=== PATIENT | female | born 1950 | race Caucasian/White ===

== ENCOUNTER → 2017-11-09 08:42 | Outpatient (CLI) | payer MEDICARE, SELFPAY ==
--- NOTE | 2017-11-09 08:49 | CI_ITS ---
Cerebrovascular Exam Indications: 780.4 Dizziness and giddiness. 433.10 Occlusion/stenosis of carotid artery without cerebral infarction. IMPRESSIONS 1. The bilateral vertebral arteries are patent with normal antegrade flow. 2. Study suggests 20-49%(upper end of scale)stenosis involving the right internal carotid artery. 3. Study suggests less than 20% stenosis involving the left internal carotid artery. No change from the study of 13-Jan-2014. History: Risk factors: Hypertension. Carotid duplex study. Complete study and Doppler flow study including spectral analysis, color and seo scale imaging. Height: Height: 165.1cm. Height: 65in. Weight: Weight: 75.3kg. Weight: 165.7lb. Body mass index: BMI: 27.6kg/m^2. Body surface area: BSA: 1.88m^2. Location: Vascular laboratory. Patient status: Outpatient. Tables: Arterial flow: + +--------+---------+ Location V sys V ed + +--------+---------+ Right CCA - proximal 51.9cm/s 13.4cm/s + +--------+---------+ Right CCA - distal 73.9cm/s 19.6cm/s + +--------+---------+ Right ECA 130cm/s --------- + +--------+---------+ Right ICA - proximal 93.5cm/s 19.6cm/s + +--------+---------+ Right ICA - mid 80.9cm/s 18.9cm/s + +--------+---------+ Right ICA - distal 95.9cm/s 29.1cm/s + +--------+---------+ Right vertebral 60.5cm/s --------- + +--------+---------+ Left CCA - proximal 63.6cm/s 12.6cm/s + +--------+---------+ Left CCA - distal 80.9cm/s 17.3cm/s + +--------+---------+ Left ECA 93.5cm/s --------- + +--------+---------+ Left ICA - proximal 101cm/s 22cm/s + +--------+---------+ Left ICA - mid 132cm/s -29.9cm/s + +--------+---------+ Left ICA - distal 135cm/s 33.8cm/s + +--------+---------+ Left vertebral 54.2cm/s --------- + +--------+---------+ Velocity ratios: + + + + + + Right, V sys Right, V ed Left, V sys Left, V ed + + + + + + Max ICA/dist CCA 1.3 1.48 1.67 1.95 + + + + + + (Report amended ) Electronically signed by: Eder Beckford [id number]
== END ==
PROVIDERS: PCP Family Medicine; Visit Provider Family Medicine
DX: R42 Dizziness and giddiness
CPT/HCPCS: 93880

== ENCOUNTER → 2017-11-16 13:09 | Outpatient (CLI) | payer MEDICARE, SELFPAY | PROVIDERS: PCP Family Medicine; Visit Provider Family Medicine | DX: G47.30 Sleep apnea, unspecified (principal); I10 Essential (primary) hypertension; R06.83 Snoring | CPT/HCPCS: G0399 ==

== ENCOUNTER → 2018-02-15 07:36 | Outpatient (CLI) | payer MEDICARE, SELFPAY ==
[2018-02-15 09:02] LABS: Alanine Aminotransferase 27 U/L (12-78); Albumin Level 3.8 gm/dL (3.4-5.0); Albumin/Globulin Ratio 1.1 (1.1-1.8); Alkaline Phosphatase 53 U/L (46-116); Anion Gap 13.8 mEq/L (5-15); Aspartate Amino Transferase 18 U/L (15-37); Bilirubin,Total 0.4 mg/dL (0.2-1.0); Blood Urea Nitrogen 16 mg/dL (7-18); Calcium 9.3 mg/dL (8.5-10.1); Carbon Dioxide 29 mmol/L (21.0-32.0); Chloride 103 mmol/L (98-107); Chol/HDL Ratio 3.1 (1-3.5); Cholesterol 132 mg/dL (140-200); Creatinine,Serum 0.95 mg/dL (0.55-1.02); Estimated Glomerular Filt Rate 58 ml/min (>60); GFR (African American) 71 ML/MIN (>60); Globulin 3.5 gm/dl (1.3-3.2); Glucose 178 mg/dL (74-106); HDL Cholesterol 42 mg/dL (29-89); Iron 62 ug/dl (28-170); LDL Cholesterol 70 mg/dL (0-130); Potassium 3.8 mmoL/L (3.5-5.1); Sodium 142 mmol/L (136-145); Total Protein,Serum 7.3 gm/dL (6.4-8.2); Triglycerides 101 mg/dL (30-200); VLDL Cholesterol 20 mg/dL (0-40)
== END ==
PROVIDERS: Visit Provider Family Medicine
DX: E11.9 Type 2 diabetes mellitus without complications (principal); E78.5 Hyperlipidemia, unspecified; I10 Essential (primary) hypertension
CPT/HCPCS: 36415; 80053; 80061; 83036; 83540; 85018

== ENCOUNTER → 2018-03-29 09:51 | Outpatient (CLI) | payer MEDICARE, SELFPAY ==
--- NOTE | 2018-03-29 09:53 | XR_ITS ---
XR foot wt bearing LT 3V HISTORY: ITS.REASON: pain ORDERING PHYSICIAN: Marybel Smith DPM PATIENT AGE: 67 years COMPARISON: None FINDINGS: There is mild hallux valgus with first metatarsophalangeal angle of 29 degrees with osteoarthritic changes of the first MTP joint and mild soft tissue thickening at the distal first MTP medially with minimal bony hypertrophy changes of first metatarsal distally. There is flexion of the are no. No other significant anomalies are evident IMPRESSION: Hallux valgus with osteoarthritis and bunion formation at the first MTP Hammertoe deformity of the third toe
--- NOTE | 2018-03-29 09:53 | XR_ITS ---
XR foot wt bearing RT 3V HISTORY: ITS.REASON: pain ORDERING PHYSICIAN: Marybel Smith DPM PATIENT AGE: 67 years COMPARISON: None FINDINGS: There is moderate hallux valgus of 32 degrees with mild osteoarthritic change of the first MTP bony hypertrophic changes at the distal aspect of the first metatarsal with minimal calcification soft tissues medial to the head of the first metatarsal. No other significant anomalies are evident. Minimal hypertrophic changes are present at the distal aspect of the tibia. IMPRESSION: Moderate hallux valgus with osteoarthritis and bunion formation at the first metatarsophalangeal
== END ==
PROVIDERS: Visit Provider Podiatrist
DX: B35.1 Tinea unguium (principal); E11.8 Type 2 diabetes mellitus with unspecified complications
CPT/HCPCS: 73630

== ENCOUNTER → 2018-03-29 11:48 | Outpatient (REF) | payer MEDICARE, SELFPAY | LOC: LAB 11:48 | PROVIDERS: Visit Provider Podiatrist | DX: B35.1 Tinea unguium (principal); E11.8 Type 2 diabetes mellitus with unspecified complications | CPT/HCPCS: 73630; 87102; 87206; 87220 ==

== ENCOUNTER → 2018-04-02 09:19 | Outpatient (POV) | payer MEDICARE, SELFPAY | PROVIDERS: Visit Provider Podiatrist | DX: Z00.00 Encounter for general adult medical examination without abnormal findings (principal) ==

== ENCOUNTER → 2018-07-23 08:27 | Outpatient (CLI) | payer MEDICARE, SELFPAY ==
--- NOTE | 2018-07-23 08:30 | MM_ITS ---
MM Dig screening mamm BI w/CAD ORDERING PHYSICIAN : Ramos Betts MD PATIENT AGE: 68 years GENDER: Female COMPARISON: May 2016, October 2013 and 2014 INDICATION: ITS.REASON: SCREENING no hormones. No new complaints.. Family history.: Mother with breast cancer age 50 TECHNIQUE: Standard CC and MLO images were obtained. R2 CAD reviewed. FINDINGS: Lower density breast with no areas of significant concern. Also moderate or density breast with fibroglandular elements most evident central and towards upper-outer quadrant. No significant change since prior studies with no suspicious or dominant mass or: No suspicious calcifications. No areas of significant architectural distortion Bilateral follow-up in one year recommended . IMPRESSION: Stable bilateral mammogram. No significant new findings. Bilateral follow-up in one year recommended. BI-RADS Category: 1 Negative RECOMMENDED FOLLOW-UP: 1YR 1 YEAR FOLLOW-UP (A letter has been sent to the patient regarding results of the study.)
== END ==
PROVIDERS: Family Provider Family Medicine; PCP Family Medicine; Visit Provider Family Medicine
DX: Z12.31 Encounter for screening mammogram for malignant neoplasm of breast (principal)
CPT/HCPCS: 77067

== ENCOUNTER → 2018-09-09 13:02 | Outpatient (CLI) | payer MEDICARE, SELFPAY ==
--- NOTE | 2018-09-09 13:13 | MR_ITS ---
MR cervical spine wo con, MR 3-d myelogram/MRCP HISTORY: Neck pain, left upper extremity pain, decreased range of motion of the neck ITS.REASON: evaluation for cervical spondylosis w/myelopathy ORDERING PHYSICIAN: Karey Lund MD PATIENT AGE: 68 years Comparison: CT 01-21-16 TECHNIQUE: Standard multiplanar multiecho sequences are performed without contrast. 3-D MIP and myelographic images are also rendered and reviewed FINDINGS: There is straightening of the cervical lordosis. This may be due to patient positioning or muscle spasm. The craniocervical junction has an unremarkable appearance. C2-C3: Unremarkable. C3-C4: Minimal bulging disc. C4-C5: Degenerative disc disease with bulging disc and posterior endplate ridging. There is narrowing of the canal at 6 mm along with bilateral lateral recess and foraminal narrowing. The bulging disc/osteophytes abut the cord with only minimal flattening anteriorly. C5-C6: Degenerative disc disease with bulging disc with broad-based disc osteophyte complex slightly eccentric toward the left. This is causing canal stenosis of 7 mm with mild impingement upon the anterior left aspect of the cord with moderate left lateral recess and foraminal narrowing with minimal flattening of the cord anteriorly and on the left. C6-C7: Degenerative disc disease with bulging disc eccentric toward the right with narrowing of the canal at 8 mm and mild flattening of the anterior right aspect of the cord from the bulging disc along with moderate right lateral recess and foraminal narrowing. C7-T1: Mild degenerative disc disease. T1-T2: Unremarkable. IMPRESSION: 1. C4-C5: Degenerative disc disease with bulging disc and posterior endplate ridging. There is narrowing of the canal at 6 mm along with bilateral lateral recess and foraminal narrowing. The bulging disc/osteophytes abut the cord with only minimal flattening anteriorly. 2. C5-C6: Degenerative disc disease with bulging disc with broad-based disc osteophyte complex slightly eccentric toward the left. This is causing canal stenosis of 7 mm with mild impingement upon the anterior left aspect of the cord with moderate left lateral recess and foraminal narrowing with minimal flattening of the cord anteriorly and on the left. 3. C6-C7: Degenerative disc disease with bulging disc eccentric toward the right with narrowing of the canal at 8 mm and mild flattening of the anterior right aspect of the cord from the bulging disc along with moderate right lateral recess and foraminal narrowing. 4. No extruded herniated disc
--- NOTE | 2018-09-09 13:13 | MR_ITS ---
MR head/brain wo con HISTORY: Gait disturbance, tremor, in balance, leg numbness, headacheITS.REASON: evaluation for cervical spondylosis w/myelopathy ORDERING PHYSICIAN: Karey Lund MD PATIENT AGE: 68 years Comparison: None TECHNIQUE: Standard multiplanar multiecho sequences are performed without contrast. FINDINGS: No evidence of acute infarction. There is generalized atrophy with moderate periventricular and subcortical T2 white matter hyperintensity consistent with ischemic change from microvascular disease. Small T2 hyperintensity involves the right and left aspect of the nir and may also be due to ischemic gliotic change. No midline shift, mass effect, intracranial hemorrhage, or hydrocephalus is evident. The cerebellopontine angles, cerebellum, and brainstem are unremarkable. No pituitary mass. Craniocervical junction has an unremarkable appearance. No mastoid effusion or sinus air-fluid level. IMPRESSION: 1. No acute intracranial findings. 2. Atrophy with microangiopathic changes
[2018-09-09 13:30] LABS: Blood Urea Nitrogen 14 mg/dL (7-18); Estimated Glomerular Filt Rate 71 ml/min (>60); GFR (African American) 86 ML/MIN (>60)
[2018-09-10 10:58] LABS: Folate >20.0 ng/mL (>3.0)
[2018-09-10 11:00] LABS: Vitamin B12 >2000 pg/mL (232-1245)
== END ==
PROVIDERS: Visit Provider Specialist
DX: E11.8 Type 2 diabetes mellitus with unspecified complications (principal); R20.0 Anesthesia of skin; R25.1 Tremor, unspecified; R26.89 Other abnormalities of gait and mobility; R29.2 Abnormal reflex
CPT/HCPCS: 36415; 70551; 72141; 76376; 82565; 82607; 82746; 84443; 84520

== ENCOUNTER → 2018-09-10 08:06 | Outpatient (CLI) | payer MEDICARE, SELFPAY ==
[2018-09-10 08:53] LABS: Hemoglobin A1C 7.6 % (0.0-7.0)
[2018-09-10 20:38] LABS: Alanine Aminotransferase 25 U/L (12-78); Albumin Level 3.5 gm/dL (3.4-5.0); Albumin/Globulin Ratio 1.1 (1.1-1.8); Alkaline Phosphatase 57 U/L (46-116); Aspartate Amino Transferase 19 U/L (15-37); Bilirubin,Total 0.2 mg/dL (0.2-1.0); Blood Urea Nitrogen 12 mg/dL (7-18); Calcium 8.8 mg/dL (8.5-10.1); Carbon Dioxide 28 mmol/L (21.0-32.0); Chloride 102 mmol/L (98-107); Chol/HDL Ratio 2.8 (1-3.5); Cholesterol 123 mg/dL (140-200); Creatinine,Serum 0.69 mg/dL (0.55-1.02); Estimated Glomerular Filt Rate 84 ml/min (>60); GFR (African American) 102 ML/MIN (>60); Globulin 3.1 gm/dl (1.3-3.2); Glucose 168 mg/dL (74-106); HDL Cholesterol 44 mg/dL (29-89); LDL Cholesterol 58 mg/dL (0-130); Sodium 140 mmol/L (136-145); Total Protein,Serum 6.6 gm/dL (6.4-8.2); Triglycerides 105 mg/dL (30-200); VLDL Cholesterol 21 mg/dL (0-40)
== END ==
PROVIDERS: PCP Family Medicine; Visit Provider Family Medicine
DX: E11.9 Type 2 diabetes mellitus without complications (principal); E78.5 Hyperlipidemia, unspecified; I10 Essential (primary) hypertension; Z79.84 Long term (current) use of oral hypoglycemic drugs
CPT/HCPCS: 36415; 80053; 80061; 83036

== ENCOUNTER → 2018-10-26 08:34 | Outpatient (POV) | payer MEDICARE, SELFPAY | PROVIDERS: Visit Provider Dermatology | DX: Z00.00 Encounter for general adult medical examination without abnormal findings (principal) ==

== ENCOUNTER → 2019-01-18 07:34 | Outpatient (CLI) | payer MEDICARE, SELFPAY ==
[2019-01-18 08:46] LABS: Alanine Aminotransferase 20 U/L (12-78); Albumin Level 3.9 gm/dL (3.4-5.0); Albumin/Globulin Ratio 1.2 (1.1-1.8); Alkaline Phosphatase 46 U/L (46-116); Anion Gap 14.1 mEq/L (5-15); Aspartate Amino Transferase 17 U/L (15-37); Bilirubin,Total 0.4 mg/dL (0.2-1.0); Blood Urea Nitrogen 14 mg/dL (7-18); Calcium 9.4 mg/dL (8.5-10.1); Carbon Dioxide 29 mmol/L (21.0-32.0); Chloride 101 mmol/L (98-107); Cholesterol 132 mg/dL (140-200); Creatinine,Serum 0.96 mg/dL (0.55-1.02); Estimated Glomerular Filt Rate 58 ml/min (>60); GFR (African American) 70 ML/MIN (>60); Globulin 3.3 gm/dl (1.3-3.2); Glucose 143 mg/dL (74-106); HDL Cholesterol 44 mg/dL (29-89); LDL Cholesterol 67 mg/dL (0-130); Potassium 4.1 mmoL/L (3.5-5.1); Sodium 140 mmol/L (136-145); Total Protein,Serum 7.2 gm/dL (6.4-8.2); Triglycerides 104 mg/dL (30-200); VLDL Cholesterol 21 mg/dL (0-40)
[2019-01-18 09:27] LABS: Hemoglobin A1C 6.8 % (0.0-7.0)
== END ==
PROVIDERS: Visit Provider Family Medicine
DX: E11.9 Type 2 diabetes mellitus without complications (principal); E78.5 Hyperlipidemia, unspecified; I10 Essential (primary) hypertension; Z79.84 Long term (current) use of oral hypoglycemic drugs
CPT/HCPCS: 36415; 80053; 80061; 83036

== ENCOUNTER → 2019-01-28 09:58 | Outpatient (CLI) | payer MEDICARE, SELFPAY ==
--- NOTE | 2019-01-28 10:02 | XR_ITS ---
DEXA SCAN.-BONE DENSITY STUDY HIPS AND LUMBAR SPINE HISTORY: Postmenopausal female 68-year-old , history of asthma diabetes hypertension TECHNIQUE: DEXA scan hip and lumbar spine The most complete data summary and color graphic presentation of the today's ( and any prior ) DEXA findings are available in PACS. Definition and treatment guidelines included. COMPARISON: November 2012 DEXA LUMBAR SPINE: Above normal bone density Overall mean lumbar L1-L4 T score 1.6 with BMD1.369 g/cm sq L2 vertebral body demonstrates the lowest T score 1.3 with BMD1.358 g/cm sq . ---- 2012 prior DEXA the mean T score 1.0 with BMD was1.3g/cm sq Thus when comparing today's study to the prior exam there's been 2.5% % increasing mean bone density at the lumbar spine. In the interval. HIPS: Femoral neck density is best predictor of hip fracture risk . Right demonstrates the lowest T score 0.3 with BMD1.082 g/cm sq . Averaging region included reveals today's overall mean Hip hip T score 1.5 with BMD1.2 g/cm sq . 2013 DEXA hip overall T score 2.2 with mean BMD1.281 g/cm sq Thus this reflects a 6.3% % decrease in overall mean bone density at the hips in the interval. IMPRESSION 1. LUMBAR SPINE: Normal/Above normal bone density with T score = 1.6 2. HIPS: . Normal bone density. Overall T score equal 1.5. Lowest femoral neck T score = 0.3 WHO criteria for post-menopausal, Women: Normal: T-score at or above -1 SD Osteopenia: T-score between -1 and -2.5 SD Osteoporosis: T-score at or below -2.5 SD
== END ==
PROVIDERS: PCP Family Medicine; Visit Provider Family Medicine
DX: Z78.0 Asymptomatic menopausal state (principal)
CPT/HCPCS: 77080

== ENCOUNTER → 2019-06-16 07:49 | Outpatient (CLI) | payer MEDICARE, SELFPAY ==
--- NOTE | 2019-06-16 07:53 | CA_ITS ---
APPROVED REPORT EXAM: Comprehensive 2D, Doppler, and color-flow Echocardiogram Rvda Master Certified Rv Technician: Lily Gutierres RT(R) Ht: 5 ft 6 in Wt: 174lbs BSA: 1.88 BP: 108/63 mmHg Indications: Diabetes, Syncope, Hyperlipidemia, Hypertension/HDD 2D Dimensions IVSd 1.60 cm F: 0.6-1.0 LVEF (Visual) 73.50 % PWd 1.50 cm F: 0.6 - 1.0 LVDd 3.60 cm F: 3.9 - 5.3 LVDs 2.10 cm F: 2.2 - 3.5 LVOT 2.10 cm (M/F) 1.5-2.5 M-Mode Dimensions LA Diam 4.30 cm (1.9-4.0) Ao Diam 2.90 cm (2.0-3.7) AV Cusp 2.00 cm (1.5-2.6) LV Diastology E/A Ratio 1.1 MED E' 6.73 (< 7 cm/sec) E'/MED E' Ratio 16.20 (>14) LAT E' 8.29 (<10 cm/sec) E/LAT E' Ratio 13.10 (>14) Mitral Valve MV E Max Ramón. 109.00 (40-130 cm/s) MV A Velocity 102.00 (40-130 cm/s) E/A Ratio 1.10 Tricuspid Valve TR P. Velocity 311.00 cm/s RAP Estimate 15.00 mmHg RVSP 54.00 mmHg Left Ventricle Left atrium is mildly enlarged, left ventricle is normal size, mild concentric left ventricular hypertrophy, visually estimated ejection fraction 55% with no regional wall motion abnormality. Grade 1 diastolic dysfunction seen with tissue Doppler evidence of raise left atrial pressure. Right Ventricle Right atrium and right ventricle are mildly enlarged with normal contractility. Aortic Valve Aortic valve is thickened and calcified, without aortic stenosis, there is no aortic insufficiency. Mitral Valve Mitral valve leaflets are minimally thickened, there is no mitral stenosis, there is mild mitral regurgitation. Tricuspid Valve Tricuspid valve leaflets are minimally thickened, there is no tricuspid stenosis, there is mild tricuspid regurgitation, calculated right ventricular systolic pressure is 55 mmHg consistent with moderate pulmonary hypertension. Pulmonic Valve Pulmonic valve is poorly visualized. Great Vessels Aortic root is normal size. Pericardium No significant pericardial effusion noted. Conclusion 1. Mild biatrial enlargement, normal left ventricular size, mild concentric left ventricular hypertrophy, visually estimated ejection fraction 55% with no regional wall motion abnormality. Grade 1 diastolic dysfunction seen with tissue Doppler evidence of raise left atrial pressure. 2. Mildly enlarged right ventricle with normal contractility. 3. Mild mitral and tricuspid regurgitation, calculated right ventricular systolic pressure is 55 mmHg consistent moderate pulmonary hypertension. 4. No significant pericardial effusion noted. Electronically signed by : Shivam Gerard, 06/17/2019 17:08:37
--- NOTE | 2019-06-16 08:23 | CA_ITS ---
APPROVED REPORT Melting Operator: JUDY Laterality: Bilateral Study Quality: Good Indications: Syncope Risk Factors Hypertension: Hyperlipidemia Diabetes, Doppler Spectral Velocity Analysis ECA (R) 171.00/11.90 cm/s ECA (L) 93.00/6.87 cm/s dICA (R) 121.00/30.40 cm/s dICA (L) 89.30/18.50 cm/s Miguel A (R) 115.00/23.00 cm/s Miguel A (L) 85.60/20.10 cm/s pICA (R) 105.00/18.50 cm/s pICA (L) 92.90/17.10 cm/s dCCA (R) 95.40/11.70 cm/s dCCA (L) 110.00/13.30 cm/s pCCA (R) 60.20/13.40 cm/s pCCA (L) 68.20/9.64 cm/s Vert (R) 38.60/10.40 cm/s Vert (L) 38.60/12.60 cm/s ICA/CCA 1.27 ICA/CCA 0.84 Findings Duplex evaluation demonstrates stenosis of the right proximal internal carotid artery in the range of 20-49% (upper end of scale) with PSV <140 cm/sec, EDV <100 cm/sec, and IC/CC Ratio <4.0. Duplex evaluation demonstrates stenosis of the left proximal internal carotid artery in the range of 20-49% with PSV <140 cm/sec, EDV <100 cm/sec, and IC/CC Ratio <4.0. Antegrade flow seen bilateral vertebral arteries. Conclusion Duplex evaluation demonstrates stenosis of the right proximal internal carotid artery in the range of 20-49% (upper end of scale) with PSV <140 cm/sec, EDV <100 cm/sec, and IC/CC Ratio <4.0. Duplex evaluation demonstrates stenosis of the left proximal internal carotid artery in the range of 20-49% with PSV <140 cm/sec, EDV <100 cm/sec, and IC/CC Ratio <4.0. Antegrade flow seen bilateral vertebral arteries. Electronically signed by : Samm Guzman MD 06/16/2019 13:22:06
== END ==
PROVIDERS: PCP Family Medicine; Visit Provider Family Medicine
DX: R55 Syncope and collapse (principal)
CPT/HCPCS: 93306; 93880

== ENCOUNTER → 2019-06-18 11:06 | Outpatient (CLI) | payer MEDICARE, SELFPAY | PROVIDERS: PCP Family Medicine; Visit Provider Family Medicine | DX: R55 Syncope and collapse (principal) | CPT/HCPCS: 93225; 93226 ==

== ENCOUNTER → 2019-07-04 09:56 | Outpatient (CLI) | payer MEDICARE, SELFPAY | PROVIDERS: PCP Family Medicine; Visit Provider Urology | DX: E11.42 Type 2 diabetes mellitus with diabetic polyneuropathy (principal); E78.5 Hyperlipidemia, unspecified; I10 Essential (primary) hypertension; I27.20 Pulmonary hypertension, unspecified; I34.0 Nonrheumatic mitral (valve) insufficiency; I47.1 Supraventricular tachycardia; R06.09 Other forms of dyspnea; R42 Dizziness and giddiness; R53.83 Other fatigue; R55 Syncope and collapse; R94.31 Abnormal electrocardiogram [ECG] [EKG] | CPT/HCPCS: 93270 ==

== ENCOUNTER → 2019-07-07 07:47 | Outpatient (CLI) | payer MEDICARE, SELFPAY ==
--- NOTE | 2019-07-07 | CA_ITS ---
APPROVED REPORT Exam: Pharmacologic Technologist: Sangeetha Ibarra, Ht: 5 ft 6 in Wt: 175 lbs BSA: 1.89 m2 HR: 67 bpm BP: 161/62 mmHg Medical History Medical History: HTN, Hyperlipidemia, Diabetes Medications: Omeprazole,,,,, Metoprolol,,,,, Asa,,,,, Metformin,,,,, Losartan,,,,, Glimepiride,,,,, Lasix,,,,, SyMBICORT,,,,, Montelukast,,,,, PaROXETINE,,,,, DOxyZOSIN,,,,, PriMIONE,,,,, Allergies: sulfa Cardiac Risk Factors: HTN, Hyperlipidemia, DM, SOB Stress Test Details Test: LEXISCAN HR Resting HR: 67 bpm Max Heart Rate (APMHR): 150 bpm Max HR Achieved: 96 bpm Target HR (85% APMHR): 127 bpm % of APMHR: 64 Recovery HR: 76 bpm BP Resting BP: 161/62 mmHg Max BP: 161/62 mmHg Recovery BP: 96.0/56.0 mmHg ECG Resting ECG: NSR NS ST ABNORMALITIES INFERIORLY AND LATERALLY Medications Administered AMINOPHYLLINE (75.0 mg at ) Clinical Exercise duration: 04:02 min Highest Stage Achieved: Stress ECG Conclusion DURING INFUSION PATIENT HAD SOA,MALAISE,HEADACHE,AND NECK PRESSURE. NO ARRHYTHMIAS/ECTOPY. EXAGGERATION OF BASELINE ST ABNORMALITIES INFERIORLY AND LATERALLY WITH T WAVE INVERSION. EKG is positive for ischemia. MYOVIEW IMAGES REPORTED SEPARATELY. Test Summary REST . . . . . . . Sitting REST 12:35 . . 67 . 161/ 62 . . Stage 1 . . . . . . . Cardiolite injected Stage 1 01:00 . . 85 . . . . Stage 2 01:00 . . 86 . 126/ 49 . . Stage 3 01:00 . . 72 . 123/ 39 . . Stage 4 01:00 . . 72 . 111/ 49 . . Stage 4 01:02 . . 72 . 111/ 49 . Stop exercise at 04:02 RECOVERY 01:00 . . 76 . . . . RECOVERY 02:00 . . 77 . 96/ 56 . . RECOVERY 03:00 . . 74 . 137/ 55 . . RECOVERY 04:00 . . 72 . 149/ 58 . . RECOVERY 05:00 . . 71 . 149/ 58 . . RECOVERY 06:00 . . 70 . 129/ 63 . . RECOVERY 07:00 . . 69 . 129/ 63 . . RECOVERY 08:00 . . 66 . 143/ 65 . . RECOVERY 08:01 . . 66 . 143/ 65 . . Electronically signed by : Shivam Gerard, 07/07/2019 15:30:42
--- NOTE | 2019-07-07 07:48 | NM_ITS ---
APPROVED REPORT Exam: Nuclear Stress Test Indication: soa,palpiations,syncope,fatigue Patient Location: Outpatient Ht: 5 ft 6 in Wt: 175 lbs Bra Size: 40c HR: 67 bpm BP: 161/62 mmHg BSA: 1.89 m2 BMI: 28.2 History: soa,palpiations,syncope,fatigue Procedure: Patient received a 0.4 mg of intravenous Lexiscan, resting heart rate 67 bpm, resting blood pressure 161/62 mmHg, with Lexiscan maximum heart rate achived was 78 bpm which is Less than 85 % of the maximum predicted heart rate and blood pressure was 126/49 mmHg. Electrocardiogram Resting electrocardiogram showed sinus rhythm, with Lexiscan there is a millimeter ST segment depression noted from the baseline EKG. The EKG portion of the Lexiscan Myoview is positive for ischemia. Cardiac Stress and Resting SPECT Images: Cardiac Stress and Resting SPECT images were obtained using technetium 99m Myoview 32.6 mCi stress and 10.57 mCi at rest. Gated SPECT with analysis of segmental wall motion and calculation of the ejection fraction also done. Cardiac stress and resting SPECT images show uniform myocardial activity without segmental perfusion abnormality, computer derived ejection fraction is over 65% with no regional wall motion abnormality, right ventricle is normal size and contractility. Conclusion: 1. The EKG portion of the Lexiscan Myoview is positive for ischemia. 2. No scintigraphic evidence of reversible ischemia seen, computer derived ejection fraction is over 65% with no regional wall motion abnormality, right ventricle is normal size and contractility. 3. Equivocal myocardial perfusion imaging. Electronically signed by : Shivam Gerard, 07/07/2019 15:28:58
--- NOTE | 2019-07-07 11:27 | HMH.ITSHM ---
Current Home Medications as stated by this patient Nani Alex or footwear sales representative. [] asa doxazosin furesemid glimepiride losartan metformin metoprolol
== END ==
PROVIDERS: PCP Family Medicine; Visit Provider Urology
DX: E11.42 Type 2 diabetes mellitus with diabetic polyneuropathy (principal); E78.5 Hyperlipidemia, unspecified; I10 Essential (primary) hypertension; I27.20 Pulmonary hypertension, unspecified; I34.0 Nonrheumatic mitral (valve) insufficiency; I47.1 Supraventricular tachycardia; R06.09 Other forms of dyspnea; R42 Dizziness and giddiness; R53.83 Other fatigue; R55 Syncope and collapse; R94.31 Abnormal electrocardiogram [ECG] [EKG]; Z79.84 Long term (current) use of oral hypoglycemic drugs
CPT/HCPCS: 78452; 93017; A9502; J2785

== ENCOUNTER → 2019-07-28 07:13 | Outpatient (CLI) | payer MEDICARE, SELFPAY ==
[2019-07-28 08:02] LABS: Hemoglobin A1C 7.6 % (0.0-7.0)
[2019-07-28 08:39] LABS: Alanine Aminotransferase 14 U/L (12-78); Albumin Level 3.7 gm/dL (3.4-5.0); Albumin/Globulin Ratio 1.1 (1.1-1.8); Alkaline Phosphatase 46 U/L (46-116); Anion Gap 15.4 mEq/L (5-15); Aspartate Amino Transferase 9 U/L (15-37); Bilirubin,Total 0.2 mg/dL (0.2-1.0); Blood Urea Nitrogen 17 mg/dL (7-18); Calcium 9.2 mg/dL (8.5-10.1); Carbon Dioxide 28 mmol/L (21.0-32.0); Chloride 101 mmol/L (98-107); Chol/HDL Ratio 3.1 (1-3.5); Cholesterol 131 mg/dL (140-200); Creatinine,Serum 0.94 mg/dL (0.55-1.02); Estimated Glomerular Filt Rate 59 ml/min (>60); GFR (African American) 71 ML/MIN (>60); Globulin 3.3 gm/dl (1.3-3.2); Glucose 177 mg/dL (74-106); HDL Cholesterol 42 mg/dL (29-89); LDL Cholesterol 69 mg/dL (0-130); Potassium 4.4 mmoL/L (3.5-5.1); Sodium 140 mmol/L (136-145); Triglycerides 99 mg/dL (30-200); VLDL Cholesterol 20 mg/dL (0-40)
== END ==
PROVIDERS: Visit Provider Family Medicine
DX: E11.9 Type 2 diabetes mellitus without complications (principal); E78.5 Hyperlipidemia, unspecified; I10 Essential (primary) hypertension; Z79.84 Long term (current) use of oral hypoglycemic drugs
CPT/HCPCS: 36415; 80053; 80061; 83036

== ENCOUNTER → 2019-08-15 10:23 | Outpatient (CLI) | payer MEDICARE, SELFPAY | PROVIDERS: PCP Family Medicine; Visit Provider Urology | DX: R42 Dizziness and giddiness (principal) | CPT/HCPCS: 93270 ==

== ENCOUNTER → 2019-08-25 07:30 | Outpatient (CLI) | payer MEDICARE, SELFPAY ==
[2019-08-26 13:19] LABS: Occult Blood,Stool Negative (Negative)
[2019-08-26 13:19] LABS: Occult Blood,Stool Negative (Negative)
[2019-08-26 13:19] LABS: Occult Blood,Stool Negative (Negative)
== END ==
PROVIDERS: Visit Provider Internal Medicine Gastroenterology
DX: D64.9 Anemia, unspecified (principal)
CPT/HCPCS: 82272; G0328

== ENCOUNTER → 2019-08-26 13:00 | Outpatient (CLI) | payer MEDICARE, SELFPAY ==
--- NOTE | 2019-08-26 13:04 | MM_ITS ---
PROCEDURE: MM DIG SCREENING MAMM BI W/CAD CLINICAL INDICATION: SCREENING There is a history of breast cancer patient's mother diagnosed 50. There has been a previous biopsy left breast for benign disease. COMPARISON: [facility] DIG MAMM-SCREEN JOSE F from 11/08/2014 [facility] DIG MAMM-SCREEN JOSE F from 05/21/2016 [facility] MM Dig screening mamm BI w/CAD from 07/23/2018 TECHNIQUE: Standard CC and MLO images were obtained. R2 CAD reviewed. FINDINGS: Scattered fibroglandular densities are seen throughout both breasts. There is a stable small asymmetric density upper quadrant right breast only definitely seen on the MLO view. There are scattered benign-appearing microcalcifications in each breast. There is no suspicious lesion and no suspicious microcalcifications. IMPRESSION: Fibrofatty parenchyma with no suspicious lesions seen BI-RAD Category: 2 Benign Finding(s) FOLLOW-UP: 1YR 1 Year Follow-up (A letter has been sent to the patient regarding results of the study.) Dictated by: Dr. Ezekiel Whitman MD 08/30/2019 15:[address] Ezekiel Whitman MD in [place] 08/30/2019 15:47
== END ==
PROVIDERS: PCP Family Medicine; Visit Provider Family Medicine
DX: Z12.31 Encounter for screening mammogram for malignant neoplasm of breast (principal)
CPT/HCPCS: 77067

== ENCOUNTER → 2019-09-14 10:58 | Outpatient (CLI) | payer MEDICARE, SELFPAY ==
--- NOTE | 2019-09-14 11:06 | XR_ITS ---
PROCEDURE: XR CHEST 2V CLINICAL HISTORY: COUGH And congestion COMPARISON: XR CHEST PORTABLE from 07/21/2019 FINDINGS: The lung bartlett are well-expanded and appear clear of infiltrate. There is mild generalized cardiomegaly however the vascularity is normal and there is no pleural fluid. There minor degenerate changes lower and midthoracic spine. IMPRESSION: No acute findings. Dictated by: Dr. Ezekiel Whitman MD 09/14/2019 17:[address] Ezekiel Whitman MD in [place] 09/14/2019 17:42
== END ==
PROVIDERS: PCP Family Medicine; Visit Provider Family Medicine
DX: R05 Cough (principal)
CPT/HCPCS: 71046

== ENCOUNTER → 2019-10-14 11:20 | Outpatient (CLI) | payer MEDICARE, SELFPAY ==
[2019-10-14 11:54] LABS: Basophils % 0.8 % (0.1-2.0); Eosinophils # 0.1 K/mm3 (0.0-0.4); Eosinophils % 3.1 % (0.1-12.0); Hematocrit 35.8 % (37.0-47.0); Hemoglobin 11.5 g/dL (12.2-16.2); Lymphocytes # 0.9 K/mm3 (0.7-4.5); Lymphocytes % 19.5 % (10-50); Mean Corpuscular HGB Conc 32.1 g/dL (31.8-35.4); Mean Corpuscular Hemoglobin 26.4 pg (27.0-31.2); Mean Corpuscular Volume 82.2 fl (81-99); Mean Platelet Volume 7.5 fl (7.4-10.4); Monocytes # 0.3 K/mm3 (0.1-1.0); Monocytes % 6.1 % (1.7-9.3); Neutrophils # 3.1 K/mm3 (1.8-7.8); Neutrophils % 70.4 % (37.0-80.0); Platelet Count 231 K/mm3 (142-424); Red Blood Count 4.36 M/mm3 (4.20-5.40); Red Cell Distribution Width 16.4 % (11.5-17.5); White Blood Count 4.4 K/mm3 (4.8-10.8)
[2019-10-14 12:39] LABS: Iron 49 ug/dl (28-170)
[2019-10-15 09:59] LABS: Transferrin 238 mg/dL (200-370)
== END ==
PROVIDERS: Visit Provider Family Medicine
DX: D64.9 Anemia, unspecified (principal)
CPT/HCPCS: 36415; 83540; 84466; 85025

== ENCOUNTER → 2019-11-01 08:51 | Outpatient (POV) | payer MEDICARE, SELFPAY | PROVIDERS: Visit Provider Dermatology | DX: Z00.00 Encounter for general adult medical examination without abnormal findings (principal) ==

== ENCOUNTER → 2020-01-27 07:04 | Outpatient (CLI) | payer MEDICARE, SELFPAY ==
[2020-01-27 07:29] LABS: Basophils % 0.9 % (0.1-2.0); Eosinophils # 0.2 K/mm3 (0.0-0.4); Eosinophils % 4.1 % (0.1-12.0); Hematocrit 38.5 % (37.0-47.0); Hemoglobin 12.8 g/dL (12.2-16.2); Lymphocytes # 1.1 K/mm3 (0.7-4.5); Lymphocytes % 23.8 % (10-50); Mean Corpuscular HGB Conc 33.3 g/dL (31.8-35.4); Mean Corpuscular Hemoglobin 28.5 pg (27.0-31.2); Mean Corpuscular Volume 85.6 fl (81-99); Mean Platelet Volume 7.9 fl (7.4-10.4); Monocytes # 0.3 K/mm3 (0.1-1.0); Monocytes % 7.5 % (1.7-9.3); Neutrophils # 2.8 K/mm3 (1.8-7.8); Neutrophils % 63.8 % (37.0-80.0); Platelet Count 202 K/mm3 (142-424); White Blood Count 4.5 K/mm3 (4.8-10.8)
[2020-01-27 10:49] LABS: Hemoglobin A1C 6.3 % (4.0-6.0)
[2020-01-27 12:17] LABS: Chloride 97 mmol/L (98-107); Potassium 4.5 mmoL/L (3.5-5.1); Sodium 138 mmol/L (136-145)
[2020-01-27 12:19] LABS: Alanine Aminotransferase 20 U/L (12-78); Alkaline Phosphatase 38 U/L (38-126); Anion Gap 15.5 mEq/L (5-15); Aspartate Amino Transferase 28 U/L (14-36); Bilirubin,Total 0.3 mg/dl (0.2-1.3); Blood Urea Nitrogen 17 mg/dl (7-17); Carbon Dioxide 30 mmol/L (22.0-30.0); Estimated Glomerular Filt Rate 83 ml/min (>60); GFR (African American) 100 ML/MIN (>60)
[2020-01-27 12:20] LABS: Albumin Level 4.4 g/dl (3.5-5.0); Albumin/Globulin Ratio 1.6 (1.1-1.8); Calcium 10.1 mg/dl (8.4-10.2); Chol/HDL Ratio 3.3 (1-3.5); Cholesterol 121 mg/dl (140-200); Globulin 2.7 g/dL (1.3-3.2); Glucose 115 mg/dl (74-100); HDL Cholesterol 37 mg/dl (40-60); Iron 61 ug/dL (37-170); Total Protein,Serum 7.1 g/dl (6.3-8.2); Triglycerides 94 mg/dl (30-150); VLDL Cholesterol 19 mg/dL (0-40)
[2020-01-27 12:32] LABS: Direct LDL Cholesterol 77.83 mg/dL (100-129)
== END ==
PROVIDERS: Visit Provider Family Medicine
DX: D64.9 Anemia, unspecified (principal); E78.5 Hyperlipidemia, unspecified; I10 Essential (primary) hypertension; E11.9 Type 2 diabetes mellitus without complications; Z79.84 Long term (current) use of oral hypoglycemic drugs
CPT/HCPCS: 36415; 80053; 80061; 83036; 83540; 85025

== ENCOUNTER 2020-04-08 13:41 | Emergency (ER) | payer MEDICARE, SELFPAY ==
[2020-04-08 13:42] VITALS: BP 155/68; PULSE 77; RESP 22; TEMP 36.7; O2SAT 96; BMI 24.8
[2020-04-08 14:18] VITALS: BP 141/56; PULSE 68; RESP 18; O2SAT 97
--- NOTE | 2020-04-08 14:19 | XR_ITS ---
PROCEDURE: XR CHEST 2V Patient Age:69Y CLINICAL HISTORY: ASTHMA ATTACK Moderate persistent asthma attack. Acute exacerbation COMPARISON: XR CHEST 2V from 09/14/2019 FINDINGS: T PA and lateral chest performed. Mild higher cardiomegaly again observed.. Upper normal pulmonary vascularity. The lissette and superior mediastinal structures stable with calcified nodes right lissette. Question slight coarsening of central markings particular on right perihilar region. May reflect some mild central airway inflammatory changes as can be seen with bronchitis or asthma but very subtle, nonspecific, and equivocal. These features along with calcified costochondral rib ends accounts for the slight increase densities towards the right infrahilar region. No focal pneumonia. Blunting at both right left CP angle noted and likely reflects some mild chronic changes;. Posterior sulcus is sharp with no pleural effusion here. . Chest wall ribs unremarkable. Mild degenerative changes T-spine stable IMPRESSION: No focal pneumonia. Basically stable CXR Only question subtle coarsening of central airways and central markings particularly right perihilar region-a could reflect asthma and/or bronchitis Mild cardiomegaly again noted Upper normal pulmonary vascularity. Dictated by: Eder Beckford MD 04/08/2020 21:41 Electronically signed by Eder Beckford MD in [place] 04/08/2020 21:41
--- NOTE | 2020-04-08 14:52 | HMH.EDGENADL ---
ED Disposition Clinical Impression: Asthma exacerbation Qualifiers: Asthma severity: moderate Asthma persistence: persistent Qualified Code(s): J45.41 - Moderate persistent asthma with (acute) exacerbation Disposition: Home, Self-Care Condition on Discharge: Good Instructions: DI for Asthma -- Adult Additional Instructions: Prednisone for 2 more days as prescribed. Rescue inhaler as needed. Follow-up with primary care provider or return to emergency room if worsening shortness of breath or new symptoms such as fever, chest pain, or coughing up blood. Prescriptions: predniSONE [Prednisone 20mg Tab] 20 mg PO BID #4 tab Prescription Printed Referrals: Ramos Betts MD [Primary Care Provider] - - Critical Care Critical Care Time: No Attestation: On 04/08/20, the high probability of a clinically significant, sudden or life threatening deterioration of the following system(s) required my full and direct attention, intervention and personal management. The time I documented below is in addition to time spent performing reported procedures but includes the following listed in this critical care notation. Medical Decision Making - Gagan Inquiry Pt receiving controlled substance: No Vital Signs: 04/08/20 13:42 04/08/20 14:18 Temperature 98.1 F Temperature Source Oral Pulse Rate [Right Radial] 77 68 Respiratory Rate 22 18 Blood Pressure [Right Arm] 155/68 H 141/56 H Blood Pressure Mean [Right Arm] 97 84 Blood Pressure Source [Right Arm] Automatic Cuff Automatic Cuff Blood Pressure Position [Right Arm] Sitting Sitting 02 Sat by Pulse Oximetry 96 97 Oxygen Delivery Method Room Air Orders (Tests/Meds): ED MEDICATIONS Generic Name Dose Route Start Last Admin Trade Name Freq PRN Reason Stop Dose Admin Albuterol Sulfate 2 puffs 04/08/20 18:00 Proventil-Hfa 90mcg/Puff Inhaler 05/08/20 17:59 Q6RT ZARI Discontinued Medications Generic Name Dose Route Start Last Admin Trade Name Freq PRN Reason Stop Dose Admin Albuterol/Ipratropium 3 ml 04/08/20 13:45 04/08/20 13:45 Duoneb 3ml Neb 04/08/20 13:46 3 ml ONCE ONE Administration Miscellaneous 1 unit 04/08/20 15:01 Aerochamber/Optihaler MC 04/08/20 15:02 ONCE ONE Prednisone 40 mg 04/08/20 15:01 Deltasone 20mg Tablet PO 04/08/20 15:02 ONCE ONE ORDERS Category Date Time Status Chest XR 2 view (NOT portable) [XR chest 2V] Stat Exams 04/08/20 14:19 Taken - Radiology Data #1 Image(s): Chest Image Reviewed: Yes I reviewed the patient's radiology image Preliminary Findings: Normal/NAD No change from prior. General Adult HPI - General Chief complaint: Shortness of Breath/Dyspnea Stated complaint: asthma attack Time Seen by Provider: 04/08/20 14:52 Mode of Arrival: Ambulatory Limitations: No Limitations Description of Symptoms (Recalled from ER Triage Doc. 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 PT STATES THAT SHE USED HER ALBUTEROL RESCUE INHALER BUT NOTICED AFTERWARDS THAT IT HAD . - History of Present Illness HPI narrative: The patient states that 1 hour prior to arrival she began having an asthma attack. She says it was typical of previous asthma attacks, consisted of wheezy coughing. She used her rescue inhaler but noticed that it was . She says she has not used it in quite some time. She is on Symbicort inhaler daily. Normal triggers for her asthma are hot humid weather, but she says she was not exposed to hot humid weather today. She does not know what triggered her asthma attack today. She says her thought she should come in for a breathing treatment, and since receiving a breathing treatment here she feels much better. She was not ill prior to the onset of the asthma attack. No fever. She was not coughing prior. - Related Data Home Medications Medication Instructions Recorded Confirmed al
[2020-04-08 15:11] VITALS: BP 123/76; PULSE 66; RESP 16; TEMP 36.7; O2SAT 99
== END 2020-04-08 15:13 | disposition home or self-care (01) ==
PROVIDERS: Emergency Provider Emergency Medicine; PCP Family Medicine
DX: J45.41 Moderate persistent asthma with (acute) exacerbation (principal); I25.10 Atherosclerotic heart disease of native coronary artery without angina pectoris; E78.5 Hyperlipidemia, unspecified; I10 Essential (primary) hypertension; Z87.442 Personal history of urinary calculi; Z88.2 Allergy status to sulfonamides; Z79.899 Other long term (current) drug therapy
CPT/HCPCS: 71046; 99282

== ENCOUNTER → 2020-06-29 07:08 | Outpatient (CLI) | payer MEDICARE, SELFPAY ==
[2020-06-29 07:56] LABS: Basophils # 0.1 K/mm3 (0-0.2); Basophils % 1.4 % (0.1-2.0); Eosinophils # 0.1 K/mm3 (0.0-0.4); Eosinophils % 2.9 % (0.1-12.0); Hematocrit 39.5 % (37.0-47.0); Hemoglobin 13.6 g/dL (12.2-16.2); Lymphocytes % 22.3 % (10-50); Mean Corpuscular HGB Conc 34.4 g/dL (31.8-35.4); Mean Corpuscular Hemoglobin 30.8 pg (27.0-31.2); Mean Corpuscular Volume 89.5 fl (81-99); Mean Platelet Volume 7.7 fl (7.4-10.4); Monocytes # 0.4 K/mm3 (0.1-1.0); Monocytes % 7.9 % (1.7-9.3); Neutrophils % 65.5 % (37.0-80.0); Platelet Count 181 K/mm3 (142-424); Red Blood Count 4.41 M/mm3 (4.20-5.40); Red Cell Distribution Width 13.4 % (11.5-17.5); White Blood Count 4.6 K/mm3 (4.8-10.8)
[2020-06-29 09:11] LABS: Chloride 99 mmol/L (98-107)
[2020-06-29 09:12] LABS: Potassium 3.8 mmoL/L (3.5-5.1); Sodium 140 mmol/L (136-145)
[2020-06-29 09:14] LABS: Alanine Aminotransferase 18 U/L (12-78); Alkaline Phosphatase 42 U/L (38-126); Anion Gap 14.8 mEq/L (5-15); Aspartate Amino Transferase 23 U/L (14-36); Bilirubin,Total 0.3 mg/dl (0.2-1.3); Blood Urea Nitrogen 13 mg/dl (7-17); Carbon Dioxide 30 mmol/L (22.0-30.0); Cholesterol 106 mg/dl (140-200); Estimated Glomerular Filt Rate 83 ml/min (>60); GFR (African American) 100 ML/MIN (>60); Iron 71 ug/dL (37-170); Triglycerides 71 mg/dl (30-150); VLDL Cholesterol 14 mg/dL (0-40)
[2020-06-29 09:15] LABS: Albumin Level 3.9 g/dl (3.5-5.0); Albumin/Globulin Ratio 1.7 (1.1-1.8); Calcium 9.7 mg/dl (8.4-10.2); Chol/HDL Ratio 2.4 (1-3.5); Globulin 2.3 g/dL (1.3-3.2); Glucose 144 mg/dl (74-100); HDL Cholesterol 44 mg/dl (40-60); Total Protein,Serum 6.2 g/dl (6.3-8.2)
[2020-06-29 09:26] LABS: Direct LDL Cholesterol 55.26 mg/dL (100-129)
[2020-06-29 10:34] LABS: Hemoglobin A1C 6.7 % (4.0-6.0)
== END ==
PROVIDERS: Visit Provider Family Medicine
DX: D64.9 Anemia, unspecified (principal); E78.5 Hyperlipidemia, unspecified; E11.9 Type 2 diabetes mellitus without complications; I10 Essential (primary) hypertension; Z79.84 Long term (current) use of oral hypoglycemic drugs
CPT/HCPCS: 36415; 80053; 80061; 83036; 83540; 85025

== ENCOUNTER → 2020-08-01 08:35 | Outpatient (CLI) | payer MEDICARE, SELFPAY ==
--- NOTE | 2020-08-01 08:35 | CA_ITS ---
APPROVED REPORT Dyed Raw Stock Blower Feeder: WINSTON Laterality: Bilateral Study Quality: Excellent Indications: makayla Doppler Spectral Velocity Analysis dICA (R) 102.00/24.80 cm/s dICA (L) 66.80/15.50 cm/s Miguel A (R) 84.10/22.50 cm/s Miguel A (L) 81.80/18.70 cm/s pICA (R) 89.90/18.60 cm/s pICA (L) 78.10/18.70 cm/s dCCA (R) 66.30/15.00 cm/s dCCA (L) 67.40/13.90 cm/s pCCA (R) 48.20/9.20 cm/s pCCA (L) 47.50/10.70 cm/s Vert (R) 73.70/13.70 cm/s Vert (L) 48.10/10.70 cm/s ICA/CCA 1.50 ICA/CCA 1.20 Findings Duplex evaluation demonstrates stenosis of the right proximal internal carotid artery in the range of 20-49% with PSV <140 cm/sec, EDV <100 cm/sec, and IC/CC Ratio <4.0.Duplex evaluation demonstrates stenosis of the left proximal internal carotid artery in the range of 20-49% with PSV <140 cm/sec, EDV <100 cm/sec, and IC/CC Ratio <4.0.Antegrade flow seen bilateral vertebral arteries.No significant change from exam of 06/16/19 Conclusion Duplex evaluation demonstrates stenosis of the right proximal internal carotid artery in the range of 20-49% with PSV <140 cm/sec, EDV <100 cm/sec, and IC/CC Ratio <4.0.Duplex evaluation demonstrates stenosis of the left proximal internal carotid artery in the range of 20-49% with PSV <140 cm/sec, EDV <100 cm/sec, and IC/CC Ratio <4.0.Antegrade flow seen bilateral vertebral arteries.No significant change from exam of 06/16/19 Electronically signed by : Samm Guzman MD 08/01/2020 17:25:10
== END ==
PROVIDERS: PCP Family Medicine; Visit Provider Urology
DX: E11.9 Type 2 diabetes mellitus without complications (principal); E78.5 Hyperlipidemia, unspecified; I10 Essential (primary) hypertension; I25.10 Atherosclerotic heart disease of native coronary artery without angina pectoris; I27.20 Pulmonary hypertension, unspecified; I34.0 Nonrheumatic mitral (valve) insufficiency; I67.2 Cerebral atherosclerosis; R09.89 Other specified symptoms and signs involving the circulatory and respiratory systems; Z79.84 Long term (current) use of oral hypoglycemic drugs
CPT/HCPCS: 93880

== ENCOUNTER → 2020-08-29 08:33 | Outpatient (CLI) | payer MEDICARE, SELFPAY ==
--- NOTE | 2020-08-29 08:36 | MM_ITS ---
PROCEDURE: MM DIG SCREENING MAMM BI W/CAD Digital Breast Tomosynthesis Included CLINICAL INDICATION: SCREENING There has been a previous biopsy left breast for benign disease. COMPARISON: MG DMSB DIG MAMM-SCREEN JOSE F from 05/21/2016 MG SCBI MM Dig screening mamm BI w/CAD from 07/23/2018 MG MM DIG SCREENING MAMM BI W/CAD from 08/26/2019 TECHNIQUE: Standard CC and MLO images and 3D Tomosynthesis was obtained. R2 CAD reviewed. FINDINGS: Mild diffuse scattered fibroglandular densities are seen throughout each breast. There are scattered benign-appearing calcifications in each breast. There is no suspicious lesion in either breast and no suspicious microcalcifications. IMPRESSION: Fibrofatty parenchyma with no suspicious lesions seen BI-RAD Category: 2 Benign Finding(s) FOLLOW-UP: 1YR 1 Year Follow-up (A letter has been sent to the patient regarding results of the study.) Dictated by: Dr. Ezekiel Whitman MD 09/01/2020 08:45 Dr. Ezekiel Whitman MD in [place] 09/01/2020 08:45
== END ==
PROVIDERS: PCP Family Medicine; Visit Provider Family Medicine
DX: Z12.31 Encounter for screening mammogram for malignant neoplasm of breast (principal)
CPT/HCPCS: 77063; 77067

== ENCOUNTER → 2020-09-12 09:14 | Outpatient (CLI) | payer MEDICARE, SELFPAY ==
--- NOTE | 2020-09-12 09:18 | XR_ITS ---
PROCEDURE: XR ANKLE WT BEARING RT MIN 3V CLINICAL INDICATION: ankle pain Pain and swelling medially COMPARISON: No exams were available for comparison FINDINGS: There is a lucency at the tip of the medial malleolus and could represent an old avulsion fracture or ununited ossification center. A tiny calcific density is present at the tip of the lateral malleolus . Bony hypertrophy is present at the distal tibia anteriorly. IMPRESSION: Calcific densities at the tip of the medial malleolus and could be due to an old avulsion fracture or ununited ossification center. Tiny calcific density at the tip of the lateral malleolus which could also be due to an old avulsion fracture or periarticular soft tissue calcification Dictated by: Samm Guzman MD 09/13/2020 05:31 Samm Guzman MD in [place] 09/13/2020 05:31
== END ==
PROVIDERS: PCP Family Medicine; Visit Provider Nurse Practitioner
DX: M25.571 Pain in right ankle and joints of right foot (principal)
CPT/HCPCS: 73610

== ENCOUNTER → 2020-09-18 08:09 | Outpatient (POV) | payer MEDICARE, SELFPAY | PROVIDERS: Visit Provider Dermatology | DX: Z00.00 Encounter for general adult medical examination without abnormal findings (principal) ==

== ENCOUNTER → 2021-01-08 07:38 | Outpatient (CLI) | payer MEDICARE, SELFPAY ==
[2021-01-08 08:18] LABS: Basophils # 0.1 K/mm3 (0-0.2); Basophils % 0.9 % (0.1-2.0); Eosinophils # 0.1 K/mm3 (0.0-0.4); Eosinophils % 2.6 % (0.1-12.0); Hematocrit 38.8 % (37.0-47.0); Hemoglobin 12.6 g/dL (12.2-16.2); Lymphocytes % 18.4 % (10-50); Mean Corpuscular HGB Conc 32.6 g/dL (31.8-35.4); Mean Corpuscular Hemoglobin 29.4 pg (27.0-31.2); Monocytes # 0.4 K/mm3 (0.1-1.0); Neutrophils # 3.6 K/mm3 (1.8-7.8); Neutrophils % 70.1 % (37.0-80.0); Platelet Count 207 K/mm3 (142-424); Red Blood Count 4.31 M/mm3 (4.20-5.40); Red Cell Distribution Width 13.5 % (11.5-17.5); White Blood Count 5.1 K/mm3 (4.8-10.8)
[2021-01-08 08:25] LABS: Hemoglobin A1C 6.6 % (4.0-6.0)
[2021-01-08 08:26] LABS: Creatinine,Urine Random 62 mg/dL (Not Estab.)
[2021-01-08 08:27] LABS: Chloride 102 mmol/L (98-107); Potassium 4.1 mmoL/L (3.5-5.1); Sodium 141 mmol/L (136-145)
[2021-01-08 08:29] LABS: Blood Urea Nitrogen 15 mg/dl (7-17); Estimated Glomerular Filt Rate 82 ml/min (>60); GFR (African American) 100 ML/MIN (>60)
[2021-01-08 08:30] LABS: Alanine Aminotransferase 19 U/L (12-78); Albumin Level 4.2 g/dl (3.5-5.0); Albumin/Globulin Ratio 1.8 (1.1-1.8); Alkaline Phosphatase 45 U/L (38-126); Anion Gap 12.1 mEq/L (5-15); Aspartate Amino Transferase 24 U/L (14-36); Bilirubin,Total 0.4 mg/dl (0.2-1.3); Calcium 9.7 mg/dl (8.4-10.2); Carbon Dioxide 31 mmol/L (22.0-30.0); Cholesterol 126 mg/dl (140-200); Globulin 2.3 g/dL (1.3-3.2); Glucose 144 mg/dl (74-100); Iron 61 ug/dL (37-170); Microalbumin/Creatinine Ratio 85.9; Total Protein,Serum 6.5 g/dl (6.3-8.2); Triglycerides 70 mg/dl (30-150); VLDL Cholesterol 14 mg/dL (0-40)
[2021-01-08 08:31] LABS: Chol/HDL Ratio 3.2 (1-3.5); HDL Cholesterol 39 mg/dl (40-60)
[2021-01-08 08:41] LABS: Direct LDL Cholesterol 70.06 mg/dL (100-129)
== END ==
PROVIDERS: Visit Provider Family Medicine
DX: I10 Essential (primary) hypertension (principal); E03.9 Hypothyroidism, unspecified; E78.5 Hyperlipidemia, unspecified; D64.9 Anemia, unspecified; E11.9 Type 2 diabetes mellitus without complications; Z79.84 Long term (current) use of oral hypoglycemic drugs
CPT/HCPCS: 36415; 80053; 80061; 82043; 82570; 83036; 83540; 84443; 85025

== ENCOUNTER → 2021-02-01 08:58 | Outpatient (CLI) | payer MEDICARE, SELFPAY ==
--- NOTE | 2021-02-01 09:02 | XR_ITS ---
PROCEDURE: XR DEXA AXIAL SKELETON CLINICAL HISTORY: POST MENOPAUSAL COMPARISON: CR DEXAAX XR DEXA axial skeleton from 01/28/2019 FINDINGS: The right hip BMD is 1.015 with a T-score of 1.5. The left hip BMD is 1.004 with a T-score of 1.4. The lumbar spine BMD is 1.100 with a T-score of 0.5. IMPRESSION: This patient is considered normal according to the World Health Organization criteria. Fracture risk is low. Based on these results a follow-up exam is recommended in 2 year. Dictated by: Samm Guzman MD 02/02/2021 09:03 Samm Guzman MD in [place] 02/02/2021 09:03
== END ==
PROVIDERS: PCP Family Medicine; Visit Provider Family Medicine
DX: Z78.0 Asymptomatic menopausal state (principal)
CPT/HCPCS: 77080

== ENCOUNTER → 2021-02-28 10:10 | Outpatient (CLI) | payer MEDICARE, SELFPAY ==
--- NOTE | 2021-02-28 10:11 | CA_ITS ---
APPROVED REPORT Refuse Collector: WINSTON Laterality: Bilateral Study Quality: Good Indications: IVANNA Doppler Spectral Velocity Analysis ECA (R) 124.10/5.50 cm/s dICA (L) 79.20/18.90 cm/s Miguel A (L) 85.50/17.60 cm/s dICA (R) 89.00/22.10 cm/s pICA (L) 81.20/12.70 cm/s Miguel A (R) 95.70/19.40 cm/s pICA (R) 80.00/13.70 cm/s dCCA (L) 63.80/12.80 cm/s pCCA (L) 59.70/8.50 cm/s dCCA (R) 63.60/15.40 cm/s pCCA (R) 43.70/7.70 cm/s Vert (L) 40.90/8.20 cm/s Vert (R) 41.20/8.00 cm/s ICA/CCA 1.30 ICA/CCA 1.50 Findings Duplex evaluation demonstrates stenosis of the right proximal internal carotid artery in the range of 20-49% with PSV <140 cm/sec, EDV <100 cm/sec, and IC/CC Ratio <4.0.Duplex evaluation demonstrates stenosis of the left proximal internal carotid artery in the range of 20-49% with PSV <140 cm/sec, EDV <100 cm/sec, and IC/CC Ratio <4.0.Antegrade flow seen bilateral vertebral arteries. No significant change from exam of 08/01/2020 Conclusion Duplex evaluation demonstrates stenosis of the right proximal internal carotid artery in the range of 20-49% with PSV <140 cm/sec, EDV <100 cm/sec, and IC/CC Ratio <4.0.Duplex evaluation demonstrates stenosis of the left proximal internal carotid artery in the range of 20-49% with PSV <140 cm/sec, EDV <100 cm/sec, and IC/CC Ratio <4.0.Antegrade flow seen bilateral vertebral arteries. No significant change from exam of 08/01/2020 Electronically signed by : Samm Guzman MD 02/28/2021 15:56:49
== END ==
PROVIDERS: PCP Family Medicine; Visit Provider Urology
DX: I77.9 Disorder of arteries and arterioles, unspecified (principal); R09.89 Other specified symptoms and signs involving the circulatory and respiratory systems
CPT/HCPCS: 93880

== ENCOUNTER → 2021-05-16 10:00 | Outpatient (POV) | payer MEDICARE, SELFPAY | PROVIDERS: Visit Provider Audiologist | DX: Z00.00 Encounter for general adult medical examination without abnormal findings (principal) ==

== ENCOUNTER 2021-06-02 15:55 | Emergency (ER) | payer MEDICARE, SELFPAY ==
[2021-06-02 17:40] VITALS: BP 157/53; PULSE 67; RESP 18; TEMP 37; O2SAT 96; BMI 25.7
--- NOTE | 2021-06-02 18:13 | HMH.EDUTC ---
[facility] [place] Clinical Impression: COVID-19 virus test result unknown Acute bronchitis Qualifiers: Bronchitis organism: unspecified organism Qualified Code(s): J20.9 - Acute bronchitis, unspecified Disposition: Home, Self-Care Condition on Discharge: Good Instructions: DI for COVID-19 (Suspected or Confirmed ), Acute Bronchitis Additional Instructions: covid swab was sent to lab, call later today for results. self isolate until test results are known to be negative Tylenol and ibuprofen as needed for pain or fever Humidifier/vaporizer/hot steamy shower Follow-up with primary care tomorrow. Follow-up immediately in the ER of the [facility] for new or worsening symptoms or no noticeable improvement over the next 48-72 hours. Stop smoking Inhaler every 4-6 hours as needed. Should help open airways improved cough, wheezing, shortness of breath Lei Orellana will not cause drowsiness to use at bedtime to help stop cough so that she can get some sleep Start steroids today. watch glucose close while on steroids Helps with inflammation therefore coughing and wheezing. Follow directions on package. Prescriptions: predniSONE [Prednisone 10mg Tab Dose-Pack] 10 mg PO BID 5 Days #10 pack Transmission Status: Pending to [id number] Referrals: Ramos Betts MD [Primary Care Provider] - Time of Disposition: 18:19 Medical Decision Making - Gagan Inquiry Pt receiving controlled substance: No Vital Signs: 06/02/21 17:40 Temperature 98.6 F Temperature Source Oral Pulse Rate [Right Brachial] 67 Respiratory Rate 18 Blood Pressure [Right Arm] 157/53 H Blood Pressure Mean [Right Arm] 87 Blood Pressure Source [Right Arm] Automatic Cuff Blood Pressure Position [Right Arm] Sitting 02 Sat by Pulse Oximetry 96 Oxygen Delivery Method Room Air [facility] [place] - General Chief complaint: Ur[facility] Stated complaint: sore throat,cough, runny nose Time Seen by Provider: 06/02/21 18:13 Mode of Arrival: Ambulatory Source of Information: Patient Limitations: No Limitations Description of Symptoms (Recalled from Triage Doc. by RN): PATIENT C/O COUGH, SORE THROAT, HEADACHE, RUNNY NOSE, LOW-GRADE FEVER AND WEAKNESS THAT STARTED LAST NIGHT HEENT Symptoms (Recalled from RN notes): Yes Resp Symptoms (Recalled from RN notes): Yes Skin Symptoms (Recalled from RN notes): No MS Symptoms (Recalled from RN notes): No Functional Status (Recalled from RN notes): WNL - History of Present Illness Provider Complaint: 70 yr old female presents for cough,sore throat,headache,runny nose,wheezing,low grade fever and weakness since last night - Related Data Home Medications Medication Instructions Recorded Confirmed albuterol sulfate 90 mcg/actuation 1 puff INHALATION DAILY 25 Days 06/07/18 05/09/21 aerosol inhaler Aspirin [Aspirin 81mg chewable 81 mg PO DAILY 02/14/19 05/09/21 tab] budesonide-formoterol HFA 160 1 puff INHALATION DAILY g 06/28/19 05/09/21 mcg-4.5 mcg/actuation aerosol inhaler metformin 1,000 mg tablet 2,000 mg PO DAILY 90 Days #180 tab 07/04/19 05/09/21 montelukast 10 mg tablet 10 mg PO DAILY 90 Days #90 tab 07/04/19 05/09/21 omega-3 fatty acids 1,000 mg 1,000 mg PO BID cap 07/04/19 05/09/21 capsule omeprazole 40 mg capsule,delayed 40 mg PO DAILY 90 Days #90 cap 07/04/19 05/09/21 release diltiazem HCl 120 mg 120 mg PO BID 90 Days #180 cap 07/25/19 05/09/21 capsule,extended release 24 hr Losartan/Hydrochlorothiazide 1 tab PO DAILY 08/22/19 05/09/21 [Hyzaar 100-25 Tablet] Rosuvastatin Calcium 5 mg PO DAILY 08/22/19 05/09/21 doxazosin 8 mg tablet 8 mg PO DAILY 06/13/20 05/09/21 furosemide 20 mg tablet 20 mg PO .three times weekly tab 02/25/21 05/09/21 paroxetine HCl 40 mg tablet 40 mg PO DAILY tab 02/25/21 05/09/21 primidone 50 mg tablet 100 mg PO DIRECTED tab 02/25/21 05/09/21 Previous Rx's Medication Instructions Recorded diclofenac sodium 1 % topical gel 4 g
[2021-06-02 18:20] VITALS: BP 157/53; PULSE 67; RESP 18; TEMP 37; O2SAT 96
--- NOTE | 2021-06-02 22:41 | PC.NURSE ---
ATTEMPTED TO CALL PATIENT REGARDING COVID TEST RESULT WITH NO ANSWER
--- NOTE | 2021-06-03 09:24 | PC.NURSE ---
Attempted to call pt to inform of positive COVID results. No answer. Message left requesting a return call.
== END 2021-06-02 18:23 | disposition home or self-care (01) ==
PROVIDERS: Emergency Provider Nurse Practitioner Family; PCP Family Medicine
DX: U07.1 COVID-19 (principal); J20.9 Acute bronchitis, unspecified
CPT/HCPCS: 99203; G0463; U0003

== ENCOUNTER → 2021-07-09 10:02 | Outpatient (CLI) | payer MEDICARE, SELFPAY | PROVIDERS: PCP Family Medicine; Visit Provider Nurse Practitioner | DX: Z20.822 Contact with and (suspected) exposure to COVID-19 (principal) | CPT/HCPCS: C9803; U0003; U0005 ==

== ENCOUNTER → 2021-07-15 08:47 | Outpatient (CLI) | payer MEDICARE, SELFPAY ==
[2021-07-15 09:37] LABS: Chloride 100 mmol/L (98-107); Potassium 4.3 mmoL/L (3.5-5.1); Sodium 142 mmol/L (136-145)
[2021-07-15 09:40] LABS: Alanine Aminotransferase 18 U/L (12-78); Albumin Level 3.9 g/dl (3.5-5.0); Albumin/Globulin Ratio 1.5 (1.1-1.8); Alkaline Phosphatase 60 U/L (38-126); Anion Gap 12.3 mEq/L (5-15); Aspartate Amino Transferase 24 U/L (14-36); Bilirubin,Total 0.2 mg/dl (0.2-1.3); Blood Urea Nitrogen 11 mg/dl (7-17); Carbon Dioxide 34 mmol/L (22.0-30.0); Cholesterol 134 mg/dl (140-200); Estimated Glomerular Filt Rate 82 ml/min (>60); GFR (African American) 100 ML/MIN (>60); Globulin 2.6 g/dL (1.3-3.2); Total Protein,Serum 6.5 g/dl (6.3-8.2); Triglycerides 81 mg/dl (30-150); VLDL Cholesterol 16 mg/dL (0-40)
[2021-07-15 09:41] LABS: Calcium 9.7 mg/dl (8.4-10.2); Chol/HDL Ratio 2.9 (1-3.5); Glucose 155 mg/dl (74-100); HDL Cholesterol 46 mg/dl (40-60)
[2021-07-15 09:51] LABS: Direct LDL Cholesterol 69.97 mg/dL (100-129)
[2021-07-15 10:12] LABS: Thyroid Stimulating Hormone 2.51 uIU/mL (0.465-4.68)
[2021-07-15 11:58] LABS: Hemoglobin A1C 7.3 % (4.0-6.0)
== END ==
PROVIDERS: Visit Provider Family Medicine
DX: I10 Essential (primary) hypertension (principal); E03.9 Hypothyroidism, unspecified; E78.5 Hyperlipidemia, unspecified; E11.51 Type 2 diabetes mellitus with diabetic peripheral angiopathy without gangrene; Z79.84 Long term (current) use of oral hypoglycemic drugs
CPT/HCPCS: 36415; 80053; 80061; 83036; 84443

== ENCOUNTER → 2021-11-11 08:59 | Outpatient (CLI) | payer MEDICARE, SELFPAY ==
--- NOTE | 2021-11-11 09:00 | MR_ITS ---
FINAL REPORT CLINICAL HISTORY: known cervical spondylosis w/ myelopathy. neck pain. weakness bilateral legs. rt arm pain. headache. COMPARISON: 09/09/2018 FINDINGS: Multiplanar MR imaging of the cervical spine was performed without contrast. On the sagittal T2-weighted images, disc degeneration is seen throughout. There is straightening of the cervical spine. There is no evidence of fracture. The vertebral alignment is normal. The cervical spinal cord has an unremarkable appearance without evidence of mass, edema or syrinx. The cervicomedullary junction is normal. C2-3: There is an annular disc bulge without significant canal stenosis or neural foraminal narrowing. C3-4: There are uncovertebral osteophytes with moderate right neuroforaminal narrowing. C4-5: Disc osteophyte complex with severe right and moderate left neuroforaminal narrowing. There is mild central canal stenosis with AP diameter of the thecal sac measuring 8 mm. C5-6: Disc osteophyte complex with severe left neuroforaminal narrowing. There is mild central canal stenosis with AP diameter of the thecal sac measuring 8 mm. C6-7: Disc osteophyte complex with right foraminal disc protrusion and moderate bilateral neuroforaminal narrowing. C7-T1: Disc osteophyte complex with right foraminal disc protrusion and mild right neuroforaminal narrowing. IMPRESSION: Multilevel degenerative disc disease, stable from prior exam, with mild central canal stenosis at C4-5 and C5-6. Reviewed, Interpreted and Dictated by Joni Gasca III, MD Transcribed by Kelly Dillon Authenticated by Joni Gasca III, MD on 11/11/2021 12:35:05 PM [facility]
== END ==
PROVIDERS: PCP Family Medicine; Visit Provider Nurse Practitioner Family
DX: M47.12 Other spondylosis with myelopathy, cervical region (principal); R29.2 Abnormal reflex; R29.898 Other symptoms and signs involving the musculoskeletal system
CPT/HCPCS: 72141; 76376

== ENCOUNTER 2021-12-19 14:00 | Outpatient (RCR) | payer MEDICARE, SELFPAY ==
--- NOTE | 2021-11-22 08:53 | HMH.PTOPEV ---
PT Outpatient Evaluation Rehab PT Outpatient Evaluation Start: 11/22/21 08:34 Freq: Status: Active Protocol: Document 11/22/21 08:35 INDRA (Rec: 11/22/21 08:53 INDRA [id number]) Electronically Signed By Benny Hanley, PT 11/22/21 08:35 Outpatient Therapy Subjective History Subjective History Patient is a 71 year old female presenting to outpatient PT with reports of chronic cervical spine pain with BUE radicular symptoms to C5 dermatomes. Symptoms have progressively gotten worse over the past 4 years. Patient was also referred to PT for balance issues. Patient reports 2 falls over the past 6 months secondary to BLE weakness. Most recent imaging indicates cervical DDD /spondylosis. Previous relief with chiro. Balance issue have been present for approx 2 years. Patient reports diabetic neuropathy to BLE. Other comorbidities include hx of sacral fracture, essential tremor, HTN, HL and diabetes. Chief Complaint Pain,Stiff,Paresthesia, Weakness Symptom Type Ache,Sharp,Burning,Numbness, Tingling Symptoms Relieved By Rest/Positioning Symptoms Aggravated By Standing,Physical Activity, Walking,Lifting Prior Functional Limitations Lifting,Standing,Walking Current Functional Limitations Lifting,Housework,Standing, Walking,Stairs,Balance Symptom Description Constant but Variable Level of pain today (0-10) 3 Pain scale - at its best (0-10) 2 Pain scale - at its worst (0-10) 7 Cervical Eval Palpation Cervical Muscles R Cervical Paraspinal,L Cervical Paraspinal,R Suboccipital,L Suboccipital,R CT Junction,L CT Junction,R Upper Trapezius,L Upper Trapezius Cervical/Thoracic Palpation Findings Tenderness Posture Head/C-Spine Posture Sitting Position C-Spine Flattened Head/C-Spine Posture Standing Position C-Spine Flattened Flexibility Deficits Upper Trapezius Muscle Length (R) Moderate Tightness,(L) Moderate Tightness Mignon
== END 2021-12-19 14:05 | disposition home or self-care (01) ==
LOC: PT 14:00
PROVIDERS: PCP Family Medicine; Visit Provider Nurse Practitioner Family
DX: M47.812 Spondylosis without myelopathy or radiculopathy, cervical region (principal); R26.89 Other abnormalities of gait and mobility
CPT/HCPCS: 97010; 97014; 97035; 97110; 97112; 97140; 97163; G0283

== ENCOUNTER → 2022-01-22 08:30 | Outpatient (CLI) | payer MEDICARE, SELFPAY ==
[2022-01-22 09:14] LABS: Basophils # 0.1 K/mm3 (0-0.2); Basophils % 2.5 % (0.1-2.0); Eosinophils # 0.2 K/mm3 (0.0-0.4); Eosinophils % 4.1 % (0.1-12.0); Hemoglobin 13.2 g/dL (12.2-16.2); Lymphocytes # 0.9 K/mm3 (0.7-4.5); Lymphocytes % 20.3 % (10-50); Mean Corpuscular HGB Conc 33.8 g/dL (31.8-35.4); Mean Corpuscular Hemoglobin 29.9 pg (27.0-31.2); Mean Corpuscular Volume 88.7 fl (81-99); Mean Platelet Volume 7.9 fl (7.4-10.4); Monocytes # 0.4 K/mm3 (0.1-1.0); Monocytes % 7.7 % (1.7-9.3); Neutrophils % 65.4 % (37.0-80.0); Platelet Count 197 K/mm3 (142-424); Red Cell Distribution Width 13.6 % (11.5-17.5); White Blood Count 4.6 K/mm3 (4.8-10.8)
[2022-01-22 09:52] LABS: Hemoglobin A1C 7.4 % (4.0-6.0)
[2022-01-22 10:21] LABS: Alanine Aminotransferase 17 U/L (12-78); Albumin/Globulin Ratio 1.7 (1.1-1.8); Alkaline Phosphatase 44 U/L (38-126); Anion Gap 11.1 mEq/L (5-15); Aspartate Amino Transferase 21 U/L (14-36); Bilirubin,Total 0.4 mg/dl (0.2-1.3); Blood Urea Nitrogen 11 mg/dl (7-17); Calcium 8.9 mg/dl (8.4-10.2); Carbon Dioxide 33 mmol/L (22.0-30.0); Chloride 99 mmol/L (98-107); Chol/HDL Ratio 3.5 (1-3.5); Cholesterol 135 mg/dl (140-200); Estimated Glomerular Filt Rate 98 ml/min (>60); GFR (African American) 119 ML/MIN (>60); Globulin 2.4 g/dL (1.3-3.2); Glucose 152 mg/dl (74-100); HDL Cholesterol 39 mg/dl (40-60); Potassium 3.1 mmoL/L (3.5-5.1); Sodium 140 mmol/L (136-145); Total Protein,Serum 6.4 g/dl (6.3-8.2); Triglycerides 148 mg/dl (30-150); VLDL Cholesterol 30 mg/dL (0-40)
[2022-01-22 10:32] LABS: Direct LDL Cholesterol 65.72 mg/dL (100-129)
[2022-01-22 10:51] LABS: Thyroid Stimulating Hormone 3.99 uIU/mL (0.465-4.68)
== END ==
PROVIDERS: Visit Provider Family Medicine
DX: I10 Essential (primary) hypertension (principal); D50.9 Iron deficiency anemia, unspecified; E11.9 Type 2 diabetes mellitus without complications; E78.5 Hyperlipidemia, unspecified; E03.9 Hypothyroidism, unspecified; Z79.84 Long term (current) use of oral hypoglycemic drugs
CPT/HCPCS: 36415; 80053; 80061; 83036; 84443; 85025

== ENCOUNTER → 2022-01-28 14:47 | Outpatient (CLI) | payer MEDICARE, SELFPAY ==
[2022-01-28 17:46] LABS: Vitamin B12 402 pg/mL (239-931)
[2022-01-28 17:53] LABS: Folate 7.87 ng/mL
== END ==
PROVIDERS: Visit Provider Nurse Practitioner Family
DX: G62.9 Polyneuropathy, unspecified (principal); R25.1 Tremor, unspecified; R26.89 Other abnormalities of gait and mobility
CPT/HCPCS: 36415; 82607; 82746

== ENCOUNTER 2022-02-01 09:17 | Emergency (ER) | payer MEDICARE, SELFPAY ==
[2022-02-01] VITALS (14 sets, daily range): BP systolic 135–196; BP diastolic 57–77; PULSE 60–87; RESP 12–22; TEMP 36.6; O2SAT 92–99; BMI 27.7
[2022-02-01 09:31] LABS: POC Glucose,Bedside 233 (70-110)
--- NOTE | 2022-02-01 09:37 | XR_ITS ---
PROCEDURE INFORMATION: Exam: XR Chest Exam date and time: 02/01/2022 9:42 AM Age: 71 years old Clinical indication: Shortness of breath; Patient HX: Near syncope; Additional info: SOB TECHNIQUE: Imaging protocol: XR of the chest. Views: 1 view. COMPARISON: CR XR CHEST 2V 04/08/2020 2:37 PM FINDINGS: Lungs: Unremarkable. No consolidation. Pleural spaces: Unremarkable. No pleural effusion. No pneumothorax. Heart/Mediastinum: Unremarkable. No cardiomegaly. Bones/joints: Unremarkable. IMPRESSION: No acute findings.
--- NOTE | 2022-02-01 09:50 | ECG_ITS ---
APPROVED REPORT Exam: Resting ECG HR:67 bpm ECG Measurements Heart Rate 67 AXES NM 151 P 8 QRSd 95 QRS -18 QT 395 T 95 QTc 410 Conclusion SINUS RHYTHM LEFT VENTRICULAR HYPERTROPHY AND ST-T CHANGE [VOLTAGE CRITERIA PLUS ST/T ABNORMALITY] ABNORMAL ECG UNCONFIRMED REPORT Electronically signed by : Travis Mccormick MD 02/02/2022 15:12:20
[2022-02-01 09:57] LABS: Basophils # 0.1 K/mm3 (0-0.2); Basophils % 1.6 % (0.1-2.0); Eosinophils # 0.2 K/mm3 (0.0-0.4); Eosinophils % 3.1 % (0.1-12.0); Hematocrit 38.2 % (37.0-47.0); Hemoglobin 12.9 g/dL (12.2-16.2); Lymphocytes % 20.6 % (10-50); Mean Corpuscular HGB Conc 33.8 g/dL (31.8-35.4); Mean Corpuscular Hemoglobin 30.3 pg (27.0-31.2); Mean Corpuscular Volume 89.5 fl (81-99); Mean Platelet Volume 8.3 fl (7.4-10.4); Monocytes # 0.3 K/mm3 (0.1-1.0); Monocytes % 6.9 % (1.7-9.3); Neutrophils # 3.2 K/mm3 (1.8-7.8); Neutrophils % 67.8 % (37.0-80.0); Platelet Count 234 K/mm3 (142-424); Red Blood Count 4.27 M/mm3 (4.20-5.40); Red Cell Distribution Width 13.6 % (11.5-17.5); White Blood Count 4.7 K/mm3 (4.8-10.8)
--- NOTE | 2022-02-01 10:00 | PC.NURSE ---
PT RESTING FAMILY AT BEDSIDE
[2022-02-01 10:01] LABS: Alanine Aminotransferase 20 U/L (12-78); Albumin Level 4.2 g/dl (3.5-5.0); Albumin/Globulin Ratio 1.6 (1.1-1.8); Alkaline Phosphatase 47 U/L (38-126); Anion Gap 14.3 mEq/L (5-15); Aspartate Amino Transferase 28 U/L (14-36); Bilirubin,Total 0.4 mg/dl (0.2-1.3); Blood Urea Nitrogen 11 mg/dl (7-17); Calcium 9.3 mg/dl (8.4-10.2); Carbon Dioxide 26 mmol/L (22.0-30.0); Chloride 101 mmol/L (98-107); Creatinine Clearance Estimated 63 mL/min (50-200); Estimated Glomerular Filt Rate 82 ml/min (>60); GFR (African American) 100 ML/MIN (>60); Globulin 2.6 g/dL (1.3-3.2); Glucose 231 mg/dl (74-100); Potassium 3.3 mmoL/L (3.5-5.1); Sodium 138 mmol/L (136-145); Total Protein,Serum 6.8 g/dl (6.3-8.2)
[2022-02-01 10:04] LABS: Lactic Acid 3.4 mmol/L (0.7-2.1)
[2022-02-01 10:10] LABS: NT Pro Brain Natriuretic Pep. 827 pg/mL (0-125)
[2022-02-01 10:13] LABS: Troponin I < 0.01 ng/ml (0.00-0.034)
[2022-02-01 10:20] LABS: Acetone, Serum (Rapid) None Detected (None Detect)
--- NOTE | 2022-02-01 12:00 | PC.NURSE ---
PT AND FAMILY UPDATED ON PLAN OF CARE
[2022-02-01 13:21] LABS: Microscopic, Urine URINE MICROSCOPIC (MICROSCOPIC)
--- NOTE | 2022-02-01 13:34 | HMH.EDGENADL ---
ED Disposition Clinical Impression: UTI (urinary tract infection) Qualifiers: Urinary tract infection type: site unspecified Hematuria presence: with hematuria Qualified Code(s): N39.0 - Urinary tract infection, site not specified; R31.9 - Hematuria, unspecified Disposition: Home, Self-Care Condition on Discharge: Fair Additional Instructions: Please follow-up with your primary care physician for urinary tract infection seen in the emergency department and for elevated BNP, as you may need a diuretic in the future. Please return to the emergency department with any new or worsening symptoms including chest pain, shortness of breath, fainting or any other concerning symptoms. Prescriptions: Cefdinir [Omnicef 300mg Capsule] 300 mg PO BID #20 cap Transmission Status: Pending to [facility] Referrals: Ramos Betts MD [Primary Care Provider] - - Critical Care Critical Care Time: No Attestation: On 02/01/22, the high probability of a clinically significant, sudden or life threatening deterioration of the following system(s) required my full and direct attention, intervention and personal management. The time I documented below is in addition to time spent performing reported procedures but includes the following listed in this critical care notation. Medical Decision Making - Gagan Inquiry Pt receiving controlled substance: No Vital Signs: 02/01/22 09:30 02/01/22 10:00 02/01/22 10:30 Pulse Rate 68 72 62 Respiratory Rate 19 14 12 Blood Pressure 152/75 H 160/69 H 167/74 H Blood Pressure Mean 91 98 105 02 Sat by Pulse Oximetry 99 98 98 02/01/22 11:00 02/01/22 12:15 02/01/22 12:30 Pulse Rate 69 71 60 Respiratory Rate 22 14 20 Blood Pressure 171/70 H 179/77 H 167/67 H Blood Pressure Mean 97 101 100 02 Sat by Pulse Oximetry 95 92 L 93 L 02/01/22 13:00 02/01/22 13:30 02/01/22 14:01 Pulse Rate 66 64 60 Respiratory Rate 18 12 12 Blood Pressure 154/68 H 157/57 H 179/68 H Blood Pressure Mean 96 90 92 02 Sat by Pulse Oximetry 97 95 98 - Lab Data Lab Results 02/01/22 09:24: POC Glucose 233 H 02/01/22 09:30: WBC 4.7 L, RBC 4.27, Hgb 12.9, Hct 38.2, MCV 89.5, MCH 30.3, MCHC 33.8, RDW 13.6, Plt Count 234, MPV 8.3, Neut % (Auto) 67.8, Lymph % (Auto) 20.6, [place] % (Auto) 6.9, Eos % (Auto) 3.1, Baso % (Auto) 1.6, Neut # (Auto) 3.2, Lymph # (Auto) 1.0, [place] # (Auto) 0.3, Eos # (Auto) 0.2, Baso # (Auto) 0.1 02/01/22 09:30: Sodium 138, Potassium 3.3 L, Chloride 101, Carbon Dioxide 26, Anion Gap 14.3, BUN 11, Creatinine 0.70, Estimated Creat Clear 63, Estimated GFR 82, Est GFR ( Amer) 100, Glucose 231 H, Calcium 9.3, Total Bilirubin 0.4, AST 28, ALT 20, Alkaline Phosphatase 47, Troponin I < 0.01, Total Protein 6.8, Albumin 4.2, Globulin 2.6, Albumin/Globulin Ratio 1.6 02/01/22 09:30: Acetone Level None detected 02/01/22 09:30: Lactate 3.4 H 02/01/22 09:30: NT-Pro-B Natriuret Pep 827 H 02/01/22 11:20: Urine Color Yellow, Urine Appearance Slightly cloudy, Urine pH 7.0, Ur Specific [place] 1.010, Urine Protein Negative, Urine Glucose (UA) Negative, Urine Ketones Negative, Urine Blood 1+, Urine Nitrate Positive, Urine Bilirubin Negative, Urine Urobilinogen 0.2, Ur Leukocyte Esterase 3+ A, Urine RBC 3-5, Urine WBC 5-10, Ur Squamous Epith Cells Occasional, Amorphous Sediment 1+, Urine Bacteria 3+ 02/01/22 12:27: Troponin I < 0.01 02/01/22 13:51: Specimen Source Left radial, O2 % Ra, ABG pH 7.43, ABG pCO2 37.3, ABG pO2 79.0 L, ABG HCO3 24.0, ABG Total CO2 25.2, ABG O2 Saturation 95, ABG Base Excess -0.3, Samm Test Acceptable 02/01/22 14:27: Lactate 2.5 H Result diagrams: 02/01/22 09:30 02/01/22 09:30 Orders (Tests/Meds): ED MEDICATIONS Discontinued Medications Generic Name Dose Route Start Last Admin Trade Name Freq PRN Reason Stop Dose Admin Acetaminophen 1,000 mg 02/01/22 12:16 02/01/22 12:10 Acetaminophen 500mg Tab PO 02/01/22 12:17 1,000 mg ONCE ONE Administratio
[2022-02-01 13:35] LABS: Bilirubin,Urine Negative (Negative); Blood, Urine 1+ (Negative); Color,Urine YELLOW (Yellow); Glucose,Urine (UA) Negative (Negative); Ketones,Urine Negative (Negative); Leukocyte Esterase,Urine 3+ (Negative); Nitrate,Urine POSITIVE (Negative); Protein,Urine Negative (Negative); Urobilinogen,Urine 0.2 EU/dl (0.2)
[2022-02-01 13:41] LABS: Troponin I < 0.01 ng/ml (0.00-0.034)
[2022-02-01 13:42] LABS: Appearance,Urine Slightly Cloudy (Clear)
[2022-02-01 13:43] LABS: Reflex Lactic Add Lactic Reflex
[2022-02-01 13:54] LABS: Amorphous Sediment,Urine 1+ /lpf; Bacteria,Urine 3+ /lpf; Squamous Epithelial Cell,Urine Occasional #/hpf (0-5)
--- NOTE | 2022-02-01 14:00 | PC.NURSE ---
UPDATED ON PLAN OF CARE
[2022-02-01 14:05] LABS: ABG Base Excess -0.3 mmol/L (-2.4-2.3); ABG Oxygen Saturation 95 % (90-100); ABG PCO2 37.3 mmhg (35.0-45.0); ABG PH 7.43 mmol/L (7.35-7.45); ABG TCO2 25.2 mmhg (23-27)
[2022-02-01 14:06] LABS: Allen's Test Acceptable; Oxygen RA %; Source Left Radial
[2022-02-01 15:10] LABS: Lactic Acid Follow Up (RFLX 1) 2.5 mmol/L (0.7-2.1)
[2022-02-01 16:31] LABS: Reflex Lactic (2 hrs) Add Lactic Reflex
== END 2022-02-01 16:00 | disposition home or self-care (01) ==
PROVIDERS: Emergency Provider Student in an Organized Health Care Education/Training Program; PCP Family Medicine
DX: N39.0 Urinary tract infection, site not specified (principal); R94.31 Abnormal electrocardiogram [ECG] [EKG]; R94.39 Abnormal result of other cardiovascular function study; R06.02 Shortness of breath; R61 Generalized hyperhidrosis; R51.9 Headache, unspecified; R53.82 Chronic fatigue, unspecified; R20.2 Paresthesia of skin; I27.20 Pulmonary hypertension, unspecified; I10 Essential (primary) hypertension; I25.10 Atherosclerotic heart disease of native coronary artery without angina pectoris; I47.1 Supraventricular tachycardia; I34.0 Nonrheumatic mitral (valve) insufficiency; I48.91 Unspecified atrial fibrillation; E78.5 Hyperlipidemia, unspecified; E10.8 Type 1 diabetes mellitus with unspecified complications; N20.0 Calculus of kidney; G40.909 Epilepsy, unspecified, not intractable, without status epilepticus; Z79.51 Long term (current) use of inhaled steroids; Z79.82 Long term (current) use of aspirin; Z79.84 Long term (current) use of oral hypoglycemic drugs; Z79.899 Other long term (current) drug therapy; Z88.2 Allergy status to sulfonamides; Z91.048 Other nonmedicinal substance allergy status; Z82.49 Family history of ischemic heart disease and other diseases of the circulatory system; Z80.9 Family history of malignant neoplasm, unspecified; Z83.3 Family history of diabetes mellitus
CPT/HCPCS: 36415; 71045; 80053; 81001; 82009; 82803; 82962; 83605; 83880; 84484; 85025; 87086; 93005; 99285

== ENCOUNTER 2022-02-03 12:45 | Emergency (ER) | payer MEDICARE, SELFPAY ==
[2022-02-03] VITALS (17 sets, daily range): BP systolic 142–196; BP diastolic 56–110; PULSE 58–82; RESP 18–20; TEMP 36.7–36.9; O2SAT 89–98; BMI 26.6
--- NOTE | 2022-02-03 12:52 | PC.NURSE ---
pt brought to triage room r/t no room available in ER at this time pt reports has a headache, does not feel well, is currently being treated for UTI (taking cefdinir). Pt was in lobby states she felt like she may pass out. Pt was sitting in wheelchair. pt fsbs 161-pt reports is non-insulin dependent diabetic. bp 131/72 hr 68 SaO2 99% Temp 98.1 pt given glass of ice water per her request. Pt advised we will get pt in ER room as soon as a room is available.
[2022-02-03 13:05] LABS: POC Glucose,Bedside 161 (70-110)
--- NOTE | 2022-02-03 13:43 | PC.NURSE ---
Patient has call light within reach, friend at bedside and is hooked up to monitor. She has no needs at this time.
--- NOTE | 2022-02-03 14:00 | PC.NURSE ---
CONCEPCIÓN Guzmán at BS
--- NOTE | 2022-02-03 14:14 | ECG_ITS ---
APPROVED REPORT Exam: Resting ECG HR:61 bpm ECG Measurements Heart Rate 61 AXES [place] 167 P 23 QRSd 93 QRS -8 QT 420 T 24 QTc 424 Conclusion SINUS RHYTHM LEFT VENTRICULAR HYPERTROPHY AND ST-T CHANGE [VOLTAGE CRITERIA PLUS ST/T ABNORMALITY] Old isolated Q in III ABNORMAL ECG UNCONFIRMED REPORT Electronically signed by : Travis Mccormick MD 02/06/2022 08:09:47
[2022-02-03 14:28] LABS: Alanine Aminotransferase 25 U/L (12-78); Albumin Level 4.3 g/dl (3.5-5.0); Albumin/Globulin Ratio 1.6 (1.1-1.8); Alkaline Phosphatase 52 U/L (38-126); Anion Gap 15.2 mEq/L (5-15); Aspartate Amino Transferase 28 U/L (14-36); Bilirubin,Total 0.3 mg/dl (0.2-1.3); Blood Urea Nitrogen 14 mg/dl (7-17); Calcium 9.4 mg/dl (8.4-10.2); Carbon Dioxide 27 mmol/L (22.0-30.0); Chloride 100 mmol/L (98-107); Creatinine Clearance Estimated 60 mL/min (50-200); Estimated Glomerular Filt Rate 55 ml/min (>60); GFR (African American) 66 ML/MIN (>60); Globulin 2.7 g/dL (1.3-3.2); Glucose 140 mg/dl (74-100); Potassium 3.2 mmoL/L (3.5-5.1); Sodium 139 mmol/L (136-145)
[2022-02-03 14:29] LABS: Basophils # 0.1 K/mm3 (0-0.2); Basophils % 1.5 % (0.1-2.0); Eosinophils # 0.2 K/mm3 (0.0-0.4); Eosinophils % 4.2 % (0.1-12.0); Hematocrit 39.4 % (37.0-47.0); Hemoglobin 13.5 g/dL (12.2-16.2); Lymphocytes # 1.1 K/mm3 (0.7-4.5); Lymphocytes % 26.1 % (10-50); Mean Corpuscular HGB Conc 34.1 g/dL (31.8-35.4); Mean Corpuscular Hemoglobin 30.7 pg (27.0-31.2); Mean Platelet Volume 7.7 fl (7.4-10.4); Monocytes # 0.3 K/mm3 (0.1-1.0); Monocytes % 7.2 % (1.7-9.3); Neutrophils # 2.5 K/mm3 (1.8-7.8); Neutrophils % 61.1 % (37.0-80.0); Platelet Count 232 K/mm3 (142-424); Red Blood Count 4.38 M/mm3 (4.20-5.40); Red Cell Distribution Width 13.7 % (11.5-17.5); White Blood Count 4.1 K/mm3 (4.8-10.8)
[2022-02-03 15:21] LABS: Lactic Acid 4.3 mmol/L (0.7-2.1)
--- NOTE | 2022-02-03 15:24 | PC.NURSE ---
ER states she would like to repeat lactic acid level for confirmation, did also give verbal order for IVF bolus of LR x1
--- NOTE | 2022-02-03 15:26 | PC.NURSE ---
patient ambulatory to restroom without complications
--- NOTE | 2022-02-03 15:27 | PC.NURSE ---
notified lab of repeat lactic acid order, spoke with dona
[2022-02-03 15:38] LABS: Microscopic, Urine URINE MICROSCOPIC (MICROSCOPIC)
[2022-02-03 15:41] LABS: Appearance,Urine CLEAR (Clear); Bilirubin,Urine Negative (Negative); Blood, Urine Negative (Negative); Color,Urine YELLOW (Yellow); Glucose,Urine (UA) Negative (Negative); Ketones,Urine Negative (Negative); Leukocyte Esterase,Urine 1+ (Negative); Nitrate,Urine Negative (Negative); Protein,Urine Negative (Negative); Urobilinogen,Urine 0.2 EU/dl (0.2)
[2022-02-03 15:49] LABS: Lactic Acid 2.2 mmol/L (0.7-2.1)
--- NOTE | 2022-02-03 15:50 | PC.NURSE ---
pt repeat lactic acid is 2.2, notified ER MD
--- NOTE | 2022-02-03 15:52 | HMH.EDGENADL ---
ED Disposition Clinical Impression: Migraine Qualifiers: Migraine type: other Status migrainosus presence: without status migrainosus Intractability: not intractable Qualified Code(s): G43.809 - Other migraine, not intractable, without status migrainosus Urinary tract infection Qualifiers: Urinary tract infection type: site unspecified Hematuria presence: without hematuria Qualified Code(s): N39.0 - Urinary tract infection, site not specified Disposition: Home, Self-Care Condition on Discharge: Good Referrals: Ramos Betts MD [Primary Care Provider] - - Critical Care Critical Care Time: No Attestation: On 02/03/22, the high probability of a clinically significant, sudden or life threatening deterioration of the following system(s) required my full and direct attention, intervention and personal management. The time I documented below is in addition to time spent performing reported procedures but includes the following listed in this critical care notation. Medical Decision Making - Medical Records Medical records reviewed: Yes: I reviewed the patient's medical records. - Gagan Inquiry Pt receiving controlled substance: No Vital Signs: 02/03/22 13:50 02/03/22 13:56 02/03/22 14:00 Temperature 98.1 F Temperature Source Oral Pulse Rate 63 62 Pulse Rate [Orthostatic Lying] Pulse Rate [Orthostatic Standing] Pulse Rate [Right Radial] 62 Respiratory Rate 18 Blood Pressure 178/64 H 166/60 H Blood Pressure [Orthostatic Lying] Blood Pressure [Orthostatic Standing] Blood Pressure [Right Arm] 166/60 H Blood Pressure Mean Blood Pressure Mean [Right Arm] 95 Blood Pressure Source Automatic Cuff Blood Pressure Source [Right Arm] Automatic Cuff Blood Pressure Position Sitting Blood Pressure Position [Right Arm] Sitting 02 Sat by Pulse Oximetry 95 92 L 92 L Oxygen Delivery Method Room Air Room Air 02/03/22 14:20 02/03/22 14:31 02/03/22 15:01 Temperature Temperature Source Pulse Rate 62 68 58 L Pulse Rate [Orthostatic Lying] Pulse Rate [Orthostatic Standing] Pulse Rate [Right Radial] Respiratory Rate Blood Pressure 166/60 H 152/58 H 157/56 H Blood Pressure [Orthostatic Lying] Blood Pressure [Orthostatic Standing] Blood Pressure [Right Arm] Blood Pressure Mean Blood Pressure Mean [Right Arm] Blood Pressure Source Automatic Cuff Blood Pressure Source [Right Arm] Blood Pressure Position Sitting Blood Pressure Position [Right Arm] 02 Sat by Pulse Oximetry 92 L 90 L 94 L Oxygen Delivery Method Room Air 02/03/22 15:30 02/03/22 15:35 02/03/22 15:54 Temperature Temperature Source Pulse Rate 60 61 Pulse Rate [Orthostatic Lying] Pulse Rate [Orthostatic Standing] Pulse Rate [Right Radial] Respiratory Rate Blood Pressure 157/56 H 169/110 H 187/81 H Blood Pressure [Orthostatic Lying] Blood Pressure [Orthostatic Standing] Blood Pressure [Right Arm] Blood Pressure Mean 118 Blood Pressure Mean [Right Arm] Blood Pressure Source Automatic Cuff Blood Pressure Source [Right Arm] Blood Pressure Position Sitting Blood Pressure Position [Right Arm] 02 Sat by Pulse Oximetry 94 L 92 L Oxygen Delivery Method Room Air 02/03/22 15:56 02/03/22 16:00 02/03/22 16:31 Temperature Temperature Source Pulse Rate 69 62 Pulse Rate [Orthostatic Lying] 72 Pulse Rate [Orthostatic Standing] 70 Pulse Rate [Right Radial] Respiratory Rate Blood Pressure 155/67 H 177/79 H Blood Pressure [Orthostatic Lying] 187/81 H Blood Pressure [Orthostatic Standing] 155/67 H Blood Pressure [Right Arm] Blood Pressure Mean Blood Pressure Mean [Right Arm] Blood Pressure Source Blood Pressure Source [Right Arm] Blood Pressure Position Blood Pressure Position [Right Arm] 02 Sat by Pulse Oximetry 96 97 Oxygen Delivery Method 02/03/22 17:00 02/03/22 17:30 02/03/22
--- NOTE | 2022-02-03 15:53 | CT_ITS ---
PROCEDURE INFORMATION: Exam: CT Head Without Contrast Exam date and time: 02/03/2022 4:11 PM Age: 71 years old Clinical indication: Dizziness and other: Extreme headache; Additional info: Severe TILLMAN TECHNIQUE: Imaging protocol: Computed tomography of the head without contrast. Radiation optimization: All CT scans at this facility use at least one of these dose optimization techniques: automated exposure control; mA and/or kV adjustment per patient size (includes targeted exams where dose is matched to clinical indication); or iterative reconstruction. COMPARISON: BRAINWO MR head/brain wo con 09/09/2018 1:49 PM FINDINGS: Brain: Prominent sulci. Patchy hypodensity of the cerebral white matter which are nonspecific but likely secondary to microangiopathic changes. Bilateral basal ganglia and thalamic lacunes are present. Cerebral ventricles: The ventricles are prominent secondary to diffuse volume loss/atrophy. Paranasal sinuses: Visualized sinuses are unremarkable. No fluid levels. Mastoid air cells: Visualized mastoid air cells are well aerated. Bones/joints: Unremarkable. No acute fracture. Soft tissues: Unremarkable. IMPRESSION: Chronic age related changes but no evidence of acute intracranial pathology.
--- NOTE | 2022-02-03 16:11 | PC.NURSE ---
patient to radiology with forex trader by blaze
--- NOTE | 2022-02-03 16:12 | PC.NURSE ---
notified resp of VBG
[2022-02-03 16:14] LABS: D-Dimer 0.72 ug/mL (0.0-0.5)
[2022-02-03 16:17] LABS: Squamous Epithelial Cell,Urine Occasional #/hpf (0-5)
[2022-02-03 16:18] LABS: VBG Base Excess -1.4 mmol/L (-2.4-2.3); VBG HCO3 24.2 mmol/L (23-30); VBG PCO2 44.5 mmol/L (35-51); VBG PH 7.35 mmol/L (7.31-7.41); VBG PO2 46.9 mmol/L (28-40); VBG Total CO2 25.5 mmol/L (23-27)
--- NOTE | 2022-02-03 16:19 | PC.NURSE ---
patient back from radiology by stretcher with bottle house quality control technician
[2022-02-03 16:20] LABS: Coronavirus 19, PCR Not Detected (NotDetected); Influenza A, PCR Not Detected (NotDetected); Influenza B, PCR Not Detected (NotDetected)
[2022-02-03 16:23] LABS: NT Pro Brain Natriuretic Pep. 459 pg/mL (0-125)
[2022-02-03 16:29] LABS: Troponin I < 0.01 ng/ml (0.00-0.034)
[2022-02-03 16:41] LABS: Thyroid Stimulating Hormone 1.94 uIU/mL (0.465-4.68)
--- NOTE | 2022-02-03 18:13 | PC.NURSE ---
Went in and updated pt to let her know MD was tied up with critical patients. Pt understanding and had no new needs at this time.
[2022-02-03 19:08] LABS: Reflex Lactic Add Lactic Reflex
[2022-02-03 19:52] LABS: Troponin I < 0.01 ng/ml (0.00-0.034)
--- NOTE | 2022-02-03 20:06 | PC.NURSE ---
ER at bedside
== END 2022-02-03 20:52 | disposition home or self-care (01) ==
PROVIDERS: Emergency Provider Emergency Medicine; PCP Family Medicine
DX: G43.809 Other migraine, not intractable, without status migrainosus (principal); N30.00 Acute cystitis without hematuria; E11.9 Type 2 diabetes mellitus without complications; I25.10 Atherosclerotic heart disease of native coronary artery without angina pectoris; R06.02 Shortness of breath; I10 Essential (primary) hypertension; E78.5 Hyperlipidemia, unspecified; Z95.0 Presence of cardiac pacemaker; I47.2 Ventricular tachycardia; Z79.899 Other long term (current) drug therapy
CPT/HCPCS: 70450; 80053; 81001; 82803; 82962; 83605; 83880; 84443; 84484; 85025; 85378; 87040; 87086; 93005; 96360; 96375; 99285; C9803; U0003; U0005

== ENCOUNTER 2022-02-12 16:50 | Emergency (ER) | payer MEDICARE, SELFPAY ==
--- NOTE | 2022-02-12 16:57 | XR_ITS ---
PROCEDURE INFORMATION: Exam: XR Right Wrist Exam date and time: 02/12/2022 5:02 PM Age: 71 years old Clinical indication: Injury or trauma; Fall; Blunt trauma (contusions or hematomas); Wrist; Right; Injury date: 02/12/22 TECHNIQUE: Imaging protocol: XR Right wrist. Views: 3 or more views. COMPARISON: CR HANDR3 HAND-RT 3 VIEWS 01/21/2016 6:41 PM FINDINGS: Bones/joints: There is widening of the scapholunate articulation. Ligamentous disruption could not be excluded. There was slight obliquity on the previous study limiting interpretation of this region. No evidence of acute osseous injury. Soft tissues: Mild soft tissue swelling. IMPRESSION: 1. No evidence of acute osseous injury. 2. Findings suspicious for scapholunate ligamentous injury. Clinically correlate. If appropriate, consider follow-up with magnetic resonance imaging of the wrist.
--- NOTE | 2022-02-12 16:57 | XR_ITS ---
PROCEDURE INFORMATION: Exam: XR Right Shoulder Exam date and time: 02/12/2022 4:56 PM Age: 71 years old Clinical indication: Injury or trauma; Fall; Blunt trauma (contusions or hematomas); Shoulder; Right; Injury date: 02/12/2022 TECHNIQUE: Imaging protocol: XR Right shoulder. Views: 2 or more views. COMPARISON: HAFSA SHOU3R [id number] VIEWS 01/21/2016 6:47 PM FINDINGS: Bones/joints: Mild changes of osteopenia. No evidence of acute osseous injury. Soft tissues: Normal. IMPRESSION: No evidence of acute osseous injury.
--- NOTE | 2022-02-12 16:57 | XR_ITS ---
PROCEDURE INFORMATION: Exam: XR Right Humerus Exam date and time: 02/12/2022 4:58 PM Age: 71 years old Clinical indication: Injury or trauma; Fall; Blunt trauma (contusions or hematomas); Arm, upper; Right; Injury date: 02/12/2022 TECHNIQUE: Imaging protocol: XR Right humerus. Views: 2 or more views. COMPARISON: CR XR SHOULDER RT MIN 2V 02/12/2022 4:56 PM FINDINGS: Bones/joints: Mild changes of osteopenia. No evidence of acute osseous injury. Soft tissues: Normal. IMPRESSION: No evidence of acute osseous injury.
--- NOTE | 2022-02-12 16:57 | XR_ITS ---
PROCEDURE INFORMATION: Exam: XR Right Elbow Exam date and time: 02/12/2022 5:04 PM Age: 71 years old Clinical indication: Injury or trauma; Fall; Blunt trauma (contusions or hematomas); Elbow; Right; Injury date: 02/12/22 TECHNIQUE: Imaging protocol: XR Right elbow. Views: 3 or more views. COMPARISON: CR XR WRIST RT MIN 3V 02/12/2022 5:02 PM FINDINGS: Bones/joints: The is subtle cortical remodeling involving the proximal radius suggestive of chronic posttraumatic change. There are no findings to suggest an acute fracture. No joint effusion is demonstrated. Soft tissues: Normal. IMPRESSION: No evidence of acute osseous injury.
[2022-02-12 17:10] VITALS: BP 153/57; PULSE 68; RESP 18; TEMP 36.7; O2SAT 95; BMI 26.3
--- NOTE | 2022-02-12 17:56 | HMH.EDUTC ---
[facility] [place] Disposition Clinical Impression: Fall Qualifiers: Encounter type: initial encounter Qualified Code(s): W19.XXXA - Unspecified fall, initial encounter Disposition: Home, Self-Care Condition on Discharge: Good Instructions: How to Use a Sling, How To Perform RICE (Rest, Ice, Compress, Elevate) Additional Instructions: *RICE, Rest the extremity, Ice 15-20 minutes 3-4 times daily, Compress- wear the leonid wrap as discussed as much as possible to help reduce swelling and pain, Elevate the extremity when at rest *Sling and wrist splint is for support and help control swelling, use it except in the shower. Be sure that is not to tight but not to loose either *Elevate when resting *Ibuprofen 600-800mg every 6-8 hours as needed for pain an inflammation. If need something more can take Tylenol in between doses of Ibuprofen to help Immediately follow up with your family doctor for new or worsening of symptoms, or no noticeable improvement over the next 3-[address] Marrero office in the morning for appointment Return if needed Referrals: Ramos Betts MD [Primary Care Provider] - David Marrero MD [Staff Physician] - (call office tomorrow for appointment) Time of Disposition: 18:23 Medical Decision Making - Gagan Inquiry Pt receiving controlled substance: No Gagan was queried for this patient: No Vital Signs: 02/12/22 17:10 Temperature 98.1 F Temperature Source Oral Pulse Rate [Left Brachial] 68 Respiratory Rate 18 Blood Pressure [Left Arm] 153/57 H Blood Pressure Mean [Left Arm] 89 Blood Pressure Source [Left Arm] Automatic Cuff Blood Pressure Position [Left Arm] Sitting 02 Sat by Pulse Oximetry 95 Oxygen Delivery Method Room Air - Radiology Data #1 Image(s): Shoulder, Humerus Image Reviewed: Yes I have reviewed radiologist's interpretation IMPRESSION: No evidence of acute osseous injury. Humerus xray IMPRESSION: No evidence of acute osseous injury. #2 Image(s): Elbow Image Reviewed: Yes I have reviewed radiologist's interpretation IMPRESSION: No evidence of acute osseous injury. #3 Image(s): Wrist Image Reviewed: Yes I have reviewed radiologist's interpretation IMPRESSION: 1. No evidence of acute osseous injury. 2. Findings suspicious for scapholunate ligamentous injury. Clinically correlate. If appropriate, consider follow-up with magnetic resonance imaging of the wrist. - Physician Consults Physician Consulted: Dr Marrero Time: 17:58 Reason -: Orthopedic Eval/Care Comment/Response: Permit Coordinator to get ortho awaiting call back Dr Marrero advised sling and may splint and have her call the office tomorrow for appointment [facility] [place] HPI - General Stated complaint: AO 02/12@1600fell injured R arm/shoulder Time Seen by Provider: 02/12/22 17:20 Mode of Arrival: Ambulatory Source of Information: Patient Limitations: No Limitations Description of Symptoms (Recalled from Triage Doc. by RN): PATIENT STATES SHE FELL AROUND 1600 TODAY AND INJURED RIGHT SHOULDER, ARM, AND COLLAR BONE. NO LOC. NO KNOWN INJURIES HEENT Symptoms (Recalled from RN notes): No Resp Symptoms (Recalled from RN notes): No Skin Symptoms (Recalled from RN notes): No MS Symptoms (Recalled from RN notes): Yes Functional Status (Recalled from RN notes): WNL - History of Present Illness Provider Complaint: Patient states that around 4pm today she fell in ditch and landed on her right side State that she has been having pain from her shoulder down to her wrist ever since that is worse with movement States that she had family bring her in to get her checked to make sure she didnt break something - Related Data Home Medications Medication Instructions Recorded Confirmed albuterol sulfate 90 mcg/actuation 1 puff INHALATION DAILY 25 Days 06/07/18 02/04/22 aerosol inhaler Aspirin [Aspirin 81mg chewable 81 mg PO DAILY 02/14/19 02/04/22 tab] budesonide-formoterol HFA 160 1 puff INHALATION D
[2022-02-12 18:34] VITALS: BP 153/57; PULSE 68; RESP 18; TEMP 36.7; O2SAT 95
== END 2022-02-12 18:40 | disposition home or self-care (01) ==
PROVIDERS: Emergency Provider Nurse Practitioner; PCP Family Medicine
DX: W17.2XXA Fall into hole, initial encounter (principal); S49.91XA Unspecified injury of right shoulder and upper arm, initial encounter; M79.601 Pain in right arm; M25.511 Pain in right shoulder; Z79.82 Long term (current) use of aspirin; Z79.899 Other long term (current) drug therapy; Z88.2 Allergy status to sulfonamides; Z91.048 Other nonmedicinal substance allergy status; Z79.84 Long term (current) use of oral hypoglycemic drugs; E11.9 Type 2 diabetes mellitus without complications; E10.9 Type 1 diabetes mellitus without complications; I10 Essential (primary) hypertension; Z95.0 Presence of cardiac pacemaker
CPT/HCPCS: 73030; 73060; 73080; 73110; 99284

== ENCOUNTER → 2022-05-08 16:23 | Outpatient (CLI) | payer MEDICARE, SELFPAY | PROVIDERS: PCP Family Medicine; Visit Provider Physician Assistant | DX: Z20.822 Contact with and (suspected) exposure to COVID-19 (principal) | CPT/HCPCS: C9803; U0003; U0005 ==

== ENCOUNTER 2022-05-20 14:47 | Emergency (ER) | payer MEDICARE, SELFPAY ==
--- NOTE | 2022-05-20 15:04 | XR_ITS ---
FINAL REPORT CLINICAL HISTORY: fall, right shoulder pain FINDINGS: RIGHT SHOULDER: 3 views of the right shoulder were obtained. There is no acute fracture or dislocation. There is mild degenerative change of the acromioclavicular joint. There is no soft tissue abnormality. IMPRESSION: No acute bony abnormality. Reviewed, Interpreted and Dictated by Joni Gasca III, MD Transcribed by Sonia Billings Authenticated and . [facility]
[2022-05-20 15:10] VITALS: BP 148/45; PULSE 64; RESP 18; TEMP 36.9; O2SAT 95; BMI 25.8
--- NOTE | 2022-05-20 15:49 | HMH.EDUTC ---
[facility] [place] Disposition Clinical Impression: Right shoulder injury Qualifiers: Encounter type: initial encounter Qualified Code(s): S49.91XA - Unspecified injury of right shoulder and upper arm, initial encounter Fall Qualifiers: Encounter type: initial encounter Qualified Code(s): W19.XXXA - Unspecified fall, initial encounter Right shoulder pain Qualifiers: Chronicity: acute Qualified Code(s): M25.511 - Pain in right shoulder Disposition: Home, Self-Care Condition on Discharge: Good Instructions: Shoulder Sprain Additional Instructions: Rest the extremity, Take ibuprofen for pain if you are able to take this. Follow up with Dr. Marrero (orthopedics). Sometimes there can be fractures that don't show up well on the first set of x-rays. So, you should follow up. I put in a referral but you need to call his office and schedule an appointment. Follow up with your regular doctor. GO TO THE ER FOR ANY WORSENING SYMPTOMS Don't wear the arm sling salvage determiner. It's ok to wear it for comfort for a day or so, but if your pain is not getting better you need to follow up with orthopedics in 72 hours. Wearing the arm sling will make your shoulder stiffen up and hurt worse assisted. Referrals: Ramos Betts MD [Primary Care Provider] - David Marrero MD [Staff Physician] - Time of Disposition: 16:44 Medical Decision Making - Medical Records Medical records reviewed: No: I reviewed the patient's medical records. - Gagan Inquiry Pt receiving controlled substance: No Vital Signs: 05/20/22 15:10 05/20/22 16:52 Temperature 98.5 F 98.5 F Temperature Source Oral Pulse Rate 64 Pulse Rate [Left] 64 Respiratory Rate 18 18 Blood Pressure 148/45 H Blood Pressure [Right Arm] 148/45 H Blood Pressure Mean [Right Arm] 79 02 Sat by Pulse Oximetry 95 - Radiology Data #1 Image(s): Shoulder Image Reviewed: Yes I reviewed the patient's radiology image, Yes I have reviewed radiologist's interpretation Preliminary Findings: Normal/NAD, No Fracture Seen PROCEDURE INFORMATION: Exam: XR Right Shoulder Exam date and time: 02/12/2022 4:56 PM Age: 71 years old Clinical indication: Injury or trauma; Fall; Blunt trauma (contusions or hematomas); Shoulder; Right; Injury date: 02/12/2022 TECHNIQUE: Imaging protocol: XR Right shoulder. Views: 2 or more views. COMPARISON: HAFSA SHOU3R [id number] VIEWS 01/21/2016 6:47 PM FINDINGS: Bones/joints: Mild changes of osteopenia. No evidence of acute osseous injury. Soft tissues: Normal. IMPRESSION: No evidence of acute osseous injury. [facility] [place] HPI - General Stated complaint: Fell on RT shoulder; 05/20/22 Time Seen by Provider: 05/20/22 15:49 Mode of Arrival: Ambulatory Source of Information: Patient Limitations: No Limitations Description of Symptoms (Recalled from Triage Doc. by RN): patient comes in with complaints of right shoulder pain. patient states that she fell today and landed on her shoulder HEENT Symptoms (Recalled from RN notes): No Resp Symptoms (Recalled from RN notes): No Skin Symptoms (Recalled from RN notes): No MS Symptoms (Recalled from RN notes): Yes Functional Status (Recalled from RN notes): n/a - History of Present Illness Provider Complaint: She states that she fell at around 1200 today. She came down on the back of her right shoulder. Since then she has had right shoulder pain. Moving the shoulder makes the pain worse. - Related Data Home Medications Medication Instructions Recorded Confirmed albuterol sulfate 90 mcg/actuation 1 puff INHALATION DAILY 25 Days 06/07/18 05/06/22 aerosol inhaler Aspirin [Aspirin 81mg chewable 81 mg PO DAILY 02/14/19 05/06/22 tab] budesonide-formoterol HFA 160 1 puff INHALATION DAILY g 06/28/19 05/06/22 mcg-4.5 mcg/actuation aerosol inhaler montelukast 10 mg tablet 10 mg PO DAILY 90 Da
[2022-05-20 16:52] VITALS: BP 148/45; PULSE 64; RESP 18; TEMP 36.9
== END 2022-05-20 16:53 | disposition home or self-care (01) ==
PROVIDERS: Emergency Provider Nurse Practitioner Family; PCP Family Medicine
DX: S49.91XA Unspecified injury of right shoulder and upper arm, initial encounter (principal); W19.XXXA Unspecified fall, initial encounter
CPT/HCPCS: 73030; 99213; G0463

== ENCOUNTER → 2022-06-06 09:40 | Outpatient (CLI) | payer MEDICARE, SELFPAY ==
--- NOTE | 2022-06-06 09:41 | MR_ITS ---
FINAL REPORT CLINICAL HISTORY: eval for stenosis. nki. chronic lbp w/ radiculopathy. FINDINGS: Multiplanar MR imaging of the lumbar spine was performed without contrast. On the sagittal T2-weighted images, there is abnormal decreased signal throughout the lumbar discs. There is mild loss of height at the L1-2, L2-3 and L3-4 discs. The vertebral alignment is normal. L1-2: There is a mild diffuse disc bulge. There is mild bilateral neural foraminal narrowing. L2-3: There is a moderate diffuse disc bulge. There is mild to moderate bilateral neural foraminal narrowing, right greater than left. L3-4: There is a moderate diffuse disc bulge. There is a right paracentral disc protrusion. There is moderate compromise of the right lateral recess. There is moderate right neural foraminal narrowing. L4-5: There is a moderate diffuse disc bulge. There is moderate endplate hypertrophy eccentric to the left. There is moderate TI-RADS left neural foraminal narrowing. L5-S1: There is no significant canal stenosis or neural foraminal narrowing. An incidental note is made of marked right hydronephrosis is probably related to a distal right ureteral stone. There is a large cyst in the left kidney that measures 5.4 cm. IMPRESSION: Right paracentral disc protrusion at L3-4 with moderate compromise of the right lateral recess and right neural foraminal narrowing. Moderate to high-grade right neural foraminal narrowing at L4-5. Marked right hydronephrosis and hydroureter with obstructing stone. Cyst left kidney. Reviewed, Interpreted and Dictated by Daniel Jean MD Transcribed by Patricia Hernandez Authenticated and [facility]
--- NOTE | 2022-06-06 09:41 | MR_ITS ---
FINAL REPORT CLINICAL HISTORY: eval for stenosis. nki. chronic neck pain. COMPARISON: November 11, 2021 FINDINGS: Multi planar MR imaging was obtained of the cervical spine. There is abnormal decreased signal throughout the cervical discs. There is moderate loss of height at C4-5 and C5-6. There is no malalignment. The cervical cord demonstrates normal signal and configuration. C2-C3: There is no evidence of significant disc bulge or protrusion. There is no significant facet hypertrophy. C3-C4: There is a mild disc bulge. There is mild endplate hypertrophy. C4-C5: There is moderate endplate hypertrophy. There is moderate bilateral neural foraminal narrowing. C5-C6: There is mild endplate hypertrophy eccentrically greater on the left. There is mild to moderate left neural foraminal narrowing. C6-C7: There is a moderate diffuse disc bulge. There is endplate hypertrophy. There is moderate bilateral neural foraminal narrowing. C7-T1: There is a mild disc bulge. There is mild bilateral neural foraminal narrowing. IMPRESSION: Diffuse changes of degenerative disc disease with bilateral neural foraminal compromise most evident at C4-5 and C6-7 and at C5-6 on the left. Reviewed, Interpreted and Dictated by Daniel Jean MD Transcribed by Patricia Hernandez Authenticated and [facility]
--- NOTE | 2022-06-06 11:03 | XR_ITS ---
FINAL REPORT CLINICAL HISTORY: eval for stenosis, LOW BACK PAIN, NECK PAIN FINDINGS: CERVICAL SPINE Multiple views including flexion extension were obtained. There is no acute fracture. There is reversal of the normal cervical lordosis. There is advanced disc space narrowing at C4-5, C5-6 and C7-L1. There is mild neural foraminal narrowing. There is no instability with flexion and extension. There is no soft tissue abnormality. IMPRESSION: Degenerative disc disease as above. LUMBAR SPINE Five views were obtained. There is no acute fracture. There is moderate disc space narrowing throughout the lumbar discs. There are mild anterior osteophyte formation at T12-L1, L1-2 and L2-3. Is bilateral facet sclerosis of the lower lumbar spine. IMPRESSION: Diffuse changes of degenerative disc disease most evident at T12-L1, L1-2 and L2-3. Reviewed, Interpreted and Dictated by Daniel Jean MD Transcribed by Patricia Hernandez Authenticated and [facility]
== END ==
PROVIDERS: PCP Family Medicine; Visit Provider Nurse Practitioner Family
DX: G89.29 Other chronic pain (principal); M47.812 Spondylosis without myelopathy or radiculopathy, cervical region; M54.2 Cervicalgia; M54.50 Low back pain, unspecified; R20.0 Anesthesia of skin; R20.2 Paresthesia of skin; R26.89 Other abnormalities of gait and mobility; R29.2 Abnormal reflex; R29.6 Repeated falls
CPT/HCPCS: 72084; 72141; 72148; 76376

== ENCOUNTER → 2022-06-30 10:48 | Outpatient (CLI) | payer MEDICARE, SELFPAY ==
--- NOTE | 2022-06-30 10:53 | CT_ITS ---
FINAL REPORT TECHNIQUE: Axial images through the abdomen and pelvis were performed without contrast.This study was performed with techniques to keep radiation doses as low as reasonably achievable, (ALARA). Individualized dose reduction techniques using automated exposure control or adjustment of mA and/or kV according to the patient's size were employed. CLINICAL HISTORY: RIGHT HYDRONEPHROSIS FINDINGS: ABDOMEN: The lung bases are clear. The heart size is normal. There is a trace pericardial effusion. Limited images of the liver are unremarkable. The spleen is normal. No adrenal mass is identified. The aorta is normal in caliber. There is no significant free fluid or adenopathy. There is a benign-appearing cyst arising from the left kidney measuring 5.0 cm. Marked right hydronephrosis and hydroureter is seen within obstructing stone in the mid right ureter measuring 1.2 cm. PELVIS: The appendix is not identified. There is descending and sigmoid diverticulosis without evidence of diverticulitis. The urinary bladder is unremarkable. There is no significant free fluid or adenopathy. IMPRESSION: Marked right hydronephrosis secondary to 1.2 cm mid right ureteral stone. Reviewed, Interpreted and Dictated by Daniel Jean MD Transcribed by Kelly Dillon Authenticated and . [facility]
== END ==
PROVIDERS: PCP Family Medicine; Visit Provider Urology
DX: N13.30 Unspecified hydronephrosis (principal)
CPT/HCPCS: 74176

== ENCOUNTER → 2022-07-09 14:25 | Outpatient (CLI) | payer MEDICARE, SELFPAY | PROVIDERS: PCP Family Medicine; Visit Provider Urology | DX: N20.1 Calculus of ureter (principal); Z01.812 Encounter for preprocedural laboratory examination; Z20.822 Contact with and (suspected) exposure to COVID-19 | CPT/HCPCS: C9803; U0003; U0005 ==

== ENCOUNTER 2022-07-11 07:14 | Day surgery (SDC) | payer MEDICARE, SELFPAY ==
[2022-07-09 12:32] VITALS: BMI 26.6
[2022-07-11] VITALS (11 sets, daily range): BP systolic 118–139; BP diastolic 51–80; PULSE 61–72; RESP 16–18; TEMP 36.3–36.6; O2SAT 92–97
--- NOTE | 2022-07-11 08:53 | P.PN_ITS ---
PFSH PFS Medical History Abnormal EKG Anxiety Asthma Carotid artery disease IVANNA (cerebral atherosclerosis) Depressed Diabetes Dizziness Dyspnea Equivocal stress test Fatigue GERD (gastroesophageal reflux disease) HLD (hyperlipidemia) Holter monitor, abnormal HTN (hypertension) Left carotid bruit Mitral valve regurgitation Pulmonary HTN SVT (supraventricular tachycardia) Syncope Surgical History H/O local excision of skin lesion H/O ureteroscopy Family History Other Family history of cancer Glaucoma Social History Smoking Status: Never smoker second hand exposure: No alcohol intake: never substance use type: denies use current occupational status: retired Travel in the last 8 weeks: None household members: none housing: house number of children: 4 current occupational exposures/hazards: No caffeine: Yes [facility] Anesthesia Checklist Patient Identification Patient Identification: Arm Band and Verbal (Name & ) Structural Data Admitted From: Home Planned Operative Procedure/s: Ureteroscopy Consent for Planned Operative Procedure(s) Verified: Yes NPO Status Verified Time NPO: 00:00 Chart Verification Results Verified: CBC and BMP Additional verifications Anesthesia Reactions: No Hx Blood Transfusions: No Blood Transfusion Reaction: No Airway Assessment C-Spine Mobility Assessed: Yes TMJ Mobility Assessed: Yes Dentition: Dentures-good fit Neurological Assessment Level of Consciousness: Awake Hx Seizures: No Numbness or tingling in extremities: No Anesthesia Plan Anesthesia Risk discussed: Yes Anesthesia Plan: Verified ASA Class: III Anesthesia Type: General
--- NOTE | 2022-07-11 10:24 | XR_ITS ---
FINAL REPORT CLINICAL HISTORY: URETEROSCOPY WITH STONE EXTRACTION IN OR ft: 0:16 FINDINGS: Fluoroscopic guidance was provided for the operating services. Two spot films were provided. 16 seconds of fluoroscopy time was utilized. IMPRESSION: 16 seconds of fluoroscopy time. Reviewed, Interpreted and Dictated by Fabi Reynoso MD Transcribed by Taiwo Yates Authenticated and [facility]
--- NOTE | 2022-07-11 10:30 | EXP.ANES.I ---
[facility] Anesthesia Record Part I Anesthesia Record I Intake, IV Amount: 500 Estimated blood loss (mL): 0 Urine output (mL): 0 Blood Pressure: 118/51 SaO2: 93 Pulse Rate: 62 Respiratory Rate: 18 Temperature: 97.3 F Patient is:: Drowsy
--- NOTE | 2022-07-11 10:40 | SUR.PHASEI ---
1032- blood sugar taken at this time via finger stick is 145. vanessa martinez aware
[2022-07-11 10:42] LABS: POC Glucose,Bedside 145 (70-110)
--- NOTE | 2022-07-11 10:45 | EXP.OP.NOTE ---
Date of procedure: 07/11/22 Pre-op Diagnosis:: 1.2 cm right ureteral stone Post-op Diagnosis:: Same Procedure performed:: Right ureteroscopy, laser lithotripsy, stone extraction, right stent placement. Surgeon:: Jose Gee MD [employer]IC:: Tonya Conte Anesthesia: LMA Estimated blood loss (mL): 0 Clinical Note:: 72-year-old white female with an incidentally noted 1.2 cm stone in her right mid ureter. She presents for urologic management today. Operative findings:: 1.2 cm stone noted in the right mid ureter. Operative note:: Patient taken to the operating room after informed consent was obtained. She was placed on the operating table in the supine position and general anesthesia administered. Preoperative antibiotics and sequential compression devices placed. She was then placed into the dorsolithotomy position and prepped draped in the standard surgical fashion. The 22 Armenian cystoscope was passed into the bladder and the bladder examined in a systematic fashion. There was no evidence of stones or mucosal abnormalities. A guidewire was then passed into the right ureteral orifice and under fluoroscopy passed into the right renal pelvis without problem. There was a calcification noted just under the pelvic brim on fluoroscopy. The cystoscope removed and our semirigid ureteroscope passed into the right ureter and up to the level of the stone. A 242 nm laser fiber was passed through the scope and the stone was fragmented into small pieces. The laser fiber was then removed and a 1.9 Armenian stone basket was passed through the scope and all the sizable stone fragments were removed. A 4.8 x 24 Armenian stent was then passed over the guidewire and under fluoroscopy the guidewire removed. A good curl was noted proximally and distally. String was left on for later removal. Condition: stable Disposition: PACU Specimens:: Stone fragments were retrieved. Complications:: None
--- NOTE | 2022-07-11 11:04 | SUR.PHASEI ---
1059- detailed report called to gretta small in post op 1100- pt left in stable condition with gretta small in post op at this time. Monitors on and All vitals stable
--- NOTE | 2022-07-11 14:30 | EXP.ANES.II ---
[facility] Anesthesia Record Part II Anesthesia Record Part II Discharge Time: 10:59 Destination: Surgical Day Care (OP Surgery) PACU nurse assessment reviewed?: Yes Patient Condition:: Good Anesthesia Complications:: None Swallowing reflex intact?: Yes Cyanosis?: No Blood Pressure: 137/73 Pulse Rate: 61 Temperature: 97.5 F Mental Status: Alert & Oriented Pain level:: 0 Nausea and/or vomitting:: None Intake, IV Amount: 0
[2022-07-11 16:50] LABS: POC Glucose,Bedside 202 (70-110)
== END 2022-07-11 11:50 | disposition home or self-care (01) ==
PROVIDERS: PCP Family Medicine; Visit Provider Urology
PROC: (CPT 52352; principal; 2022-07-11 08:45)
DX: N20.1 Calculus of ureter (principal); Z79.899 Other long term (current) drug therapy
CPT/HCPCS: 52356; 74018; 82962; 96374; C2617; J2405

== ENCOUNTER 2022-07-16 22:00 | Inpatient (IN) | payer MEDICARE, SELFPAY ==
[2022-07-16 22:07] VITALS: BP 179/75; PULSE 130; O2SAT 96
--- NOTE | 2022-07-16 22:25 | ECG_ITS ---
APPROVED REPORT Exam: Resting ECG HR:123 bpm ECG Measurements Heart Rate 123 AXES ND 132 P 56 QRSd 87 QRS 45 QT 337 T 76 QTc 410 Conclusion SINUS TACHYCARDIA NONSPECIFIC ST & T-WAVE ABNORMALITY ABNORMAL RHYTHM ECG UNCONFIRMED REPORT Electronically signed by : Travis Mccormick MD 07/19/2022 17:44:10
[2022-07-16 22:30] VITALS: BP 180/65; PULSE 125; O2SAT 92
--- NOTE | 2022-07-16 22:57 | XR_ITS ---
PROCEDURE INFORMATION: Exam: XR Chest Exam date and time: 07/16/2022 10:46 PM Age: 72 years old Clinical indication: Screening exam; Other screening; Additional info: Denies chest pain, SOA. TECHNIQUE: Imaging protocol: Radiologic exam of the chest. Views: 2 views. COMPARISON: CR Chest 06/04/2022 6:09 AM FINDINGS: Lungs: Unremarkable. No consolidation. Pleural spaces: Unremarkable. No pleural effusion. No pneumothorax. Heart/Mediastinum: Unremarkable. No cardiomegaly. Bones/joints: Degenerative changes. IMPRESSION: No acute findings.
--- NOTE | 2022-07-16 22:57 | CT_ITS ---
PROCEDURE INFORMATION: Exam: CT Abdomen And Pelvis Without Contrast Exam date and time: 07/16/2022 10:54 PM Age: 72 years old Clinical indication: Abdominal pain; Localized; Right lower quadrant (rlq); Additional info: PT states rlq pain TECHNIQUE: Imaging protocol: Computed tomography of the abdomen and pelvis without contrast. Radiation optimization: All CT scans at this facility use at least one of these dose optimization techniques: automated exposure control; mA and/or kV adjustment per patient size (includes targeted exams where dose is matched to clinical indication); or iterative reconstruction. COMPARISON: CR Pelvis 04/22/2022 11:11 PM FINDINGS: Lungs: Granulomatous calcifications in the posteromedial right lung base and lower right mediastinum. Heart: Heart size normal. Mild coronary artery calcification. Small pericardial effusion. Mediastinal space: The visualized distal esophagus is largely contracted without gross abnormality. Liver: Normal contour. No mass lesions. No intrahepatic biliary ductal dilatation. Gallbladder and bile ducts: Gallbladder is unremarkable. Common hepatic duct is mildly dilated at 10 mm diameter although there is no significant dilatation of the common bile duct for the patient's age, measuring 7 mm maximum diameter. Clinical/laboratory correlation recommended to exclude evidence of biliary obstruction. Consider sonographic assessment as clinically indicated. Pancreas: Normal. No inflammatory changes or ductal dilation. Spleen: Normal. No splenomegaly. Adrenal glands: Normal. No adrenal mass. Kidneys and ureters: Severe right hydronephrosis and proximal hydroureter with moderate right perinephric stranding and periureteral stranding. There is wall thickening in the proximal ureter and renal pelvis. This suggest changes of infection and pyonephrosis. There is a 4 mm nonobstructive stone in a posterior midpole calyx in the right kidney, however no ureteral stones are identified. The dilated right ureter transitions to normal caliber distal ureter in the right hemipelvis about 7 cm from the UVJ. No obstructive stones are evident in this region. Consider the possibility of an obstructive urothelial lesion. Recommend consult, consider ureteroscopy. There are bilateral renal cortical lesions demonstrating low density values and circumscribed margins favoring simple renal cysts for which no further imaging evaluation is required. Stomach and bowel: The stomach is largely contracted without gross abnormality. The small bowel is nondilated with no gross abnormality. Moderate-severe generalized colonic diverticulosis without changes of diverticulitis. Appendix: The appendix is normal in caliber and demonstrates no evidence of appendicitis. Intraperitoneal space: No free fluid or air. Vasculature: Moderate atherosclerotic aortoiliac calcification without aneurysm. Lymph nodes: No adenopathy. Urinary bladder: Unremarkable as visualized. Reproductive: Unremarkable as visualized. Bones/joints: No acute osseous abnormalities. Multilevel moderate lumbar disc degenerative changes with slight degenerative anterolisthesis L3-L4. Soft tissues: Very small fatty umbilical hernia . No evidence of associated bowel herniation or strangulation. IMPRESSION: 1. Severe right hydronephrosis and proximal hydroureter with moderate perinephric stranding and periureteral stranding and ureteral wall thickening, concerning for UTI and pyonephrosis. No obstructive urolithiasis is evident. 2. There is a focal transition point in the right ureter about 7 cm from the UVJ, with nondilated distal ureter. No obstructive stone in the
[2022-07-16 23:14] VITALS: BP 165/59; PULSE 117; O2SAT 98
[2022-07-16 23:30] VITALS: BP 153/56; PULSE 112; O2SAT 93
[2022-07-17] VITALS (20 sets, daily range): BP systolic 143–199; BP diastolic 56–96; PULSE 91–132; RESP 16; TEMP 36.6–39.5; O2SAT 89–98; BMI 26.6
[2022-07-17 00:25] LABS: Coronavirus 19, PCR Not Detected (NotDetected); Influenza A, PCR Not Detected (NotDetected); Influenza B, PCR Not Detected (NotDetected); Microscopic, Urine URINE MICROSCOPIC (MICROSCOPIC)
[2022-07-17 00:28] LABS: Basophils % 0.4 % (0.1-2.0); Eosinophils % 0.2 % (0.1-12.0); Hematocrit 38.6 % (37.0-47.0); Hemoglobin 13.1 g/dL (12.2-16.2); Lymphocytes # 0.4 K/mm3 (0.7-4.5); Lymphocytes % 5.2 % (10-50); Mean Corpuscular Hemoglobin 30.3 pg (27.0-31.2); Mean Corpuscular Volume 88.9 fl (81-99); Mean Platelet Volume 7.6 fl (7.4-10.4); Monocytes % 7.2 % (1.7-9.3); Neutrophils # 6.8 K/mm3 (1.8-7.8); Neutrophils % 86.4 % (37.0-80.0); Platelet Count 194 K/mm3 (142-424); Red Blood Count 4.34 M/mm3 (4.20-5.40); Red Cell Distribution Width 13.2 % (11.5-17.5); White Blood Count 7.8 K/mm3 (4.8-10.8)
[2022-07-17 00:29] LABS: Erythrocyte Sedimentation Rate 49 mm/hr (0-30); Lactic Acid 1.6 mmol/L (0.7-2.1); MANUAL DIFFERENTIAL MANUAL DIFFERENTIAL (MANUAL DIFF); Monocytes # 0.6 K/mm3 (0.1-1.0)
[2022-07-17 00:30] LABS: Amylase 34 U/L (30-110); Anion Gap 15.7 mEq/L (5-15); Blood Urea Nitrogen 17 mg/dl (7-17); C-Reactive Protein 161.1 mg/L (0-4); Carbon Dioxide 29 mmol/L (22.0-30.0); Chloride 93 mmol/L (98-107); Creatinine Clearance Estimated 59 mL/min (50-200); Estimated Glomerular Filt Rate 70 ml/min (>60); GFR (African American) 85 ML/MIN (>60); Glucose 250 mg/dl (74-100); Lipase 49 U/L (23-300); NT Pro Brain Natriuretic Pep. 859 pg/mL (0-125); Potassium 3.7 mmoL/L (3.5-5.1); Sodium 134 mmol/L (136-145); Troponin I 0.01 ng/ml (0.00-0.034)
[2022-07-17 00:31] LABS: Appearance,Urine Cloudy (Clear); Color,Urine Yellow (Yellow); Protein,Urine 2+ (Negative)
[2022-07-17 00:32] LABS: Bilirubin,Urine Negative (Negative); Blood, Urine 3+ (Negative); Glucose,Urine (UA) Negative (Negative); Ketones,Urine 1+ (Negative); Leukocyte Esterase,Urine 3+ (Negative); Nitrate,Urine Positive (Negative); Urobilinogen,Urine 0.2 EU/dl (0.2)
[2022-07-17 00:33] LABS: Bacteria,Urine 1+ /lpf; Lymphocytes % 9 % (10-50); Monocytes % 4 % (2-9); Neutrophils % 87 % (42-76); Platelet Estimate Normal; RBC Morphology Normal; RBC,Urine TNTC #/hpf (0-3); Squamous Epithelial Cell,Urine Occasional #/hpf (0-5); Total Cells Counted 100; WBC,Urine TNTC #/hpf (0-3)
--- NOTE | 2022-07-17 02:06 | HMH.EDUROGF ---
Discharge Plan Disposition Patient Disposition: Admitted As Inpatient Chief Complaint: Urogenital-Female Clinical Impressions Clinical Impression: Acute pyelonephritis, Diabetes mellitus, SIRS (systemic inflammatory response syndrome) Discharge ED Provider: Jose Cruz Female Urogenital HPI General Chief complaint: Urogenital-Female Stated complaint: UTI Time Seen by Provider: 07/17/22 02:06 Mode of Arrival: Wheelchair Source of Information: Patient, Relative and Medical Record Limitations: No Limitations Description of Symptoms (Recalled from ER Triage Doc. by RN): Per patient, she was seen by on Thursday to have a kidney stone removed and removed her stent at home on Thursday. Patient states that Thursday she began having lower back and abdominal pain with feelings of generalized malaise, decreased appetite and oral intake, increased urinary frequency, decreased urine output and feelings of forgetfulness. History of Present Illness HPI Narrative: pt with urology procedure-on 07/11/22 -rt ureteroscopy with laser lithotripsy with stone extraction and stent placement - removed stent on thursday at home - with back pain and malaise with dec po intake and presented to ed for eval -noted to have fever in ed - has hx of diabetes mellitus MD Complaint: dysuria and other (recent urology ) Onset (ago): day(s) Severity: moderate Associated symptoms: loss of appetite Related Data Home Medications Medication Instructions Recorded Confirmed albuterol sulfate 90 mcg/actuation 1 puff inhalation DAILY Breathing 06/07/18 07/17/22 aerosol inhaler problems 25 days budesonide-formoterol HFA 160 1 puff inhalation DAILY Breathing 06/28/19 07/17/22 mcg-4.5 mcg/actuation aerosol problems inhaler montelukast 10 mg tablet 10 mg PO DAILY Breathing problems 07/04/19 07/17/22 90 days #90 tabs diltiazem HCl 120 mg 120 mg PO BID Heart disease 90 07/25/19 07/17/22 capsule,extended release 24 hr days #180 caps losartan 100 1 tab PO DAILY blood pressure 08/22/19 07/17/22 mg-hydrochlorothiazide 25 mg tablet rosuvastatin 5 mg tablet 5 mg PO DAILY Cholesterol 08/22/19 07/17/22 doxazosin 8 mg tablet 8 mg PO DAILY . 06/13/20 07/17/22 paroxetine HCl 40 mg tablet 40 mg PO DAILY Depression 05/17/21 10/06/22 oxazepam 10 mg capsule 10 mg PO BID . 06/11/21 07/17/22 furosemide 20 mg tablet 20 mg PO DAILY edema 02/24/22 07/17/22 metformin 1,000 mg tablet 1,000 mg PO BID Diabetes 90 days 02/24/22 07/17/22 #180 tabs buspirone 15 mg tablet 15 mg PO BID . 07/11/22 07/17/22 metoprolol tartrate 25 mg tablet 25 mg PO BID bp 07/11/22 07/17/22 primidone 50 mg tablet See Rx Instructions .Route 07/11/22 07/17/22 .COMPLEX . Allergies Allergy/AdvReac Type Severity Reaction Status Date / Time Sulfa (Sulfonamide Allergy Unknown Verified 06/19/22 15:35 Antibiotics) [SULFA (SULFONAMIDE ANTIBIOTICS)] Adhesives Allergy Unknown I-ITCHING Uncoded 06/19/22 15:35 PFSH PFSH Medical History Abnormal EKG Anxiety Asthma Carotid artery disease IVANNA (cerebral atherosclerosis) Depressed Diabetes Dizziness Dyspnea Equivocal stress test Fatigue GERD (gastroesophageal reflux disease) HLD (hyperlipidemia) Holter monitor, abnormal HTN (hypertension) Left carotid bruit Mitral valve regurgitation Pulmonary HTN SVT (supraventricular tachycardia) Syncope Surgical History H/O local excision of skin lesion H/O ureteroscopy Family History Other Family history of cancer Glaucoma Social History Smoking Status: Never smoker second hand exposure: No alcohol intake: never substance use type: denies use current occupational status: retired Travel in the last 8 weeks: None household members: none housing: h
--- NOTE | 2022-07-17 02:26 | PC.NURSE ---
Attempting to contact as patient had urological procedure done on Thursday and was not given instructions as to who to follow up with and who to see with complications from procedure.
--- NOTE | 2022-07-17 02:27 | PC.NURSE ---
Patient continues to rest in bed. Patient c/o headache and bodyaches. Given 2mg morphine per md order.
--- NOTE | 2022-07-17 02:31 | PC.NURSE ---
Called Dr. Gee left a voicemail to call back at this time
[2022-07-17 03:26] LABS: Troponin I 0.02 ng/ml (0.00-0.034)
--- NOTE | 2022-07-17 03:34 | PC.NURSE ---
paged Dr Freeman at this time
--- NOTE | 2022-07-17 03:36 | PC.NURSE ---
ER speaking with Dr Freeman at this time
--- NOTE | 2022-07-17 05:04 | PC.NURSE ---
patient up to floor via wheelchair @ this time.
[2022-07-17 06:39] LABS: POC Glucose,Bedside 250 (70-110)
[2022-07-17 06:44] LABS: Basophils % 0.4 % (0.1-2.0); Eosinophils % 0.1 % (0.1-12.0); Lymphocytes # 0.4 K/mm3 (0.7-4.5); Lymphocytes % 5.9 % (10-50); Mean Corpuscular HGB Conc 33.6 g/dL (31.8-35.4); Mean Corpuscular Hemoglobin 30.2 pg (27.0-31.2); Mean Corpuscular Volume 89.9 fl (81-99); Mean Platelet Volume 7.6 fl (7.4-10.4); Monocytes # 0.6 K/mm3 (0.1-1.0); Monocytes % 8.7 % (1.7-9.3); Neutrophils # 5.7 K/mm3 (1.8-7.8); Platelet Count 162 K/mm3 (142-424); Red Blood Count 3.78 M/mm3 (4.20-5.40); Red Cell Distribution Width 13.2 % (11.5-17.5); White Blood Count 6.7 K/mm3 (4.8-10.8)
[2022-07-17 07:09] LABS: Chloride 99 mmol/L (98-107); Potassium 3.5 mmoL/L (3.5-5.1); Sodium 137 mmol/L (136-145)
[2022-07-17 07:11] LABS: Blood Urea Nitrogen 12 mg/dl (7-17); Creatinine Clearance Estimated 60 mL/min (50-200); Estimated Glomerular Filt Rate 98 ml/min (>60); GFR (African American) 119 ML/MIN (>60)
[2022-07-17 07:12] LABS: Anion Gap 13.5 mEq/L (5-15); Carbon Dioxide 28 mmol/L (22.0-30.0); Glucose 247 mg/dl (74-100); Magnesium 1.4 mg/dl (1.6-2.3)
[2022-07-17 07:56] LABS: Hemoglobin 11.6 g/dL (12.2-16.2)
--- NOTE | 2022-07-17 08:00 | EXP.PHA.VTE ---
[facility] Pharm[facility] VTE Monitoring Patient Demographics Admission date: 07/17/22 Report Date: 07/17/22 Time: 08:01 Patient Allergies Sulfa (Sulfonamide Antibiotics) [SULFA (SULFONAMIDE ANTIBIOTICS)] Allergy (Unknown, Verified 06/19/22 15:35) Adhesives Allergy (Unknown, Uncoded 06/19/22 15:35) I-ITCHING Height: 1.68 m Weight: 75.342 kg Current Active Problems (Updated 07/17/22 @ 04:22 by Jose Cruz MD) Acute pyelonephritis (Acute) SIRS (systemic inflammatory response syndrome) (Acute) VTE Risk Labs: VTE Related Lab Results Hgb 11.6 g/dL (12.2-16.2) L D 07/17/22 05:55 Hct 34.0 % (37.0-47.0) L 07/17/22 05:55 Plt Count 162 K/mm3 (142-424) 07/17/22 05:55 BUN 12 mg/dl (7-17) D 07/17/22 05:55 Creatinine 0.60 mg/dl (0.52-1.04) D 07/17/22 05:55 Estimated Creat Clear 60 mL/min (50-200) 07/17/22 05:55 Prophylaxis VTE Prophylaxis Ordered?: Yes Types of VTE Prophylaxis: TEDS Knee High (PT AMBULATING)
--- NOTE | 2022-07-17 08:03 | PC.NURSE ---
RN aware of elevated temp.
--- NOTE | 2022-07-17 08:06 | HMH.PHAINT1 ---
Pharmacy Intervention Comments: Home medication reconciliation completed using outpatient pharmacy list.
--- NOTE | 2022-07-17 08:40 | EXP.HP ---
History of Present Illness *Admission Date: 07/17/22 *Reason for visit:: fever, flank pain, status post kidney stent *History of present illness: Ms. Alex is a 72-year-old female who was seen on Thursday at [facility] by Dr. Gee to have lithotripsy. A stent was placed at that time. She was told to remove the stent at home on Thursday and was sent home on cefdinir. Patient states Thursday evening after removing the stent, she began having right lower back pain and abdominal cramping on the right side. She had feelings of general malaise and weakness and has had decreased appetite and oral intake. She states she has been urinating more frequently and there has been quite a bit of blood. She states she has laid in the bed the past few days and thinks she has had a fever. She presented to the emergency room yesterday and was found to have a fever and pyelonephritis. She was admitted for IV antibiotics and IV fluids. [facility] Medical History (Updated 07/17/22 @ 08:52 by CLARK Patel) Abnormal EKG Anxiety Asthma Carotid artery disease IVANNA (cerebral atherosclerosis) Cervical disc disease with myelopathy Depressed Diabetes Diverticulosis Dizziness Dyspnea Equivocal stress test Fatigue GERD (gastroesophageal reflux disease) History of left heart catheterization HLD (hyperlipidemia) Holter monitor, abnormal HTN (hypertension) Hyperlipidemia, mixed Iron deficiency anemia Left carotid bruit Mitral valve regurgitation Obstructive sleep apnea Pulmonary HTN SVT (supraventricular tachycardia) Syncope Surgical History (Updated 07/17/22 @ 08:47 by CLARK Patel) H/O local excision of skin lesion H/O ureteroscopy History of breast biopsy History of colonoscopy History of esophagogastroduodenoscopy (EGD) Hx of LASIK Family History (Updated 07/17/22 @ 08:47 by CLARK Patel) Diabetes Family history of cancer Glaucoma Social History Smoking Status: Never smoker second hand exposure: No alcohol intake: never substance use type: denies use current occupational status: retired Travel in the last 8 weeks: None household members: none housing: house number of children: 4 current occupational exposures/hazards: No caffeine: Yes Review of Systems Constitutional Constitutional: Reports fatigue, Reports fever(s), Reports headache(s), Reports malaise and Reports weakness Eyes Eyes: Denies blurry vision and Denies diplopia ENT Ears, Nose, Mouth, and Throat: Reports headache(s), Denies nasal congestion, Denies sore throat and Denies vertigo *Cardiovascular Cardiovascular: Denies chest pain and Denies dyspnea *Respiratory Respiratory: Denies cough and Denies dyspnea *Gastrointestinal Gastrointestinal: Reports abdominal pain (right lower quadrant), Reports cramping, Denies loose stools, Reports nausea and Reports vomiting *Genitourinary Genitourinary: Reports dysuria, Reports flank pain (right flank) and Reports hematuria *Musculoskeletal Musculoskeletal: Reports muscle weakness and Denies myalgias *Neurologic Neurologic: Reports headache(s), Denies vertigo and Reports weakness Endocrine Endocrine: Reports fatigue Meds Home Medications and Allergies Home Medications Medication Instructions Recorded Confirmed Type albuterol sulfate 90 mcg/actuation 1 puff inhalation DAILY Breathing 06/07/18 07/17/22 History aerosol inhaler problems 25 days budesonide-formoterol HFA 160 1 puff inhalation DAILY Breathing 06/28/19 07/17/22 History mcg-4.5 mcg/actuation aerosol problems inhaler montelukast 10 mg tablet 10 mg PO DAILY Breathing problems 07/04/19 07/17/22 History 90 days #90 tabs diltiazem HCl 120 mg 120 mg PO BID heart rate 90 days 07/25/19 07/17/22 History capsule,extended release 24 hr #180 caps rosuvastatin 5 mg tablet 5 mg PO DAILY Cholesterol 08/22/19 07/17/22 History doxazosin 8 mg tablet 8 mg PO DAILY bl
[2022-07-17 12:26] LABS: POC Glucose,Bedside 243 (70-110)
[2022-07-17 17:05] LABS: POC Glucose,Bedside 187 (70-110)
--- NOTE | 2022-07-17 18:38 | PC.NURSE ---
Zofran and toradol given for headache that has persisted all shift. Tramadol and tylenol given as well. No relief noted, morphine given as well as zofran. Patient has had a fever throughout the shift that was controlled with tylenol and toradol. Patient able to be free of fever for a short while before fever returned. Patient also complained of nausea throughout the shift. Pt stated zofran helps, frequency increased on order per Dr. Gould. IV fluids maintained. Broth and jello served for dinner and pt able to tolerate better. VS stable.
[2022-07-17 20:26] LABS: POC Glucose,Bedside 159 (70-110)
[2022-07-18] VITALS (7 sets, daily range): BP systolic 149–157; BP diastolic 57–81; PULSE 78–95; RESP 16–20; TEMP 36.4–39.4; O2SAT 91–97; BMI 26.6
--- NOTE | 2022-07-18 05:18 | PC.NURSE ---
BED SCALE DOESN'T WORK AND PT STATED SHES TO WEAK TO STAND.
[2022-07-18 05:29] LABS: POC Glucose,Bedside 132 (70-110)
--- NOTE | 2022-07-18 05:39 | PC.NURSE ---
pt reported feeling too weak to stand t/o the shift. pt had a fever of 102.6, controlled at 98.6 with Tylenol and cooling precautions. no c/o TILLMAN this shift. CB in reach.
[2022-07-18 06:26] LABS: Basophils % 0.5 % (0.1-2.0); Eosinophils % 0.1 % (0.1-12.0); Hematocrit 36.8 % (37.0-47.0); Hemoglobin 12.1 g/dL (12.2-16.2); Lymphocytes # 0.7 K/mm3 (0.7-4.5); Lymphocytes % 8.7 % (10-50); Mean Corpuscular HGB Conc 32.9 g/dL (31.8-35.4); Mean Corpuscular Hemoglobin 30.1 pg (27.0-31.2); Mean Corpuscular Volume 91.5 fl (81-99); Mean Platelet Volume 7.9 fl (7.4-10.4); Monocytes # 0.5 K/mm3 (0.1-1.0); Monocytes % 6.7 % (1.7-9.3); Neutrophils # 6.5 K/mm3 (1.8-7.8); Platelet Count 160 K/mm3 (142-424); Red Blood Count 4.02 M/mm3 (4.20-5.40); White Blood Count 7.8 K/mm3 (4.8-10.8)
[2022-07-18 06:30] LABS: Chloride 98 mmol/L (98-107); Sodium 137 mmol/L (136-145)
[2022-07-18 06:31] LABS: Potassium 3.4 mmoL/L (3.5-5.1)
[2022-07-18 06:33] LABS: Blood Urea Nitrogen 13 mg/dl (7-17); Creatinine Clearance Estimated 60 mL/min (50-200); Estimated Glomerular Filt Rate 82 ml/min (>60); GFR (African American) 99 ML/MIN (>60)
[2022-07-18 06:34] LABS: Anion Gap 12.4 mEq/L (5-15); Calcium 8.3 mg/dl (8.4-10.2); Carbon Dioxide 30 mmol/L (22.0-30.0); Glucose 137 mg/dl (74-100)
--- NOTE | 2022-07-18 08:21 | EXP.ACUTE.PN ---
Subjective *Date: 07/18/22 *Time: 09:03 Interval history: Patient states she is not feeling well this morning. She is running a fever of 103. She states her head is killing her. She denies any abdominal or back pain. She states she tried to eat some breakfast and she is not sure if she slept during the night. Medical Exam Vital signs and Labs for Last 24 Hours: Temp Pulse Resp BP Pulse Ox 103 F H 95 H 18 150/57 H 97 07/18/22 07:27 07/18/22 07:27 07/18/22 07:27 07/18/22 07:27 07/18/22 07:27 Laboratory Results - last 24 hr 07/17/22 11:46: POC Glucose 243 H 07/17/22 16:12: POC Glucose 187 H 07/17/22 20:11: POC Glucose 159 H 07/18/22 05:00: POC Glucose 132 H 07/18/22 05:55: WBC 7.8, RBC 4.02 L, Hgb 12.1 L, Hct 36.8 L, MCV 91.5, MCH 30.1, MCHC 32.9, RDW 13.0, Plt Count 160, MPV 7.9, Neut % (Auto) 84.0 H, Lymph % (Auto) 8.7 L, [place] % (Auto) 6.7, Eos % (Auto) 0.1, Baso % (Auto) 0.5, Neut # (Auto) 6.5, Lymph # (Auto) 0.7, [place] # (Auto) 0.5, Eos # (Auto) 0.0, Baso # (Auto) 0.0 07/18/22 05:55: Sodium 137, Potassium 3.4 L, Chloride 98, Carbon Dioxide 30, Anion Gap 12.4, BUN 13, Creatinine 0.70, Estimated Creat Clear 60, Estimated GFR 82, Est GFR ( Amer) 99, Glucose 137 H D, Calcium 8.3 L I & O for Labs for Last 24 Hours: Intake & Output 07/15/22 07/16/22 07/17/22 07/18/22 11:59 11:59 11:59 11:59 Intake Total 240 / 240 1519 / 1519 Output Total 400 / 700 750 / 750 Balance -160 / -460 769 / 769 Weight 166 lb 1.6 oz Microbiology Reports for the Last 24 Hours: Microbiology 07/16/22 22:10 Urine,Clean Catch Urine Culture - Preliminary Gram Negative Rods Comment:: Does not appear to feel well Respiratory: Present CTA bilaterally Cardiac: Present Reg Rate and Rhythm GI: Present soft; Absent distention, tenderness or guarding Extremities: Absent tenderness or edema Skin: Present intact Neuro: Present alert, awake and oriented x 3 Assessment and Plan *Assessment and plan (1) Acute pyelonephritis: Status: Acute Category: Medical Code(s): N10 - Acute pyelonephritis (2) Hydronephrosis due to obstruction of ureter: Status: Acute Category: Medical Code(s): N13.1 - Hydronephrosis with ureteral stricture, not elsewhere classified (3) SIRS (systemic inflammatory response syndrome): Status: Acute Category: Medical Code(s): R65.10 - Systemic inflammatory response syndrome (SIRS) of non-infectious origin without acute organ dysfunction (4) Hyperlipidemia, mixed: Status: Chronic Category: Medical Code(s): E78.2 - Mixed hyperlipidemia (5) Cervical disc disease with myelopathy: Status: Chronic Category: Medical Code(s): M50.00 - Cervical disc disorder with myelopathy, unspecified cervical region (6) CAD (coronary artery disease): Status: Chronic Qualifiers: Associated angina: without angina Coronary Disease-Associated Artery/Lesion type: [place] artery [place] vs. transplanted heart: [place] heart Qualified Code(s): I25.10 - Atherosclerotic heart disease of [place] coronary artery without angina pectoris Category: Medical Code(s): I25.10 - Atherosclerotic heart disease of [place] coronary artery without angina pectoris (7) Type 2 diabetes mellitus with diabetic polyneuropathy, without long-term current use of insulin: Status: Chronic Category: Medical Code(s): E11.42 - Type 2 diabetes mellitus with diabetic polyneuropathy (8) Carotid artery disease: Status: Chronic Qualifiers: Carotid artery disease type: stenosis Laterality: bilateral Qualified Code(s): I65.23 - Occlusion and stenosis of bilateral carotid arteries Category: Medical Code(s): I77.9 - Disorder of arteries and arterioles, unspecified (9) HLD (hyperlipidemia): Status: Chronic Qualifiers: Hyperlipidemia type: mixed
[2022-07-18 11:53] LABS: POC Glucose,Bedside 141 (70-110)
--- NOTE | 2022-07-18 15:24 | PC.NURSE ---
Patient given tylenol and toradol earlier in shift for fever of 103. Fever had broke after medication administration to 98.5. Patient stated she felt much better today than when she was admitted. IV antibiotic cefepime given. Patient able to tolerate liquids with no nausea noted. VS stable and pt remained on room air.
--- NOTE | 2022-07-18 17:01 | PC.NURSE ---
Was alerted patient's temperature was 99. Given tylenol and toradol for headache and to stop fever from spiking again.
[2022-07-18 19:45] LABS: POC Glucose,Bedside 150 (70-110)
[2022-07-18 20:31] LABS: POC Glucose,Bedside 218 (70-110)
[2022-07-19] VITALS (8 sets, daily range): BP systolic 134–193; BP diastolic 71–91; PULSE 73–86; RESP 16–18; TEMP 36.8–37.6; O2SAT 95–97; BMI 26.5
--- NOTE | 2022-07-19 00:01 | PC.NURSE ---
PT IS RESTING IN BED. ALERT AND ORIENTED X4. PT HAS BEEN UP TO THE BSC WITH 1 ASSIST. NO ISSUES WITH VOIDING. PT WAS MEDICATED PER MAR WITH TYLENOL FOR HEADACHE. LUNG SOUNDS CLEAR. ABDOMEN SOFT/NON TENDER WITH ACTIVE BOWEL SOUNDS. WILL CONTINUE TO MONITOR.
[2022-07-19 05:37] LABS: POC Glucose,Bedside 161 (70-110)
--- NOTE | 2022-07-19 08:49 | EXP.ACUTE.PN ---
Subjective *Date: 07/19/22 *Time: 08:49 Interval history: Patient feels a little better this morning, less headache. Medical Exam Vital signs and Labs for Last 24 Hours: Temp Pulse Resp BP Pulse Ox 98.8 F 86 18 193/84 H 95 07/19/22 07:33 07/19/22 07:33 07/19/22 07:33 07/19/22 07:33 07/19/22 07:33 Laboratory Results - last 24 hr 07/18/22 11:43: POC Glucose 141 H 07/18/22 16:22: POC Glucose 150 H 07/18/22 20:22: POC Glucose 218 H 07/19/22 05:19: POC Glucose 161 H I & O for Labs for Last 24 Hours: Intake & Output 07/16/22 07/17/22 07/18/22 07/19/22 23:59 23:59 23:59 23:59 Intake Total 963 / 963 2399 / 2399 1108 / 1108 Output Total 1000 / 1000 1050 / 1050 200 / 200 Balance -37 / -37 1349 / 1349 908 / 908 Weight 166 lb 1.6 oz 166 lb 0.835 oz 165 lb 4 oz Microbiology Reports for the Last 24 Hours: Microbiology 07/16/22 22:10 Blood Blood Culture - Preliminary NO GROWTH AFTER 48 HOURS 07/16/22 22:10 Blood Blood Culture - Preliminary NO GROWTH AFTER 48 HOURS 07/16/22 22:10 Urine,Clean Catch Urine Culture - Preliminary Gram Negative Rods Comment:: Does not appear to feel well Respiratory: Present CTA bilaterally Cardiac: Present Reg Rate and Rhythm GI: Present soft; Absent distention, tenderness or guarding Extremities: Absent tenderness or edema Skin: Present intact Neuro: Present alert, awake and oriented x 3 Assessment and Plan *Assessment and plan (1) Acute pyelonephritis: Status: Acute Category: Medical Code(s): N10 - Acute pyelonephritis (2) Hydronephrosis due to obstruction of ureter: Status: Acute Category: Medical Code(s): N13.1 - Hydronephrosis with ureteral stricture, not elsewhere classified (3) SIRS (systemic inflammatory response syndrome): Status: Acute Category: Medical Code(s): R65.10 - Systemic inflammatory response syndrome (SIRS) of non-infectious origin without acute organ dysfunction (4) Hyperlipidemia, mixed: Status: Chronic Category: Medical Code(s): E78.2 - Mixed hyperlipidemia (5) Cervical disc disease with myelopathy: Status: Chronic Category: Medical Code(s): M50.00 - Cervical disc disorder with myelopathy, unspecified cervical region (6) CAD (coronary artery disease): Status: Chronic Qualifiers: Coronary Disease-Associated Artery/Lesion type: [place] artery [place] vs. transplanted heart: [place] heart Associated angina: without angina Qualified Code(s): I25.10 - Atherosclerotic heart disease of [place] coronary artery without angina pectoris Category: Medical Code(s): I25.10 - Atherosclerotic heart disease of [place] coronary artery without angina pectoris (7) Type 2 diabetes mellitus with diabetic polyneuropathy, without long-term current use of insulin: Status: Chronic Category: Medical Code(s): E11.42 - Type 2 diabetes mellitus with diabetic polyneuropathy (8) Carotid artery disease: Status: Chronic Qualifiers: Carotid artery disease type: stenosis Laterality: bilateral Qualified Code(s): I65.23 - Occlusion and stenosis of bilateral carotid arteries Category: Medical Code(s): I77.9 - Disorder of arteries and arterioles, unspecified (9) HLD (hyperlipidemia): Status: Chronic Qualifiers: Hyperlipidemia type: mixed hyperlipidemia Qualified Code(s): E78.2 - Mixed hyperlipidemia Category: Medical Code(s): E78.5 - Hyperlipidemia, unspecified (10) HTN (hypertension): Status: Chronic Qualifiers: Hypertension type: essential hypertension Qualified Code(s): I10 - Essential (primary) hypertension Category: Medical Code(s): I10 - Essential (primary) hypertension Plan Urine culture is still pending, patient better after lee
[2022-07-19 11:39] LABS: POC Glucose,Bedside 212 (70-110)
[2022-07-19 16:51] LABS: POC Glucose,Bedside 157 (70-110)
--- NOTE | 2022-07-19 18:40 | PC.NURSE ---
pt has done well today. She has ambulated to the bathroom and chair multiple times independently. Gait is steady and pt denies any dizziness. has a low grade temp of 99.6 which was relieved with tylenol and is now 98.3 pt reports small amount of blood in urine but denies any pain with urination.
[2022-07-19 20:46] LABS: POC Glucose,Bedside 217 (70-110)
[2022-07-20] VITALS (8 sets, daily range): BP systolic 153–190; BP diastolic 56–87; PULSE 68–89; RESP 16–22; TEMP 36.4–37.9; O2SAT 94–96; BMI 26.5
--- NOTE | 2022-07-20 04:34 | PC.NURSE ---
Pt aox4. No c/o voiced to staff. Able to walk to BR independently. Total of 700ml UO thus far this shift. Call light within reach.
[2022-07-20 07:02] LABS: POC Glucose,Bedside 211 (70-110)
[2022-07-20 07:52] LABS: Basophils % 0.4 % (0.1-2.0); Eosinophils % 0.3 % (0.1-12.0); Hematocrit 32.6 % (37.0-47.0); Hemoglobin 10.9 g/dL (12.2-16.2); Lymphocytes # 0.8 K/mm3 (0.7-4.5); Lymphocytes % 14.1 % (10-50); Mean Corpuscular HGB Conc 33.5 g/dL (31.8-35.4); Mean Corpuscular Hemoglobin 30.2 pg (27.0-31.2); Mean Corpuscular Volume 90.2 fl (81-99); Mean Platelet Volume 8.7 fl (7.4-10.4); Monocytes # 0.5 K/mm3 (0.1-1.0); Monocytes % 9.3 % (1.7-9.3); Neutrophils % 75.8 % (37.0-80.0); Platelet Count 188 K/mm3 (142-424); Red Blood Count 3.61 M/mm3 (4.20-5.40); Red Cell Distribution Width 13.1 % (11.5-17.5); White Blood Count 5.3 K/mm3 (4.8-10.8)
[2022-07-20 07:57] LABS: Chloride 99 mmol/L (98-107); Sodium 136 mmol/L (136-145)
[2022-07-20 07:58] LABS: Potassium 3.1 mmoL/L (3.5-5.1)
[2022-07-20 08:01] LABS: Anion Gap 13.1 mEq/L (5-15); Blood Urea Nitrogen 9 mg/dl (7-17); Calcium 8.2 mg/dl (8.4-10.2); Carbon Dioxide 27 mmol/L (22.0-30.0); Creatinine Clearance Estimated 59 mL/min (50-200); Estimated Glomerular Filt Rate 98 ml/min (>60); GFR (African American) 119 ML/MIN (>60); Glucose 192 mg/dl (74-100)
--- NOTE | 2022-07-20 11:15 | EXP.ACUTE.PN ---
Subjective *Date: 07/20/22 *Time: 11:15 Interval history: Patient states she did not sleep well last night, otherwise no new complaints. Medical Exam Vital signs and Labs for Last 24 Hours: Temp Pulse Resp BP Pulse Ox 99.7 F H 70 22 190/71 H 95 07/20/22 09:22 07/20/22 09:22 07/20/22 09:22 07/20/22 09:22 07/20/22 09:22 Laboratory Results - last 24 hr 07/19/22 11:31: POC Glucose 212 H 07/19/22 16:36: POC Glucose 157 H 07/19/22 20:33: POC Glucose 217 H 07/20/22 06:38: WBC 5.3 D, RBC 3.61 L, Hgb 10.9 L, Hct 32.6 L, MCV 90.2, MCH 30.2, MCHC 33.5, RDW 13.1, Plt Count 188, MPV 8.7, Neut % (Auto) 75.8, Lymph % (Auto) 14.1, [place] % (Auto) 9.3, Eos % (Auto) 0.3, Baso % (Auto) 0.4, Neut # (Auto) 4.0, Lymph # (Auto) 0.8, [place] # (Auto) 0.5, Eos # (Auto) 0.0, Baso # (Auto) 0.0 07/20/22 06:38: Sodium 136, Potassium 3.1 L, Chloride 99, Carbon Dioxide 27, Anion Gap 13.1, BUN 9 D, Creatinine 0.60, Estimated Creat Clear 59, Estimated GFR 98, Est GFR ( Amer) 119 D, Glucose 192 H, Calcium 8.2 L 07/20/22 06:55: POC Glucose 211 H I & O for Labs for Last 24 Hours: Intake & Output 07/17/22 07/18/22 07/19/22 07/20/22 23:59 23:59 23:59 23:59 Intake Total 963 / 963 2399 / 2399 1468 / 1588 120 / 120 Output Total 1000 / 1000 1050 / 1050 1050 / 1050 600 / 600 Balance -37 / -37 1349 / 1349 418 / 538 -480 / -480 Weight 166 lb 1.6 oz 166 lb 0.835 oz 165 lb 4 oz 165 lb Microbiology Reports for the Last 24 Hours: Microbiology 07/16/22 22:10 Urine,Clean Catch Urine Culture - Final Pseudomonas aeruginosa Constitutional: Present no acute distress Respiratory: Present CTA bilaterally Cardiac: Present Reg Rate and Rhythm GI: Present soft; Absent distention, tenderness or guarding Extremities: Absent tenderness or edema Skin: Present intact Neuro: Present alert, awake and oriented x 3 Assessment and Plan *Assessment and plan (1) Acute pyelonephritis: Status: Acute Category: Medical Code(s): N10 - Acute pyelonephritis (2) Hydronephrosis due to obstruction of ureter: Status: Acute Category: Medical Code(s): N13.1 - Hydronephrosis with ureteral stricture, not elsewhere classified (3) SIRS (systemic inflammatory response syndrome): Status: Acute Category: Medical Code(s): R65.10 - Systemic inflammatory response syndrome (SIRS) of non-infectious origin without acute organ dysfunction (4) Hyperlipidemia, mixed: Status: Chronic Category: Medical Code(s): E78.2 - Mixed hyperlipidemia (5) Cervical disc disease with myelopathy: Status: Chronic Category: Medical Code(s): M50.00 - Cervical disc disorder with myelopathy, unspecified cervical region (6) CAD (coronary artery disease): Status: Chronic Qualifiers: Coronary Disease-Associated Artery/Lesion type: [place] artery [place] vs. transplanted heart: [place] heart Associated angina: without angina Qualified Code(s): I25.10 - Atherosclerotic heart disease of [place] coronary artery without angina pectoris Category: Medical Code(s): I25.10 - Atherosclerotic heart disease of [place] coronary artery without angina pectoris (7) Type 2 diabetes mellitus with diabetic polyneuropathy, without long-term current use of insulin: Status: Chronic Category: Medical Code(s): E11.42 - Type 2 diabetes mellitus with diabetic polyneuropathy (8) Carotid artery disease: Status: Chronic Qualifiers: Carotid artery disease type: stenosis Laterality: bilateral Qualified Code(s): I65.23 - Occlusion and stenosis of bilateral carotid arteries Category: Medical Code(s): I77.9 - Disorder of arteries and arterioles, unspecified (9) HLD (hyperlipidemia): Status: Chronic Qualifiers: Hyperlipidemia type: mixed hyperlipidemia Qualified Code(s): E78.2 - Mixed hyperlipidemia Category:
--- NOTE | 2022-07-20 11:51 | PC.NURSE ---
notified senior warehouse clerk of PICC insertion order
[2022-07-20 13:14] LABS: POC Glucose,Bedside 150 (70-110)
[2022-07-20 16:15] LABS: POC Glucose,Bedside 187 (70-110)
--- NOTE | 2022-07-20 18:24 | PC.NURSE ---
pt has been weaker today. She reports having a restless night with multiple trips to the bathroom. C/o generalized weakness in her legs. pt will be getting a PICC placed tomorrow per MD order. She reports having adequate support @ home. pt continues to spike fevers on and off but is managed well with tylenol. no c/o soa. no edema present.
--- NOTE | 2022-07-20 18:27 | PC.NURSE ---
tolerating po intake well
[2022-07-20 21:08] LABS: POC Glucose,Bedside 216 (70-110)
[2022-07-21] VITALS: BP 101/75; PULSE 76; RESP 17; TEMP 38.3; O2SAT 95
[2022-07-21 03:55] VITALS: BP 148/76; PULSE 76; RESP 17; TEMP 36.8; O2SAT 94
[2022-07-21 05:00] VITALS: BMI 26.2
--- NOTE | 2022-07-21 05:32 | PC.NURSE ---
NO ACUTE CHANGES SINCE PREVIOUS ASSESSMENT. LUNG SOUNDS ARE CLEAR BILATERALLY. TOLERATING ROOM AIR WELL. TURNING IN BED INDEPENDENTLY. NO C/O N/V/D OR ABD PAIN. AT MIDNIGHT PT STARTED TO SPIKE A FEVER SO PT WAS MEDICATED PER DEC FOR FEVER WITH ADEQUATE RESULTS. VSS. CALL [facility] WITHIN REACH.
[2022-07-21 06:06] LABS: POC Glucose,Bedside 185 (70-110)
[2022-07-21 06:28] LABS: Basophils % 0.8 % (0.1-2.0); Eosinophils # 0.1 K/mm3 (0.0-0.4); Eosinophils % 1.6 % (0.1-12.0); Hematocrit 34.4 % (37.0-47.0); Hemoglobin 11.5 g/dL (12.2-16.2); Lymphocytes # 0.9 K/mm3 (0.7-4.5); Lymphocytes % 16.9 % (10-50); Mean Corpuscular HGB Conc 33.3 g/dL (31.8-35.4); Mean Corpuscular Hemoglobin 30.1 pg (27.0-31.2); Mean Corpuscular Volume 90.3 fl (81-99); Mean Platelet Volume 8.3 fl (7.4-10.4); Monocytes # 0.4 K/mm3 (0.1-1.0); Monocytes % 7.6 % (1.7-9.3); Platelet Count 225 K/mm3 (142-424); Red Blood Count 3.81 M/mm3 (4.20-5.40); Red Cell Distribution Width 13.2 % (11.5-17.5); White Blood Count 5.5 K/mm3 (4.8-10.8)
[2022-07-21 06:40] LABS: Chloride 101 mmol/L (98-107); Sodium 139 mmol/L (136-145)
[2022-07-21 06:41] LABS: Potassium 3.9 mmoL/L (3.5-5.1)
[2022-07-21 06:43] LABS: Blood Urea Nitrogen 11 mg/dl (7-17); Creatinine Clearance Estimated 58 mL/min (50-200); Estimated Glomerular Filt Rate 98 ml/min (>60); GFR (African American) 119 ML/MIN (>60)
[2022-07-21 06:44] LABS: Anion Gap 12.9 mEq/L (5-15); Calcium 8.5 mg/dl (8.4-10.2); Carbon Dioxide 29 mmol/L (22.0-30.0); Glucose 186 mg/dl (74-100)
--- NOTE | 2022-07-21 07:54 | EXP.PHA.PN ---
Subjective *Date: 07/21/22 *Time: 07:54 Medical Exam Vital signs and Labs for Last 24 Hours: Temp Pulse Resp BP Pulse Ox 98.2 F 76 17 148/76 H 94 L 07/21/22 03:55 07/21/22 03:55 07/21/22 03:55 07/21/22 03:55 07/21/22 03:55 Laboratory Results - last 24 hr 07/20/22 06:38: WBC 5.3 D, RBC 3.61 L, Hgb 10.9 L, Hct 32.6 L, MCV 90.2, MCH 30.2, MCHC 33.5, RDW 13.1, Plt Count 188, MPV 8.7, Neut % (Auto) 75.8, Lymph % (Auto) 14.1, [place] % (Auto) 9.3, Eos % (Auto) 0.3, Baso % (Auto) 0.4, Neut # (Auto) 4.0, Lymph # (Auto) 0.8, [place] # (Auto) 0.5, Eos # (Auto) 0.0, Baso # (Auto) 0.0 07/20/22 06:38: Sodium 136, Potassium 3.1 L, Chloride 99, Carbon Dioxide 27, Anion Gap 13.1, BUN 9 D, Creatinine 0.60, Estimated Creat Clear 59, Estimated GFR 98, Est GFR ( Amer) 119 D, Glucose 192 H, Calcium 8.2 L 07/20/22 11:32: POC Glucose 150 H 07/20/22 16:04: POC Glucose 187 H 07/20/22 20:45: POC Glucose 216 H 07/21/22 05:49: POC Glucose 185 H 07/21/22 05:51: WBC 5.5, RBC 3.81 L, Hgb 11.5 L, Hct 34.4 L, MCV 90.3, MCH 30.1, MCHC 33.3, RDW 13.2, Plt Count 225, MPV 8.3, Neut % (Auto) 73.0, Lymph % (Auto) 16.9, [place] % (Auto) 7.6, Eos % (Auto) 1.6, Baso % (Auto) 0.8, Neut # (Auto) 4.0, Lymph # (Auto) 0.9, [place] # (Auto) 0.4, Eos # (Auto) 0.1, Baso # (Auto) 0.0 07/21/22 05:51: Sodium 139, Potassium 3.9 D, Chloride 101, Carbon Dioxide 29, Anion Gap 12.9, BUN 11, Creatinine 0.60, Estimated Creat Clear 58, Estimated GFR 98, Est GFR ( Amer) 119, Glucose 186 H, Calcium 8.5 I & O for Labs for Last 24 Hours: Intake & Output 07/18/22 07/19/22 07/20/22 07/21/22 23:59 23:59 23:59 23:59 Intake Total 2399 / 2399 1468 / 1588 840 / 840 120 / 120 Output Total 1050 / 1050 1050 / 1050 1999 / 1999 450 / 450 Balance 1349 / 1349 418 / 538 -1160 / -1160 -330 / -330 Weight 75.32 kg 74.956 kg 74.843 kg 73.936 kg The patient's infection will respond to the chosen ABx?: Yes Is the patient receiving the right drug, dose, and route?: Yes Could a more targeted ABx be ordered?: No
[2022-07-21 08:00] VITALS: BP 177/83; PULSE 79; RESP 20; TEMP 36.9; O2SAT 96
--- NOTE | 2022-07-21 08:20 | EXP.PN ---
Subjective *Date: 07/21/22 *Time: 08:52 Interval history: Patient states she is feeling much better since admission. She is able to eat without difficulty. She denies any pain. She has been up to the bathroom numerous times. She is voiding QS. Bowels have moved. Headache is just about all gone. Exam Data for Last 24 hours Vital signs and Labs for Last 24 Hours: Temp Pulse Resp BP Pulse Ox 98.2 F 76 17 148/76 H 94 L 07/21/22 03:55 07/21/22 03:55 07/21/22 03:55 07/21/22 03:55 07/21/22 03:55 Laboratory Results - last 24 hr 07/20/22 11:32: POC Glucose 150 H 07/20/22 16:04: POC Glucose 187 H 07/20/22 20:45: POC Glucose 216 H 07/21/22 05:49: POC Glucose 185 H 07/21/22 05:51: WBC 5.5, RBC 3.81 L, Hgb 11.5 L, Hct 34.4 L, MCV 90.3, MCH 30.1, MCHC 33.3, RDW 13.2, Plt Count 225, MPV 8.3, Neut % (Auto) 73.0, Lymph % (Auto) 16.9, [place] % (Auto) 7.6, Eos % (Auto) 1.6, Baso % (Auto) 0.8, Neut # (Auto) 4.0, Lymph # (Auto) 0.9, [place] # (Auto) 0.4, Eos # (Auto) 0.1, Baso # (Auto) 0.0 07/21/22 05:51: Sodium 139, Potassium 3.9 D, Chloride 101, Carbon Dioxide 29, Anion Gap 12.9, BUN 11, Creatinine 0.60, Estimated Creat Clear 58, Estimated GFR 98, Est GFR ( Amer) 119, Glucose 186 H, Calcium 8.5 I & O for Last 24 hours: Intake & Output 07/18/22 07/19/22 07/20/22 07/21/22 11:59 11:59 11:59 11:59 Intake Total 1519 / 1519 2711 / 2711 480 / 480 840 / 840 Output Total 1350 / 1350 650 / 650 1300 / 1300 1850 / 1850 Balance 169 / 169 2061 / 2060 -820 / -820 -1010 / -1010 Weight 165 lb 4 oz 165 lb 163 lb Constitutional Constitutional: no acute distress Comments: Observed her walking to the bathroom and she did well. *Routine Respiratory Exam Respiratory: Present CTA bilaterally (Anteriorly and posteriorly) *Routine Cardiovascular Exam Cardiovascular: Present RRR *Routine Abdominal Exam Abdominal: Present soft and normoactive bowel sounds; Absent tenderness or distended *Routine Extremities Exam Extremities: Present full ROM; Absent edema or calf tenderness *Routine Neurological Exam Neurological: Present alert, oriented X3 and tremors Assessment and Plan *Assessment and plan (1) Urinary tract infection due to Pseudomonas aeruginosa: Status: Acute Category: Medical Code(s): N39.0 - Urinary tract infection, site not specified; B96.5 - Pseudomonas (aeruginosa) (mallei) (pseudomallei) as the cause of diseases classified elsewhere (2) Diabetes mellitus: Status: Chronic Qualifiers: Diabetes mellitus complication detail: with polyneuropathy Diabetes mellitus complication status: with neurologic complications Diabetes mellitus correction insulin use: without buttermaker continuous churn use Diabetes mellitus type: type 2 Qualified Code(s): E11.42 - Type 2 diabetes mellitus with diabetic polyneuropathy Category: Medical Code(s): E11.9 - Type 2 diabetes mellitus without complications (3) Acute cystitis without hematuria: Status: Acute Category: Medical Code(s): N30.00 - Acute cystitis without hematuria (4) CAD (coronary artery disease): Status: Chronic Qualifiers: Associated angina: without angina Coronary Disease-Associated Artery/Lesion type: [place] artery [place] vs. transplanted heart: [place] heart Qualified Code(s): I25.10 - Atherosclerotic heart disease of [place] coronary artery without angina pectoris Category: Medical Code(s): I25.10 - Atherosclerotic heart disease of [place] coronary artery without angina pectoris (5) Tremors of nervous system: Status: Chronic Category: Medical Code(s): R25.1 - Tremor, unspecified (6) Migraine: Status: Acute Qualifiers: Intractability: not intractable Migraine type: other Status migrainosus presence: without status migrainosus Qualified Code(s): G43.809 - Other migraine, not intractable, without status migrainosus Category: Medical Code(s): G43.
--- NOTE | 2022-07-21 09:30 | EXP.PHA.CONS ---
Pharmacy Consult Date: 07/21/22 Time: 09:30 Referring provider: DR. GOULD Reason for Consult:: GENTAMICIN DOSING FOR PSEUDOMONAS + UTI Allergies Allergy/AdvReac Type Severity Reaction Status Date / Time adhesive Allergy Unknown ITCHING Verified 07/18/22 07:37 Sulfa (Sulfonamide Allergy Unknown Unknown Verified 07/18/22 07:37 Antibiotics) allergy [SULFA (SULFONAMIDE reaction ANTIBIOTICS)] Home Medications Medication Instructions Recorded Confirmed Type albuterol sulfate 90 mcg/actuation 1 puff inhalation DAILY Breathing 06/07/18 07/17/22 History aerosol inhaler problems 25 days budesonide-formoterol HFA 160 1 puff inhalation DAILY Breathing 06/28/19 07/17/22 History mcg-4.5 mcg/actuation aerosol problems inhaler montelukast 10 mg tablet 10 mg PO DAILY Breathing problems 07/04/19 07/17/22 History 90 days #90 tabs diltiazem HCl 120 mg 120 mg PO BID heart rate 90 days 07/25/19 07/17/22 History capsule,extended release 24 hr #180 caps rosuvastatin 5 mg tablet 5 mg PO DAILY Cholesterol 08/22/19 07/17/22 History doxazosin 8 mg tablet 8 mg PO DAILY blood pressure 06/13/20 07/17/22 History paroxetine HCl 40 mg tablet 40 mg PO DAILY Depression 02/25/21 07/17/22 History oxazepam 10 mg capsule 10 mg PO BID Anxiety 06/11/21 07/17/22 History furosemide 20 mg tablet 20 mg PO DAILY edema 02/24/22 07/17/22 History metformin 1,000 mg tablet 1,000 mg PO BID Diabetes 90 days 02/24/22 07/17/22 History #180 tabs buspirone 15 mg tablet 15 mg PO BID Anxiety 07/11/22 07/17/22 History metoprolol tartrate 25 mg tablet 25 mg PO BID blood pressure 07/11/22 07/17/22 History primidone 50 mg tablet 150 mg PO BID Tremors 07/11/22 07/20/22 History losartan 100 1 tab PO DAILY blood pressure 07/17/22 07/17/22 History mg-hydrochlorothiazide 25 mg tablet New Prescriptions to Start Prescriptions: Height: 1.68 m Weight: 73.936 kg Laboratory Results:: Laboratory Results - last 24 hr 07/20/22 11:32: POC Glucose 150 H 07/20/22 16:04: POC Glucose 187 H 07/20/22 20:45: POC Glucose 216 H 07/21/22 05:49: POC Glucose 185 H 07/21/22 05:51: WBC 5.5, RBC 3.81 L, Hgb 11.5 L, Hct 34.4 L, MCV 90.3, MCH 30.1, MCHC 33.3, RDW 13.2, Plt Count 225, MPV 8.3, Neut % (Auto) 73.0, Lymph % (Auto) 16.9, [place] % (Auto) 7.6, Eos % (Auto) 1.6, Baso % (Auto) 0.8, Neut # (Auto) 4.0, Lymph # (Auto) 0.9, [place] # (Auto) 0.4, Eos # (Auto) 0.1, Baso # (Auto) 0.0 07/21/22 05:51: Sodium 139, Potassium 3.9 D, Chloride 101, Carbon Dioxide 29, Anion Gap 12.9, BUN 11, Creatinine 0.60, Estimated Creat Clear 58, Estimated GFR 98, Est GFR ( Amer) 119, Glucose 186 H, Calcium 8.5 Medical History: Medical History (Updated 07/20/22 @ 11:19 by Bipin Gould MD) Abnormal EKG Anxiety Asthma Carotid artery disease IVANNA (cerebral atherosclerosis) Cervical disc disease with myelopathy Depressed Diabetes Diverticulosis Dizziness Dyspnea Equivocal stress test Fatigue GERD (gastroesophageal reflux disease) History of left heart catheterization HLD (hyperlipidemia) Holter monitor, abnormal HTN (hypertension) Hyperlipidemia, mixed Iron deficiency anemia Left carotid bruit Mitral valve regurgitation Obstructive sleep apnea Pulmonary HTN SVT (supraventricular tachycardia) Syncope Assessment and Plan Assessment and plan all Dx Assessment and Plan for all problems:: Pharmacokinetic dosing service Patient: Floor: Age: 72 yo Serum creatinine: 1 mg/dL (0.6 MG/DL ACTUAL) Height: 66.1 Inches Weight (kg): 74 Assessment: IBW (kg): 59.53 Dosing wt(kg): 59.5 Estimated Creatinine clearance (ml/min): 47.1 CRCL method: Cockcroft and Gault using ibw(default). Drug selected: Gentamicin Loading dose (mg): 0 Vd (liters): 17.8 (factor used: 0.3 L/kg) Osman (hr-1): 0.159 Half life (hrs): 4.36 Recommended dose: 280 mg Interval: 24 hrs Infusion time (hrs): 1 Predicted peak (mcg/mL)
--- NOTE | 2022-07-21 11:22 | XR_ITS ---
FINAL REPORT CLINICAL HISTORY: Confirm PICC line placement COMPARISON: 07/16/2022 FINDINGS: Left-sided PICC line terminates in the lower SVC. The heart size is normal. The mediastinum is within normal limits. There is mild left base atelectasis. There is no pleural effusion. There is no pneumothorax. The bony thorax is intact. IMPRESSION: Left-sided PICC line terminates in the lower SVC. Reviewed, Interpreted and Dictated by Joni Gasca III, MD Transcribed by Taiwo Yates Authenticated and [facility]
[2022-07-21 12:00] VITALS: BP 146/78; PULSE 66; RESP 18; TEMP 36.3; O2SAT 95
[2022-07-21 12:12] LABS: POC Glucose,Bedside 163 (70-110)
--- NOTE | 2022-07-21 13:53 | DIET.NUTRFU ---
Patient dislikes glucerna, discontinued. She is improving on meal intake intake with 75% at breakfast and slightly greater than 50% with lunch. kitchen notified
[2022-07-21 14:37] LABS: Gentamicin,Random 6.1 ug/ml
[2022-07-21 16:00] VITALS: BP 173/72; PULSE 79; RESP 19; TEMP 37.1; O2SAT 96
[2022-07-21 16:18] LABS: POC Glucose,Bedside 195 (70-110)
--- NOTE | 2022-07-21 18:13 | PC.NURSE ---
PICC placed to TAYLA. VSS. No c/o of changes form previous assessment. CB in reach. NAD.
[2022-07-21 20:00] VITALS: BP 186/92; PULSE 75; RESP 16; TEMP 37.2; O2SAT 95
[2022-07-21 23:30] LABS: Gentamicin,Random 1.5 ug/ml
[2022-07-22 04:00] VITALS: BP 162/88; PULSE 63; RESP 16; TEMP 36.8; O2SAT 98
[2022-07-22 05:00] VITALS: BMI 26.2
--- NOTE | 2022-07-22 05:07 | PC.NURSE ---
pt had no complaints this shift. has used bsc independently. remains on RA. PICC line to TAYLA patent, flushes well.
[2022-07-22 08:08] VITALS: BP 170/68; PULSE 79; RESP 18; TEMP 36.7; O2SAT 98
--- NOTE | 2022-07-22 08:34 | EXP.PN ---
Subjective *Date: 07/22/22 *Time: 09:17 Interval history: Feels like she is ready to go home. She had a PICC line placed yesterday. She has been eating/drinking without problems. Bowels did move this morning. She is voiding QS. Minimal headache relieved with Tylenol p.o. She has been ambulating in the room. Exam Data for Last 24 hours Vital signs and Labs for Last 24 Hours: Temp Pulse Resp BP Pulse Ox 98.1 F 79 18 170/68 H 98 07/22/22 08:08 07/22/22 08:08 07/22/22 08:08 07/22/22 08:08 07/22/22 08:08 Laboratory Results - last 24 hr 07/21/22 11:56: POC Glucose 163 H 07/21/22 14:15: Random Gentamicin 6.1 07/21/22 15:55: POC Glucose 195 H 07/21/22 22:37: Random Gentamicin 1.5 I & O for Last 24 hours: Intake & Output 07/19/22 07/20/22 07/21/22 07/22/22 11:59 11:59 11:59 11:59 Intake Total 2711 / 2711 480 / 480 1200 / 1200 790 / 790 Output Total 650 / 650 1300 / 1300 1850 / 1850 2950 / 2950 Balance 206 / 2060 -820 / -820 -650 / -650 -2160 / -2160 Weight 165 lb 4 oz 165 lb 163 lb 163 lb Microbiology Reports for the Last 24 Hours: Microbiology 07/16/22 22:10 Blood Blood Culture - Final NO GROWTH AFTER 5 DAYS 07/16/22 22:10 Blood Blood Culture - Final NO GROWTH AFTER 5 DAYS Constitutional Constitutional: no acute distress *Routine Respiratory Exam Respiratory: Present CTA bilaterally (Anteriorly and posteriorly) *Routine Cardiovascular Exam Cardiovascular: Present RRR *Routine Abdominal Exam Abdominal: Present soft and normoactive bowel sounds; Absent tenderness or distended *Routine Extremities Exam Extremities: Absent edema or calf tenderness *Routine Neurological Exam Neurological: Present alert and oriented X3 Assessment and Plan *Assessment and plan (1) Urinary tract infection due to Pseudomonas aeruginosa: Status: Acute Category: Medical Code(s): N39.0 - Urinary tract infection, site not specified; B96.5 - Pseudomonas (aeruginosa) (mallei) (pseudomallei) as the cause of diseases classified elsewhere (2) Acute pyelonephritis: Status: Acute Category: Medical Code(s): N10 - Acute pyelonephritis (3) Hydronephrosis due to obstruction of ureter: Status: Acute Category: Medical Code(s): N13.1 - Hydronephrosis with ureteral stricture, not elsewhere classified (4) SIRS (systemic inflammatory response syndrome): Status: Acute Category: Medical Code(s): R65.10 - Systemic inflammatory response syndrome (SIRS) of non-infectious origin without acute organ dysfunction (5) Hyperlipidemia, mixed: Status: Chronic Category: Medical Code(s): E78.2 - Mixed hyperlipidemia (6) Cervical disc disease with myelopathy: Status: Chronic Category: Medical Code(s): M50.00 - Cervical disc disorder with myelopathy, unspecified cervical region (7) Type 2 diabetes mellitus with diabetic polyneuropathy, without long-term current use of insulin: Status: Chronic Category: Medical Code(s): E11.42 - Type 2 diabetes mellitus with diabetic polyneuropathy (8) Carotid artery disease: Status: Chronic Qualifiers: Carotid artery disease type: stenosis Laterality: bilateral Qualified Code(s): I65.23 - Occlusion and stenosis of bilateral carotid arteries Category: Medical Code(s): I77.9 - Disorder of arteries and arterioles, unspecified (9) HLD (hyperlipidemia): Status: Chronic Qualifiers: Hyperlipidemia type: mixed hyperlipidemia Qualified Code(s): E78.2 - Mixed hyperlipidemia Category: Medical Code(s): E78.5 - Hyperlipidemia, unspecified (10) HTN (hypertension): Status: Chronic Qualifiers: Hypertension type: essential hypertension Qualified Code(s): I10 - Essential (primary) hypertension Category: Medical Code(s): I10 - E
--- NOTE | 2022-07-22 08:46 | EXP.PHA.CONS ---
Pharmacy Consult Date: 07/22/22 Time: 08:46 Referring provider: DR. HERNANDEZ Reason for Consult:: GENTAMICIN LEVELS Allergies Allergy/AdvReac Type Severity Reaction Status Date / Time adhesive Allergy Unknown ITCHING Verified 07/21/22 16:24 Sulfa (Sulfonamide Allergy Unknown Unknown Verified 07/21/22 16:24 Antibiotics) allergy [SULFA (SULFONAMIDE reaction ANTIBIOTICS)] Home Medications Medication Instructions Recorded Confirmed Type albuterol sulfate 90 mcg/actuation 1 puff inhalation DAILY Breathing 06/07/18 07/21/22 History aerosol inhaler problems 25 days budesonide-formoterol HFA 160 1 puff inhalation DAILY Breathing 06/28/19 07/21/22 History mcg-4.5 mcg/actuation aerosol problems inhaler montelukast 10 mg tablet 10 mg PO DAILY Breathing problems 07/04/19 07/21/22 History 90 days #90 tabs diltiazem HCl 120 mg 120 mg PO BID heart rate 90 days 07/25/19 07/21/22 History capsule,extended release 24 hr #180 caps rosuvastatin 5 mg tablet 5 mg PO DAILY Cholesterol 08/22/19 07/21/22 History doxazosin 8 mg tablet 8 mg PO DAILY blood pressure 06/13/20 07/21/22 History paroxetine HCl 40 mg tablet 40 mg PO DAILY Depression 02/25/21 07/21/22 History oxazepam 10 mg capsule 10 mg PO BID Anxiety 06/11/21 07/21/22 History furosemide 20 mg tablet 20 mg PO DAILY edema 02/24/22 07/21/22 History metformin 1,000 mg tablet 1,000 mg PO BID Diabetes 90 days 02/24/22 07/21/22 History #180 tabs buspirone 15 mg tablet 15 mg PO BID Anxiety 07/11/22 07/21/22 History metoprolol tartrate 25 mg tablet 25 mg PO BID blood pressure 07/11/22 07/21/22 History primidone 50 mg tablet 150 mg PO BID Tremors 07/11/22 07/21/22 History losartan 100 1 tab PO DAILY blood pressure 07/17/22 07/21/22 History mg-hydrochlorothiazide 25 mg tablet New Prescriptions to Start Prescriptions: Height: 1.68 m Weight: 73.936 kg Laboratory Results:: Laboratory Results - last 24 hr 07/21/22 11:56: POC Glucose 163 H 07/21/22 14:15: Random Gentamicin 6.1 07/21/22 15:55: POC Glucose 195 H 07/21/22 22:37: Random Gentamicin 1.5 Medical History: Medical History (Updated 07/21/22 @ 16:27 by Lilo Jin [facility]) Abnormal EKG Anxiety Asthma Carotid artery disease IVANNA (cerebral atherosclerosis) Cervical disc disease with myelopathy Depressed Diabetes Diverticulosis Dizziness Dyspnea Equivocal stress test Fatigue GERD (gastroesophageal reflux disease) History of left heart catheterization HLD (hyperlipidemia) Holter monitor, abnormal HTN (hypertension) Hyperlipidemia, mixed Iron deficiency anemia Left carotid bruit Mitral valve regurgitation Obstructive sleep apnea Pulmonary HTN SVT (supraventricular tachycardia) Syncope Assessment and Plan Assessment and plan all Dx Assessment and Plan for all problems:: PATIENT'S GENTAMICIN LEVELS 4 HR AND 12 HR POST INFUSION WERE 6.1 MCG/ML AND 1.5 MCG/ML, RESPECTIVELY. CALCULATED CMAX WAS 10.31 MCG/ML AND CMIN WAS 0.18 MCG/ML. RECOMMEND PATIENT CONTINUE WITH CURRENT DOSE OF GENTAMICIN 280 MG Q24H AT THIS TIME FOR PSEUDOMONAS UTI.
[2022-07-22 12:56] LABS: POC Glucose,Bedside 230 (70-110)
[2022-07-22 16:00] VITALS: BP 165/79; PULSE 63; RESP 16; TEMP 36.8; O2SAT 96
[2022-07-23 05:58] LABS: POC Glucose,Bedside 121 (70-110)
[2022-07-23 05:58] LABS: POC Glucose,Bedside 171 (70-110)
[2022-07-23 05:58] LABS: POC Glucose,Bedside 197 (70-110)
--- NOTE | 2022-07-23 08:14 | EXP.DC.SUM ---
General Admission date:: 07/17/22 Discharge date: 07/22/22 HPI HPI HPI: Ms. Alex is a 72-year-old female who was seen on Thursday at [facility] by Dr. Gee to have lithotripsy. A stent was placed at that time. She was told to remove the stent at home on Thursday and was sent home on cefdinir. Patient states Thursday evening after removing the stent, she began having right lower back pain and abdominal cramping on the right side. She had feelings of general malaise and weakness and has had decreased appetite and oral intake. She states she has been urinating more frequently and there has been quite a bit of blood. She states she has laid in the bed the past few days and thinks she has had a fever. She presented to the emergency room yesterday and was found to have a fever and pyelonephritis. She was admitted for IV antibiotics and IV fluids. Hospital Course Hospital Course Hospital Course: The patient's abdominal pelvic CT showed severe right hydronephrosis and proximal hydroureter with moderate perinephric stranding and periureteral stranding and ureteral wall thickening concerning for UTI with pyelonephritis. No obstructive stone was evident. The patient was admitted and started on IV antibiotics and IV fluids. She continued to run a fever and had a headache. She denied any abdominal or back pain. She tried to eat but was nauseated. Cefepime was added due to her continued fever. Her urine was growing gram-negative rods. Her blood culture showed no growth at 48 hours. She did improve after the change to cefepime. Her urine culture was positive for Pseudomonas. It was felt she would need IV antibiotics for a total of 14 days, therefore a PICC line was placed. Her potassium was replaced due to hypokalemia and her irbesartan dose was increased due to elevated blood pressure. By 07/21/2022, she was feeling much better and was able to eat and denied any pain. Her headache had almost resolved. Her PICC line was placed and her antibiotics were changed to gentamicin. By 07/22/2022, she was ready to be discharged. She was ambulating and felt much better. She was discharged home on IV antibiotics. Exam Data for Last 24 hours Vital signs and Labs for Last 24 Hours: Temp Pulse Resp BP Pulse Ox 98.3 F 63 16 165/79 H 96 07/22/22 16:00 07/22/22 16:00 07/22/22 16:00 07/22/22 16:00 07/22/22 16:00 Laboratory Results - last 24 hr 07/21/22 20:09: POC Glucose 197 H 07/22/22 05:30: POC Glucose 171 H 07/22/22 12:48: POC Glucose 230 H 07/22/22 16:38: POC Glucose 121 H I & O for Last 24 hours: Intake & Output 07/20/22 07/21/22 07/22/22 07/23/22 11:59 11:59 11:59 11:59 Intake Total 480 / 480 1200 / 1200 1270 / 1270 360 / 360 Output Total 1300 / 1300 1850 / 1850 2950 / 2950 Balance -820 / -820 -650 / -650 -1680 / -1680 360 / 360 Weight 165 lb 163 lb 163 lb Narrative: Constitutional Comments: Does not appear to feel well *Routine HEENT Exam Head: Present normocephalic and atraumatic Eye: Present EOMI and PERRL ENT: Present mucous membranes dry *Routine Neck Exam Neck: Present supple and full ROM *Routine Respiratory Exam Respiratory: Present CTA bilaterally *Routine Cardiovascular Exam Cardiovascular: Present RRR *Routine Abdominal Exam Abdominal: Present soft and normoactive bowel sounds; Absent tenderness *Routine Rectal Exam Rectal:: deferred *Routine Genitalia Exam Genitalia:: deferred *Routine Extremities Exam Extremities: Absent cyanosis, clubbing or edema *Routine Skin Exam Skin: Present intact; Absent erythema *Routine Neurological Exam Neurological: Present alert and oriented X3 Results Data Completed and Pending Labs on day of discharge: Labs from last 24 hours 07/22/22 07/22/22 07/22/22 16:38 12:48 05:30 POC Glucose 121 H 230 H 171 H 07/21/22 20:09 POC Glucose 197 H DS: Diagnosis Discharge Diagnosis (1) Urinary tract infection due to Pseudomo
== END 2022-07-22 17:42 | disposition home or self-care (01) | DRG 690 ==
LOC: ER 07-17 00:31 → 2ND 07-17 03:49
PROVIDERS: Family Medicine; Admitting Provider Family Medicine; Emergency Provider Emergency Medicine; PCP Family Medicine; Visit Provider Family Medicine
DX: N13.6 Pyonephrosis (principal); B96.5 Pseudomonas (aeruginosa) (mallei) (pseudomallei) as the cause of diseases classified elsewhere; E11.40 Type 2 diabetes mellitus with diabetic neuropathy, unspecified; F32.A Depression, unspecified; I25.10 Atherosclerotic heart disease of native coronary artery without angina pectoris; I34.0 Nonrheumatic mitral (valve) insufficiency; I65.29 Occlusion and stenosis of unspecified carotid artery; K21.9 Gastro-esophageal reflux disease without esophagitis; I27.20 Pulmonary hypertension, unspecified; F41.9 Anxiety disorder, unspecified; Z79.84 Long term (current) use of oral hypoglycemic drugs; E78.2 Mixed hyperlipidemia
CPT/HCPCS: 36569; 36415; 71045; 71046; 74176; 80048; 80170; 81001; 82150; 82962; 83605; 83690; 83735; 83880; 84484; 85007; 85025; 85651; 86140; 87040; 87086; 87088; 87186; 93005; 99285; C1751; C9803; J1335; J2405; U0003; U0005

== ENCOUNTER 2022-07-23 11:15 | Outpatient (CLI) | payer MEDICARE, SELFPAY ==
[2022-07-23 11:40] VITALS: BP 140/65; PULSE 68; RESP 18; O2SAT 96
[2022-07-23 12:55] VITALS: BP 119/55; PULSE 65; RESP 18
== END 2022-07-23 12:55 | disposition home or self-care (01) ==
LOC: INF 11:16
PROVIDERS: PCP Family Medicine; Visit Provider Family Medicine
DX: N10 Acute pyelonephritis (principal)
CPT/HCPCS: 96365

== ENCOUNTER 2022-07-24 10:20 | Outpatient (CLI) | payer MEDICARE, SELFPAY ==
[2022-07-24 10:35] VITALS: BP 115/48; PULSE 71; RESP 18; O2SAT 95
[2022-07-24 11:50] VITALS: BP 155/48; PULSE 62; RESP 18
== END 2022-07-24 11:50 | disposition home or self-care (01) ==
LOC: INF 10:21
PROVIDERS: PCP Family Medicine; Visit Provider Family Medicine
DX: N10 Acute pyelonephritis (principal)
CPT/HCPCS: 96365

== ENCOUNTER 2022-07-25 10:34 | Outpatient (CLI) | payer MEDICARE, SELFPAY ==
[2022-07-25 10:42] VITALS: BMI 26.6
[2022-07-25 11:03] LABS: Anion Gap 15.8 mEq/L (5-15); Blood Urea Nitrogen 15 mg/dl (7-17); Carbon Dioxide 29 mmol/L (22.0-30.0); Chloride 97 mmol/L (98-107); Creatinine Clearance Estimated 59 mL/min (50-200); Estimated Glomerular Filt Rate 70 ml/min (>60); GFR (African American) 85 ML/MIN (>60); Glucose 184 mg/dl (74-100); Potassium 3.8 mmoL/L (3.5-5.1); Sodium 138 mmol/L (136-145)
[2022-07-25 11:35] VITALS: BP 135/49; PULSE 63; RESP 18; O2SAT 96
[2022-07-25 13:00] VITALS: BP 138/43; PULSE 63; RESP 18; O2SAT 95
== END 2022-07-25 13:00 | disposition home or self-care (01) ==
LOC: INF 10:35
PROVIDERS: Family Medicine; PCP Family Medicine; Visit Provider Family Medicine
DX: N10 Acute pyelonephritis (principal)
CPT/HCPCS: 80048; 80170; 96365

== ENCOUNTER → 2022-07-26 10:24 | Outpatient (CLI) | payer MEDICARE, SELFPAY ==
[2022-07-26 10:30] VITALS: BP 128/54; PULSE 69; RESP 18; TEMP 36.7; O2SAT 95
== END ==
PROVIDERS: PCP Family Medicine; Visit Provider Family Medicine
DX: N10 Acute pyelonephritis (principal)
CPT/HCPCS: 96365

== ENCOUNTER → 2022-07-27 10:18 | Outpatient (CLI) | payer MEDICARE, SELFPAY ==
[2022-07-27 10:45] VITALS: BP 124/52; PULSE 70; RESP 17; TEMP 36.6; O2SAT 95
[2022-07-27 11:45] VITALS: BP 124/52; PULSE 70; RESP 17; TEMP 36.6; O2SAT 95
== END ==
PROVIDERS: PCP Family Medicine; Visit Provider Family Medicine
DX: N10 Acute pyelonephritis (principal)
CPT/HCPCS: 96365

== ENCOUNTER 2022-07-28 10:56 | Outpatient (CLI) | payer MEDICARE, SELFPAY ==
[2022-07-28 11:32] VITALS: BP 109/55; PULSE 66; RESP 18; TEMP 36.2; O2SAT 99
[2022-07-28 12:02] VITALS: BP 110/60; PULSE 64; RESP 18; O2SAT 98
[2022-07-28 12:40] VITALS: BP 120/48; PULSE 67; RESP 18; O2SAT 99
== END 2022-07-28 12:50 | disposition home or self-care (01) ==
LOC: INF 10:58
PROVIDERS: PCP Family Medicine; Visit Provider Family Medicine
DX: N10 Acute pyelonephritis (principal)
CPT/HCPCS: 96365

== ENCOUNTER 2022-07-29 10:06 | Outpatient (CLI) | payer MEDICARE, SELFPAY ==
[2022-07-29 10:12] VITALS: BMI 27.6
[2022-07-29 10:29] LABS: Chloride 94 mmol/L (98-107); Sodium 138 mmol/L (136-145)
[2022-07-29 10:30] LABS: Potassium 3.3 mmoL/L (3.5-5.1)
[2022-07-29 10:33] LABS: Anion Gap 17.3 mEq/L (5-15); Blood Urea Nitrogen 18 mg/dl (7-17); Calcium 8.8 mg/dl (8.4-10.2); Carbon Dioxide 30 mmol/L (22.0-30.0); Creatinine Clearance Estimated 56 mL/min (50-200); Estimated Glomerular Filt Rate 49 ml/min (>60); GFR (African American) 59 ML/MIN (>60); Glucose 183 mg/dl (74-100)
[2022-07-29 10:40] VITALS: BP 133/57; PULSE 57; RESP 18; TEMP 36.4; O2SAT 99
[2022-07-29 11:16] LABS: Gentamicin,Trough 1.9 ug/ml (0.0-2.0)
[2022-07-29 11:48] VITALS: BP 137/61; PULSE 62; RESP 18; O2SAT 99
== END 2022-07-29 11:49 | disposition home or self-care (01) ==
LOC: INF 10:07
PROVIDERS: PCP Family Medicine; Visit Provider Family Medicine
DX: N10 Acute pyelonephritis (principal)
CPT/HCPCS: 80048; 80170; 96365

== ENCOUNTER 2022-07-30 11:32 | Outpatient (CLI) | payer MEDICARE, SELFPAY ==
[2022-07-30 11:50] VITALS: BP 133/49; PULSE 64; RESP 18; TEMP 36.4; O2SAT 99
[2022-07-30 12:25] VITALS: BP 126/45; PULSE 67; RESP 18; O2SAT 99
[2022-07-30 13:05] VITALS: BP 121/46; PULSE 67; RESP 18; O2SAT 98
== END 2022-07-30 13:05 | disposition home or self-care (01) ==
LOC: INF 11:33
PROVIDERS: PCP Family Medicine; Visit Provider Family Medicine
DX: N10 Acute pyelonephritis (principal)
CPT/HCPCS: 96365

== ENCOUNTER 2022-07-31 12:26 | Outpatient (CLI) | payer MEDICARE, SELFPAY ==
[2022-07-31 12:50] VITALS: BP 140/69; PULSE 62; RESP 16; TEMP 36.2; O2SAT 96
[2022-07-31 13:55] VITALS: BP 142/70; PULSE 65; RESP 16; TEMP 36.4; O2SAT 97
--- NOTE | 2022-07-31 14:06 | CT_ITS ---
FINAL REPORT TECHNIQUE: Axial images through the abdomen and pelvis were performed without contrast. This study was performed with techniques to keep radiation doses as low as reasonably achievable, (ALARA). Individualized dose reduction techniques using automated exposure control or adjustment of mA and/or kV according to the patient's size were employed. CLINICAL HISTORY: RIGHT SIDED HYDRONEPHROSIS COMPARISON: 06/30/2022 FINDINGS: ABDOMEN: There is a calcified granuloma in the medial right lung base. Small pericardial effusion is identified. The heart size is normal. Limited images of the liver are unremarkable. The spleen is normal. No adrenal mass is identified. The aorta is normal in caliber. There is no significant free fluid or adenopathy. There is moderate right hydronephrosis and hydroureter to the pelvis with questionable stricture in this region. On the prior exam, the stone in the ureter at this level is no longer seen. There is a 3 mm nonobstructing stone in the posterior right kidney. There is mild scarring of the right kidney. There are presumed left renal cysts, stable. There is moderate vascular calcification. PELVIS: The appendix is unremarkable. There is a moderate amount of stool throughout the colon. Numerous diverticula are seen throughout the colon. The urinary bladder is unremarkable. There is no significant free fluid or adenopathy. IMPRESSION: Moderate right hydronephrosis and hydroureter with questionable stricture distally. Nonobstructing right renal stone. Reviewed, Interpreted and Dictated by Joni Gasca III, MD Transcribed by Silva Parks Authenticated and . [facility]
== END 2022-07-31 14:00 | disposition home or self-care (01) ==
PROVIDERS: PCP Family Medicine; Visit Provider Family Medicine
DX: N13.30 Unspecified hydronephrosis (principal); N10 Acute pyelonephritis
CPT/HCPCS: 74176; 96365

== ENCOUNTER 2022-08-04 10:49 | Outpatient (CLI) | payer MEDICARE, SELFPAY | END 2022-08-04 11:13 | disposition home or self-care (01) | LOC: INF 10:51 | PROVIDERS: PCP Family Medicine; Visit Provider Family Medicine | DX: N10 Acute pyelonephritis (principal); Z45.2 Encounter for adjustment and management of vascular access device | CPT/HCPCS: 96523 ==

== ENCOUNTER → 2022-08-06 20:01 | Outpatient (CLI) | payer MEDICARE, SELFPAY | PROVIDERS: PCP Family Medicine; Visit Provider Nurse Practitioner Family | DX: G47.33 Obstructive sleep apnea (adult) (pediatric) (principal); R09.02 Hypoxemia; R06.83 Snoring | CPT/HCPCS: 95810 ==

== ENCOUNTER 2022-08-11 08:54 | Outpatient (CLI) | payer MEDICARE, SELFPAY | END 2022-08-11 09:15 | disposition home or self-care (01) | LOC: INF 08:55 | PROVIDERS: PCP Family Medicine; Visit Provider Family Medicine | DX: N10 Acute pyelonephritis (principal); Z45.2 Encounter for adjustment and management of vascular access device | CPT/HCPCS: 96523 ==

== ENCOUNTER 2022-08-18 08:45 | Outpatient (CLI) | payer MEDICARE, SELFPAY | END 2022-08-18 09:15 | disposition home or self-care (01) | LOC: INF 08:46 | PROVIDERS: PCP Family Medicine; Visit Provider Family Medicine | DX: N10 Acute pyelonephritis (principal); Z45.2 Encounter for adjustment and management of vascular access device | CPT/HCPCS: 96523 ==

== ENCOUNTER 2022-08-25 11:32 | Outpatient (CLI) | payer MEDICARE, SELFPAY ==
[2022-08-25 11:38] VITALS: BMI 24.7
[2022-08-25 11:55] LABS: Blood Urea Nitrogen 24 mg/dl (7-17); Creatinine Clearance Estimated 46 mL/min (50-200); Estimated Glomerular Filt Rate 44 ml/min (>60); GFR (African American) 53 ML/MIN (>60)
== END 2022-08-25 12:00 | disposition home or self-care (01) ==
LOC: INF 11:34
PROVIDERS: Urology; PCP Family Medicine; Visit Provider Family Medicine
DX: N10 Acute pyelonephritis (principal); N20.0 Calculus of kidney
CPT/HCPCS: 36592; 82565; 84520

== ENCOUNTER → 2022-08-26 08:50 | Outpatient (CLI) | payer MEDICARE, SELFPAY ==
--- NOTE | 2022-08-26 08:54 | XR_ITS ---
FINAL REPORT TECHNIQUE: Laboratory Cureman film was performed. Patient was injected with 50 mL of Isovue-370. Images were obtained at 1 minute, 3 minutes, 5 minutes, 8 minutes, 10 minutes, 20 minutes, 55 minutes, and 1 hour 10 minutes. Post void image was also obtained. CLINICAL HISTORY: CALCULUS OF KIDNEY 50 cc of isovue 370 COMPARISON: None. FINDINGS: Laboratory Cureman film demonstrates no definite renal stones. There is partial lumbarization at the S1 level. 1 minute image demonstrates symmetric enhancement of the renal parenchyma. Sequential images demonstrate moderate right and mild left hydronephrosis. There is blunting of the calyces. The distal right ureter is not visualized. There is presumed obstruction of the proximal right ureter, although a definite stone is not seen. IMPRESSION: Moderate right and mild left hydronephrosis. The exact source of the obstruction of the right ureter is unclear. Recommend retrograde ureterogram. Reviewed, Interpreted and Dictated by Daniel Jean MD Transcribed by Myesha Santana PA-C Authenticated and [facility]
== END ==
PROVIDERS: PCP Family Medicine; Visit Provider Urology
DX: N20.0 Calculus of kidney (principal)
CPT/HCPCS: 74400; Q9967

== ENCOUNTER 2022-08-29 14:29 | Outpatient (CLI) | payer MEDICARE, SELFPAY | END 2022-08-29 15:00 | disposition home or self-care (01) | LOC: INF 14:31 | PROVIDERS: PCP Family Medicine; Visit Provider Family Medicine | DX: N39.0 Urinary tract infection, site not specified (principal); Z45.2 Encounter for adjustment and management of vascular access device | CPT/HCPCS: G0463 ==

== ENCOUNTER → 2022-09-05 14:52 | Outpatient (CLI) | payer MEDICARE, SELFPAY ==
--- NOTE | 2022-09-05 16:13 | PC.NURSE ---
PFT and 6 Minute Walk Test completed without incident. Albuterol 0.083% given via HHN, per protocol, Pt tolerated tx well.
== END ==
PROVIDERS: PCP Family Medicine; Visit Provider Nurse Practitioner Family
DX: G47.33 Obstructive sleep apnea (adult) (pediatric) (principal); G47.34 Idiopathic sleep related nonobstructive alveolar hypoventilation; I10 Essential (primary) hypertension; I27.20 Pulmonary hypertension, unspecified; I34.0 Nonrheumatic mitral (valve) insufficiency
CPT/HCPCS: 94060; 94618; 94726; 94729

== ENCOUNTER → 2022-11-25 16:45 | Outpatient (CLI) | payer MEDICARE, SELFPAY ==
--- NOTE | 2022-11-25 16:48 | MM_ITS ---
PROCEDURE INFORMATION: Exam: MG Bilateral Screening 3D Mammography Exam date and time: 11/25/2022 4:39 PM Age: 72 years old Clinical indication: Screening examination. Her mother had breast cancer at age 50. TECHNIQUE: Imaging protocol: Bilateral Screening tomosynthesis and 2D mammography including computer-aided detection (CAD) when performed. COMPARISON: 1. MG MM DIG SCREENING MAMM BI W/CAD 08/29/2020 8:42 AM 2. MG MM DIG SCREENING MAMM BI W/CAD 08/26/2019 1:11 PM 3. MG SCBI MM Dig screening mamm BI w/CAD 07/23/2018 8:41 AM 4. MG DMSB DIG MAMM-SCREEN JOSE F 05/21/2016 9:14 AM FINDINGS: MAMMOGRAPHY: Breast composition: There are scattered areas of fibroglandular density. Mass: None. Architectural distortion: Stable left central/inner architectural distortion with history of left benign excisional biopsy. Calcifications: No suspicious calcifications. Asymmetric density: None. Skin thickening: None. Axillary adenopathy: None. IMPRESSION: No mammographic evidence of malignancy. Annual screening is recommended unless otherwise clinically indicated. ASSESSMENT: BI-RADS Category 2: Benign
== END ==
PROVIDERS: PCP Family Medicine; Visit Provider Family Medicine
DX: Z12.31 Encounter for screening mammogram for malignant neoplasm of breast (principal)
CPT/HCPCS: 77063; 77067

== ENCOUNTER → 2023-01-26 07:47 | Outpatient (CLI) | payer MEDICARE, SELFPAY ==
[2023-01-26 09:15] LABS: Chloride 98 mmol/L (98-107)
[2023-01-26 09:16] LABS: Potassium 3.7 mmoL/L (3.5-5.1); Sodium 138 mmol/L (136-145)
[2023-01-26 09:18] LABS: Alanine Aminotransferase 20 U/L (12-78); Alkaline Phosphatase 59 U/L (38-126); Anion Gap 13.7 mEq/L (5-15); Aspartate Amino Transferase 24 U/L (14-36); Bilirubin,Total 0.3 mg/dl (0.2-1.3); Blood Urea Nitrogen 15 mg/dl (7-17); Carbon Dioxide 30 mmol/L (22.0-30.0); Cholesterol 120 mg/dl (140-200); Estimated Glomerular Filt Rate 70 ml/min (>60); GFR (African American) 85 ML/MIN (>60); Triglycerides 124 mg/dl (30-150); VLDL Cholesterol 25 mg/dL (0-40)
[2023-01-26 09:19] LABS: Albumin/Globulin Ratio 1.6 (1.1-1.8); Calcium 8.8 mg/dl (8.4-10.2); Globulin 2.5 g/dL (1.3-3.2); Glucose 214 mg/dl (74-100); HDL Cholesterol 40 mg/dl (40-60); Total Protein,Serum 6.5 g/dl (6.3-8.2)
[2023-01-26 09:30] LABS: Direct LDL Cholesterol 62.56 mg/dL (100-129)
[2023-01-26 09:37] LABS: Hemoglobin A1C 7.7 % (4.0-6.0)
== END ==
PROVIDERS: PCP Family Medicine; Visit Provider Family Medicine
DX: E11.9 Type 2 diabetes mellitus without complications (principal); E78.5 Hyperlipidemia, unspecified; I10 Essential (primary) hypertension; Z79.84 Long term (current) use of oral hypoglycemic drugs
CPT/HCPCS: 36415; 80053; 80061; 83036

== ENCOUNTER → 2023-01-28 15:07 | Outpatient (CLI) | payer MEDICARE, SELFPAY ==
[2023-01-28 17:12] LABS: Creatinine,Urine Random 81 mg/dL (Not Estab.)
== END ==
PROVIDERS: PCP Family Medicine; Visit Provider Family Medicine
DX: E11.9 Type 2 diabetes mellitus without complications (principal); E78.5 Hyperlipidemia, unspecified; I10 Essential (primary) hypertension; Z79.84 Long term (current) use of oral hypoglycemic drugs
CPT/HCPCS: 82043; 82570

== ENCOUNTER → 2023-03-03 13:05 | Outpatient (CLI) | payer MEDICARE, SELFPAY ==
--- NOTE | 2023-03-03 13:07 | CA_ITS ---
FINAL REPORT TECHNIQUE: Color Doppler, duplex Doppler and seo scale sonography of the bilateral neck arterial vasculature was performed. Velocities were measured in the carotid arteries. Stenosis evaluation based on the validated velocity criteria. CLINICAL HISTORY: makayla, Bruit FINDINGS: The peak systolic velocity of the right common carotid artery is 77 cm/s. The peak systolic velocity of the right internal carotid artery is 120 cm/s and end diastolic velocity 14 cm/s. The ICA/CCA ratio is 1.6. A moderate amount of plaque is present. The right external carotid artery is patent. The right vertebral artery is patent with antegrade flow. The peak systolic velocity of the left common carotid artery is 78 cm/s. The peak systolic velocity of the left internal carotid artery is 109 cm/s and end diastolic velocity 17 cm/s. The ICA/CCA ratio is 1.4. A mild to moderate amount of plaque is present. The left external carotid artery is patent.The left vertebral artery is patent with antegrade flow. IMPRESSION: Less than 50% bilateral carotid stenoses. Bilateral patent vertebral arteries with antegrade flow. If indicated, CTA or MRA could further evaluate. Reviewed, Interpreted and Dictated by Joni Gasca III, MD Transcribed by Silva Parks Authenticated and [facility]
== END ==
PROVIDERS: PCP Family Medicine; Visit Provider Nurse Practitioner Family
DX: I65.23 Occlusion and stenosis of bilateral carotid arteries (principal)
CPT/HCPCS: 93880

== ENCOUNTER → 2023-03-13 09:14 | Outpatient (CLI) | payer MEDICARE, SELFPAY ==
--- NOTE | 2023-03-13 09:17 | XR_ITS ---
FINAL REPORT CLINICAL HISTORY: post menopause COMPARISON: 02/01/2021 FINDINGS: Using L1-4, the bone mineral density of the spine is 1.138 g/cm2, corresponding to T-score of 0.8. Using the left hip, the bone mineral density of the femoral neck is 1.016 g/cm2, corresponding to a T-score of 1.5. Using the right hip: The bone mineral density of the femoral neck is 0.994 g/cm2, corresponding to a T-score of 1.3. IMPRESSION: Normal bone mineral density of the lumbar spine and hips. NOTE: T-score: Standard deviation compared with peak bone mass of young adult mean. *Following the recommendations of the International Society of Bone densitometry, classification of hip BMD is based on the lower of two T-scores; total hip or femoral neck. Reviewed, Interpreted and Dictated by Daniel Jean MD Transcribed by Cira Reyes Authenticated and [facility]
== END ==
PROVIDERS: PCP Family Medicine; Visit Provider Family Medicine
DX: Z78.0 Asymptomatic menopausal state (principal)
CPT/HCPCS: 77080

== ENCOUNTER → 2023-03-30 11:54 | Outpatient (CLI) | payer MEDICARE, SELFPAY ==
--- NOTE | 2023-03-30 11:57 | XR_ITS ---
FINAL REPORT CLINICAL HISTORY: in pain s/p fall FINDINGS: Five views of the cervical spine plus flexion and extension views: There is disc space narrowing at the C4-5, C5-6, C6-7, and C7-T1 levels. Anterior osteophytes are present at these levels as well. There is no evidence of cervical instability, specifically no evidence of motion in flexion or extension. No acute bony abnormality is identified. IMPRESSION: Degenerative change as described above. No evidence of instability with flexion or extension and no acute bony abnormality identified. Reviewed, Interpreted and Dictated by Daniel Jean MD Transcribed by Francheska Singh Authenticated and [facility]
--- NOTE | 2023-03-30 11:57 | XR_ITS ---
FINAL REPORT TECHNIQUE: 3 views CLINICAL HISTORY: inc pain s/p fall FINDINGS: There is no fracture present. There is no malalignment. There are anterior osteophytes present at the L1-2, L2-3, and L3-4 levels. IMPRESSION: Anterior osteophytes at multiple levels. No acute bony abnormality identified. Reviewed, Interpreted and Dictated by Daniel Jean MD Transcribed by Francheska Singh Authenticated and [facility]
[2023-03-30 12:43] LABS: Basophils % 0.7 % (0.1-2.0); Eosinophils # 0.2 K/mm3 (0.0-0.4); Eosinophils % 4.7 % (0.1-12.0); Hematocrit 33.9 % (37.0-47.0); Hemoglobin 11.5 g/dL (12.2-16.2); Lymphocytes % 23.6 % (10-50); Mean Corpuscular Hemoglobin 29.3 pg (27.0-31.2); Mean Platelet Volume 7.9 fl (7.4-10.4); Monocytes # 0.3 K/mm3 (0.1-1.0); Monocytes % 6.7 % (1.7-9.3); Neutrophils # 2.7 K/mm3 (1.8-7.8); Neutrophils % 64.3 % (37.0-80.0); Platelet Count 199 K/mm3 (142-424); Red Blood Count 3.94 M/mm3 (4.20-5.40); Red Cell Distribution Width 13.5 % (11.5-17.5); White Blood Count 4.2 K/mm3 (4.8-10.8)
[2023-03-30 12:47] LABS: Chloride 97 mmol/L (98-107); Sodium 137 mmol/L (136-145)
[2023-03-30 12:48] LABS: Potassium 3.9 mmoL/L (3.5-5.1)
[2023-03-30 12:50] LABS: Alanine Aminotransferase 28 U/L (12-78); Alkaline Phosphatase 72 U/L (38-126); Aspartate Amino Transferase 30 U/L (14-36); Bilirubin,Total 0.2 mg/dl (0.2-1.3); Blood Urea Nitrogen 15 mg/dl (7-17); Estimated Glomerular Filt Rate 49 ml/min (>60); GFR (African American) 59 ML/MIN (>60)
[2023-03-30 12:51] LABS: Albumin/Globulin Ratio 1.5 (1.1-1.8); Anion Gap 13.9 mEq/L (5-15); Calcium 8.9 mg/dl (8.4-10.2); Carbon Dioxide 30 mmol/L (22.0-30.0); Globulin 2.6 g/dL (1.3-3.2); Glucose 197 mg/dl (74-100); Total Protein,Serum 6.6 g/dl (6.3-8.2)
[2023-03-30 13:21] LABS: Thyroid Stimulating Hormone 1.92 uIU/mL (0.465-4.68)
[2023-03-30 14:11] LABS: Vitamin B12 274 pg/mL (239-931)
[2023-03-30 14:12] LABS: Folate 7.37 ng/mL
== END ==
PROVIDERS: PCP Family Medicine; Visit Provider Nurse Practitioner Family
DX: M47.812 Spondylosis without myelopathy or radiculopathy, cervical region (principal); M54.2 Cervicalgia; M54.50 Low back pain, unspecified; R20.8 Other disturbances of skin sensation; R26.89 Other abnormalities of gait and mobility; R29.2 Abnormal reflex; R29.6 Repeated falls; R32 Unspecified urinary incontinence; F39 Unspecified mood [affective] disorder; I10 Essential (primary) hypertension; R25.1 Tremor, unspecified; R41.3 Other amnesia
CPT/HCPCS: 36415; 72052; 72100; 80053; 82607; 82746; 84443; 85025

== ENCOUNTER → 2023-04-22 10:23 | Outpatient (CLI) | payer MEDICARE, SELFPAY ==
--- NOTE | 2023-04-22 10:24 | MR_ITS ---
FINAL REPORT CLINICAL HISTORY: increasing pain s/p fall, abn exam COMPARISON: 06/06/2022 FINDINGS: Multiplanar MR imaging of the lumbar spine was performed without contrast. On the sagittal T2-weighted images, disc degeneration is seen at multiple levels. There is mild retrolisthesis of L1 on L2 and L2 on L3. Several Schmorl's nodes are identified. There are multiple cysts in the sacral canal. There is no evidence of fracture. No bony mass is identified. The conus has an unremarkable appearance. T12-L1: An annular bulge is present with moderate anterior osteophytes. L1-2: An annular bulge is present with moderate anterior osteophytes. There is a small left foraminal disc protrusion and mild left neural foraminal narrowing. L2-3: An annular bulge is present with moderate anterior osteophytes. There is mild bilateral neural foraminal narrowing. L3-4: An annular bulge is present with moderate anterior osteophytes. There is a right paracentral disc protrusion as well as a foraminal disc protrusion. This probably impinges on the right L4 nerve root. There is moderate right and mild left neural foraminal narrowing. L4-5: An annular bulge is present with moderate anterior osteophytes. There is a small left paracentral disc protrusion, and mild right, moderate left neural foraminal narrowing. L5-S1: There is partial sacralization of the L5 vertebral body. An annular bulge is present. There is no significant canal stenosis or neural foraminal narrowing. When compared with the prior MRI examination of 06/06/2022, no significant change in the lumbar disc disease is identified. There is mild improvement in the right hydronephrosis, and several left renal cysts are once again identified. IMPRESSION: Multilevel degenerative disc disease and spondylosis as described. There is no significant change noted since the prior lumbar spine MRI of 06/06/2022. Reviewed, Interpreted and Dictated by Joni Gasca III, MD Transcribed by Francheska Singh Authenticated and [facility]
--- NOTE | 2023-04-22 10:24 | MR_ITS ---
FINAL REPORT CLINICAL HISTORY: worsening pain s/p fall, hx abn mri COMPARISON: 06/06/2022 FINDINGS: Multiplanar MR imaging of the cervical spine was performed without contrast. On the sagittal T2-weighted images, disc degeneration is seen at multiple levels. There is no evidence of fracture. There is mild kyphosis present centered at the C5-6 level. The cervical spinal cord has an unremarkable appearance without evidence of mass, edema or syrinx. No significant canal stenosis is identified. The cervicomedullary junction is normal. C2-3: There are bilateral uncovertebral osteophytes with mild left neural foraminal narrowing. C3-4: Small disc osteophyte complex with moderate right neural foraminal narrowing. C4-5: Disc osteophyte complex with moderate bilateral neural foraminal narrowing, and mild narrowing of the AP canal diameter of 7 mm. C5-6: Disc osteophyte complex with moderate left neural foraminal narrowing and mild AP canal diameter narrowing of 8 mm. C6-7: Disc osteophyte complex with a small right foraminal disc protrusion and moderate bilateral neural foraminal narrowing. C7-T1: Disc osteophyte complex with moderate right neural foraminal narrowing. T1-2: No evidence of canal or neural foraminal narrowing. IMPRESSION: As described above, most severe at the C4-5 and C5-6 levels. Reviewed, Interpreted and Dictated by Joni Gasca III, MD Transcribed by Francheska Singh Authenticated and . [facility]
== END ==
PROVIDERS: PCP Family Medicine; Visit Provider Nurse Practitioner Family
DX: M47.812 Spondylosis without myelopathy or radiculopathy, cervical region (principal); M54.2 Cervicalgia; M54.50 Low back pain, unspecified; R20.8 Other disturbances of skin sensation; R26.89 Other abnormalities of gait and mobility; R29.2 Abnormal reflex; R29.6 Repeated falls; R32 Unspecified urinary incontinence
CPT/HCPCS: 72141; 72148; 76376

== ENCOUNTER → 2023-05-25 12:57 | Outpatient (CLI) | payer MEDICARE, SELFPAY ==
[2023-05-27 08:37] LABS: Homocyst(e)ine 10.2 umol/L (0.0-19.2)
[2023-06-04 10:45] LABS: Methylmalonic Acid 321 nmol/L (0-378)
== END ==
PROVIDERS: PCP Family Medicine; Visit Provider Nurse Practitioner Family
DX: E53.8 Deficiency of other specified B group vitamins (principal); I10 Essential (primary) hypertension; M47.812 Spondylosis without myelopathy or radiculopathy, cervical region; M54.2 Cervicalgia; M54.50 Low back pain, unspecified; R20.0 Anesthesia of skin; R20.8 Other disturbances of skin sensation; R26.89 Other abnormalities of gait and mobility; R29.6 Repeated falls
CPT/HCPCS: 36415; 83090; 83921

== ENCOUNTER → 2023-08-12 11:35 | Outpatient (CLI) | payer MEDICARE, SELFPAY ==
[2023-08-12 12:05] LABS: Basophils % 0.6 % (0.1-2.0); Eosinophils # 0.2 K/mm3 (0.0-0.4); Eosinophils % 4.4 % (0.1-12.0); Hematocrit 36.7 % (37.0-47.0); Hemoglobin 12.7 g/dL (12.2-16.2); Lymphocytes # 0.7 K/mm3 (0.7-4.5); Lymphocytes % 17.9 % (10-50); Mean Corpuscular HGB Conc 34.5 g/dL (31.8-35.4); Mean Corpuscular Volume 89.7 fl (81-99); Mean Platelet Volume 7.8 fl (7.4-10.4); Monocytes # 0.3 K/mm3 (0.1-1.0); Monocytes % 8.5 % (1.7-9.3); Neutrophils # 2.6 K/mm3 (1.8-7.8); Neutrophils % 68.5 % (37.0-80.0); Platelet Count 185 K/mm3 (142-424); Red Blood Count 4.09 M/mm3 (4.20-5.40); Red Cell Distribution Width 13.4 % (11.5-17.5); White Blood Count 3.8 K/mm3 (4.8-10.8)
[2023-08-12 12:44] LABS: Alanine Aminotransferase 26 U/L (12-78); Albumin Level 4.2 g/dl (3.5-5.0); Albumin/Globulin Ratio 1.6 (1.1-1.8); Alkaline Phosphatase 64 U/L (38-126); Aspartate Amino Transferase 28 U/L (14-36); Bilirubin,Total 0.3 mg/dl (0.2-1.3); Blood Urea Nitrogen 15 mg/dl (7-17); Carbon Dioxide 30 mmol/L (22.0-30.0); Chloride 98 mmol/L (98-107); Chol/HDL Ratio 2.9 (1-3.5); Cholesterol 111 mg/dl (140-200); Estimated Glomerular Filt Rate 61 ml/min (>60); GFR (African American) 74 ML/MIN (>60); Globulin 2.6 g/dL (1.3-3.2); Glucose 211 mg/dl (74-100); HDL Cholesterol 38 mg/dl (40-60); Sodium 137 mmol/L (136-145); Total Protein,Serum 6.8 g/dl (6.3-8.2); Triglycerides 92 mg/dl (30-150); VLDL Cholesterol 18 mg/dL (0-40)
[2023-08-12 12:55] LABS: Direct LDL Cholesterol 64.99 mg/dL (100-129)
[2023-08-12 13:03] LABS: Hemoglobin A1C 7.5 % (4.0-6.0)
[2023-08-12 13:32] LABS: Vitamin B12 243 pg/mL (239-931)
[2023-08-12 14:38] LABS: Iron 70 ug/dL (37-170)
== END ==
PROVIDERS: PCP Family Medicine; Visit Provider Family Medicine
DX: E78.5 Hyperlipidemia, unspecified (principal); E11.9 Type 2 diabetes mellitus without complications; I10 Essential (primary) hypertension; D50.9 Iron deficiency anemia, unspecified; Z79.84 Long term (current) use of oral hypoglycemic drugs
CPT/HCPCS: 36415; 80053; 80061; 82607; 83036; 83540; 85025

== ENCOUNTER 2023-11-12 17:00 | Outpatient (RCR) | payer MEDICARE, SELFPAY ==
--- NOTE | 2023-08-27 17:13 | HMH.PTOPEV ---
PT Outpatient Evaluation Rehab PT Outpatient Evaluation Start: 08/27/23 15:41 Freq: Status: Active Protocol: Document 08/27/23 15:45 INDRA (Rec: 08/27/23 16:19 INDRA [id number]) E-signed By Benny Hanley, PT Outpatient Therapy Subjective History Subjective History Patient is a 73 year old female presenting to outpatient PT with reports of chronic cervical/lumbar spine pain, as well as poor balance. Patient presents with BLE diabetic neuropathy. Multiple falls over the 6 months. Comorbidities include hx of HTN, diabetes and anxiety. Most recent imaging indicates both cervical and lumbar spine degenerative changes. New diagnosis of cancer in past 12 No months? Chief Complaint Pain,Stiff,Gives out/Unstable, Paresthesia,Weakness Symptom Type Ache,Numbness,Tingling,Other Symptoms Relieved By Rest/Positioning,Heat,Ice,OTC Meds Symptoms Aggravated By Standing,Bending/Stooping, Physical Activity,Walking Prior Functional Limitations None Current Functional Limitations Lifting,Housework,Standing, Walking,Stairs,Balance,Bending /Stooping Symptom Description Constant but Variable Level of pain today (0-10) 5 Pain scale - at its best (0-10) 3 Pain scale - at its worst (0-10) 8 Cervical Eval Palpation Cervical Muscles R CT Junction,L CT Junction,R Upper Trapezius,L Upper Trapezius Posture Head/C-Spine Posture Sitting Position C-Spine Flattened Head/C-Spine Posture Standing Position C-Spine Flattened Flexibility Deficits Upper Trapezius Muscle Length (R) Moderate Tightness,(L) Moderate Tightness Levaetor Scapulae Muscle Length (R) Moderate Tightness,(L) Moderate Tightness Pectoralis Minor Muscle Length (R) Moderate Tightness,(L) Moderate Tightness Passive Joint Mobility Cervical PIVM Dec: R OA L OA R AA L AA R C2/3 L C2/3 R C3/4 L C3/4 R C4/5 L C4/5 R C5/6 L C5/6 R C6/7 L C6/7 R C7/T1 L C7/T1 AROM Cervical Spine Extension Active Range of 47 Motion (degrees) Cervical Spine Flexion Active Range of 33 Motion (degrees) Cervical Spine Right Lateral Flexion 31 Active Range of Motion (degrees) Cervical Spine Left Lateral Flexion 34 Active Range of Motion (degrees) Cervical Spine Right Rotation Active 42 Range of Motion (degrees) Cervical Spine Left Rotation Active 35 Range of Motion (degrees) MMT Bilateral Deltoid (C5) 4- Good- Biceps Brachii Strength Grade 4- Good- Wrist Extension Strength Grade 4- Good- Triceps Brachii Strength Grade 4- Good- Wrist Flexion Strength Grade 4- Good- Extensor Pollicis Longus Strength Grade 4- Good- Finger Abduction Strength Grade 4- Good- Special Test C-Spine Foraminal Compression (Spurling) Negative Left,Negative Right Test C-Spine Foraminal Distraction Test Positive Lumbopelvic Eval Posture Thoracic Spine Posture Standing Position Increased Kyphosis Lumbar Spine Posture Standing Position Decreased Lordosis Assistive device Assistive Devices Straight Cane Palapation tenderness bilateral Lumbar/Sacral Palpation Findings Tenderness Lumbar/Sacral Palpation Overall Comment B SIJ, L5/S1, upper gluteal mm 3/4 Accessory Movement L3 bilateral L4 bilateral L5 bilateral S1 bilateral Range of Motion Lumbar Spine Active Flexion Range of 85 Motion (degrees) Lumbar Spine Active Extension Range of 12 Motion (degrees) Left Lumbar Spine Lateral Flexion Active 10 Range of Motion (degrees) Right Lumbar Spine Lateral Flexion 11 Active Range of Motion (degrees) Lumbar Spine ROM Limitations Soft Tissue Tightness,Bony Restriction Manual Muscle Test Bilateral Knee Extension Strength Grade 4- Good- Knee Flexion Strength Grade 4- Good- Hip Flexion Strength Grade 4- Good- Extensor Hallucis Longus Strength Grade 4- Good- Ankle Dorsiflexion Strength Grade 4- Good- Gastronemius/Soleus Strength Grade 4- Good- Altered Sensation LE Dermatome Level L4,L5,S1 Special Tests Lumbar Spine Screen Positive Hip Guilherme (CLIFFORD) Test Positive Left,Positive Right Hip Ml Test Positive Left,Positive Right Hip Piriformis Test Positive Left,Positive Right Reverse Sciatic Nerve Tension Test Negative Right,Positive Left James Test Positive Lumbar Long Tenstrike Distraction Test/Manual Positive Traction Balance Eval Subjective Hx of Complaint Comment My legs just give out on me and I fall down. Prior Functional Limitations Prior Functional [place] Level Independent will all standing/ ambulatory activities. Current Functional Limitations Comment Difficulty with all standing/ ambulatory activities. Hx of Falls Hx Falls Yes Number in last 6 months 6 [place] Feet Together/Eyes open/Stable Surface pass Feet Together/Eyes Closed/Stable Surface pass Feet Together/Eyes open/Unstable Surface fail Feet Together/Eyes Closed/Unstable fail Surface Oswestry Index Section 1 Pain Intensity The pain comes and goes and is moderate Section 2 Personal Care (Washing,Dresing) change my way of washing or dressing in order to avoid pain Section 3 Lifting I can only lift very light weights at most Section 4 Walking I cannot walk more than one mile wihtout increasing pain Section 5 Sitting Pain prevents me from sitting for more than one hour Section 6 Standing I cannot stand more than 1 hour without increasing pain Section 7 Sleeping I get pain in bed, but it does not prevent me from sleeping well Section 8 Social Life My social life is normal but increases the degree of pain Section 9 Traveling I get some pain when traveling , but none of my usual forms of travel m Section 10 Changing Degreee of Pain My pain is gradually getting worse Score and Risk Level Oswestry Sc 20 Oswestry Risk Level Moderate Disability Neck Disability Index Neck Disability Index Section 1: Pain Intensity The pain is moderate at the moment Section 2: Personal Care (washing, I can look after myself dressing, etc.) normally without causing extra pain Section 3: Lifting I cannot lift or carry anything Section 4: Reading I can read as much as I want with moderate pain in my neck Section 5: Headaches I have slight headaches, which come infrequently Section 6: Concentration I can concentrate fully when I want to with no difficulty Section 7: Work I can do most of my usual work , but no more Section 8: Driving I can drive my car as long as I want with moderate pain in my neck Section 9: Sleeping My sleep is slightly disturbed (less than 1 hr sleepless) Section 10: Recreation I am able to engage in all my recreation activities with some pain in NDI Score 16 Outpatient Therapy Assessment Impairments Problems/Impairmments Palpation Tenderness,Impaired Range of Motion,Impaired Strength,Impaired Walking, Impaired Standing,Impaired Lifting,Impaired Household Care,Impaired Stair Climbing, Impaired Incline Stepping, Impaired Stepping on Uneven Surface,Impaired Squatting, Impaired Bending,Impaired Balance,Subjective C/O Pain Prognosis Rehab Potential Good Clinical Impression Consistent with Diagnosis Yes Short Term Goals Number of Weeks 2 Decrease Subjective C/O Pain Yes: 5/10 at worst Patient to be Ind w/ HEP Yes Fpc Goals Number of Weeks 4-6 Decreased Palpation Tenderness Yes: 1/4 Increase Range of Motion Yes: CS/LS WNL all planes Increase Strength Yes: 5/5 BUE/BLE Improve Gait Pattern without Assistive Yes Device Increase Ability to Walk Yes: 30 min without difficulty Increase Ability to Stand Yes: Improve Ability For Household Care Yes Improve Oswestry Score Yes: Mild disability Improve Neck Disability Index Score Yes: Decrease Subjective C/O Pain Yes: 2/10 at worst Outpatient Therapy Plan of Care Treatment Plan May Include Therapeutic Exercise Including Home Yes Exercise Program Manual Therapy Techniques Yes Neuromuscular Re-education Yes Therapeutic Activities to Return to Yes Previous Functional/Work Level Gait Training Yes ADL/Self Care Education Yes Mechanical Traction Yes Dry Needling Yes Thermal Modalities Yes Electrical Stimulation Yes Ultrasound/Phonophoresis Yes Iontophoresis Yes Orthotics/Bracing/Splinting Yes Massage Yes Eval/Re-Eval Yes Aquatic Therapy Yes Frequency Times per week 2 Duration Number of Weeks 4-6 Addendums This patient is a candidate for social No or vocational rehab? Patient/Guardian verbally acknowledges Yes understanding of treatment program and consents to further treatment? Patient/Guardian verbally acknowledges Yes understanding of diagnosis, prognosis and goals for treatment? Eval Complexity PT Charges 84055 - Moderate Complexity Shoulder/Elbow Eval Shoulder Objective Measurements Elbow Objective Measurements PHYSICIAN CERTIFICATION: I certify the specified therapy services for Nani Alex are required, authorized, and reviewed every 30 days.
== END 2023-11-12 18:15 | disposition home or self-care (01) ==
LOC: PT 17:00
PROVIDERS: PCP Family Medicine; Visit Provider Nurse Practitioner Family
DX: R26.89 Other abnormalities of gait and mobility (principal); M54.50 Low back pain, unspecified; M54.2 Cervicalgia; M47.812 Spondylosis without myelopathy or radiculopathy, cervical region; R20.0 Anesthesia of skin; M21.372 Foot drop, left foot; M47.816 Spondylosis without myelopathy or radiculopathy, lumbar region
CPT/HCPCS: 97110; 97112; 97163; 97164; 97530

== ENCOUNTER 2024-01-21 08:00 | Outpatient (CLI) | payer MEDICARE, SELFPAY ==
--- NOTE | 2024-01-21 08:07 | MM_ITS ---
PROCEDURE INFORMATION: Exam: MG Bilateral Screening 3D Mammography Exam date and time: 01/21/2024 7:57 AM Age: 73 years old Clinical indication: Screening examination TECHNIQUE: Imaging protocol: Bilateral Screening tomosynthesis and 2D mammography including computer-aided detection (CAD) when performed. COMPARISON: 1. MG MM DIG SCREENING MAMM BI W/CAD 11/25/2022 4:39 PM 2. MG MM DIG SCREENING MAMM BI W/CAD 08/29/2020 8:42 AM 3. MG MM DIG SCREENING MAMM BI W/CAD 08/26/2019 1:11 PM 4. MG SCBI MM Dig screening mamm BI w/CAD 07/23/2018 8:41 AM FINDINGS: MAMMOGRAPHY: Breast composition: There are scattered areas of fibroglandular density. Mass: None. Architectural distortion: No new or suspicious architectural distortion. Calcifications: No new or suspicious calcifications are present Asymmetric density: No new or suspicious asymmetric density is present Skin thickening: None. Axillary adenopathy: None. IMPRESSION: No mammographic evidence of malignancy. Recommend annual screening mammography unless otherwise clinically indicated. ASSESSMENT: BI-RADS category 1: Negative.
== END 2024-01-21 23:59 ==
LOC: RAD 08:00
PROVIDERS: PCP Family Medicine; Visit Provider Family Medicine
DX: Z12.31 Encounter for screening mammogram for malignant neoplasm of breast (principal)
CPT/HCPCS: 77063; 77067

== ENCOUNTER 2024-02-03 16:47 | Outpatient (CLI) | payer MEDICARE, SELFPAY ==
[2024-02-03 17:16] LABS: Eosinophils # 0.1 K/mm3 (0.0-0.4); Eosinophils % 2.8 % (0.1-12.0); Hematocrit 33.6 % (37.0-47.0); Hemoglobin 11.3 g/dL (12.2-16.2); Lymphocytes # 1.1 K/mm3 (0.7-4.5); Mean Corpuscular HGB Conc 33.5 g/dL (31.8-35.4); Mean Corpuscular Hemoglobin 29.6 pg (27.0-31.2); Mean Corpuscular Volume 88.4 fl (81-99); Mean Platelet Volume 7.9 fl (7.4-10.4); Monocytes # 0.5 K/mm3 (0.1-1.0); Monocytes % 11.8 % (1.7-9.3); Neutrophils # 2.3 K/mm3 (1.8-7.8); Neutrophils % 56.5 % (37.0-80.0); Platelet Count 200 K/mm3 (142-424); Red Cell Distribution Width 14.6 % (11.5-17.5)
== END 2024-02-03 23:59 | disposition home or self-care (01) ==
LOC: LAB 16:48
PROVIDERS: PCP Family Medicine; Visit Provider Physician Assistant
DX: J40 Bronchitis, not specified as acute or chronic (principal)
CPT/HCPCS: 36415; 85025

== ENCOUNTER 2024-02-05 12:33 | Outpatient (CLI) | payer MEDICARE, SELFPAY ==
--- NOTE | 2024-02-05 12:37 | XR_ITS ---
FINAL REPORT TECHNIQUE: Chest PA & Lateral CLINICAL HISTORY: BRONCHITIS FINDINGS: 2 views of the chest were performed. There is mild cardiomegaly. There is an unfolded aorta. There is no acute cardiopulmonary process. There are no pleural effusions. There is no pneumothorax. The bony thorax appears intact. IMPRESSION: No acute cardiopulmonary process. Reviewed, Interpreted and Dictated by Daniel Jean MD Transcribed by Cira Reyes Authenticated and [facility]
== END 2024-02-05 23:59 | disposition home or self-care (01) ==
LOC: RAD 12:34
PROVIDERS: PCP Family Medicine; Visit Provider Physician Assistant
DX: J40 Bronchitis, not specified as acute or chronic (principal)
CPT/HCPCS: 71046

== ENCOUNTER 2024-02-09 14:42 | Outpatient (CLI) | payer MEDICARE, SELFPAY | END 2024-02-09 23:59 | disposition home or self-care (01) | LOC: RT 14:43 | PROVIDERS: PCP Family Medicine; Visit Provider Nurse Practitioner | DX: R00.2 Palpitations (principal); R00.1 Bradycardia, unspecified; I25.10 Atherosclerotic heart disease of native coronary artery without angina pectoris; I27.20 Pulmonary hypertension, unspecified; R93.89 Abnormal findings on diagnostic imaging of other specified body structures | CPT/HCPCS: 93225 ==

== ENCOUNTER 2024-02-12 09:39 | Outpatient (CLI) | payer MEDICARE, SELFPAY ==
[2024-02-12 10:08] LABS: Basophils # 0.1 K/mm3 (0-0.2); Basophils % 1.2 % (0.1-2.0); Eosinophils # 0.2 K/mm3 (0.0-0.4); Eosinophils % 3.7 % (0.1-12.0); Hematocrit 37.4 % (37.0-47.0); Hemoglobin 11.9 g/dL (12.2-16.2); Lymphocytes % 18.9 % (10-50); Mean Corpuscular HGB Conc 31.8 g/dL (31.8-35.4); Mean Corpuscular Hemoglobin 28.8 pg (27.0-31.2); Mean Corpuscular Volume 90.7 fl (81-99); Mean Platelet Volume 8.2 fl (7.4-10.4); Monocytes # 0.3 K/mm3 (0.1-1.0); Monocytes % 6.1 % (1.7-9.3); Neutrophils # 3.6 K/mm3 (1.8-7.8); Neutrophils % 70.1 % (37.0-80.0); Platelet Count 247 K/mm3 (142-424); Red Blood Count 4.13 M/mm3 (4.20-5.40); Red Cell Distribution Width 14.5 % (11.5-17.5); White Blood Count 5.2 K/mm3 (4.8-10.8)
[2024-02-12 11:17] LABS: Alanine Aminotransferase 30 U/L (12-78); Albumin Level 4.4 g/dl (3.5-5.0); Albumin/Globulin Ratio 1.8 (1.1-1.8); Alkaline Phosphatase 66 U/L (38-126); Anion Gap 17.7 mEq/L (5-15); Aspartate Amino Transferase 32 U/L (14-36); Bilirubin,Total 0.4 mg/dl (0.2-1.3); Blood Urea Nitrogen 30 mg/dl (7-17); Carbon Dioxide 25 mmol/L (22.0-30.0); Chloride 99 mmol/L (98-107); Chol/HDL Ratio 3.6 (1-3.5); Cholesterol 154 mg/dl (140-200); Estimated Glomerular Filt Rate 40 ml/min (>60); GFR (African American) 48 ML/MIN (>60); Globulin 2.5 g/dL (1.3-3.2); Glucose 234 mg/dl (74-100); HDL Cholesterol 43 mg/dl (40-60); Hemoglobin A1C 8.4 % (4.0-6.0); Potassium 3.7 mmoL/L (3.5-5.1); Sodium 138 mmol/L (136-145); Total Protein,Serum 6.9 g/dl (6.3-8.2); Triglycerides 202 mg/dl (30-150); VLDL Cholesterol 40 mg/dL (0-40)
[2024-02-12 11:29] LABS: Direct LDL Cholesterol 87.32 mg/dL (100-129)
[2024-02-12 11:32] LABS: Free T4 (Free Thyroxine) 0.82 ng/dl (0.78-2.19)
[2024-02-12 11:48] LABS: Thyroid Stimulating Hormone 1.58 uIU/mL (0.465-4.68)
[2024-02-12 12:07] LABS: Vitamin B12 471 pg/mL (239-931)
== END 2024-02-12 23:59 | disposition home or self-care (01) ==
LOC: LAB 09:41
PROVIDERS: PCP Family Medicine; Visit Provider Nurse Practitioner
DX: R00.2 Palpitations (principal); R00.0 Tachycardia, unspecified; E11.9 Type 2 diabetes mellitus without complications; I10 Essential (primary) hypertension; E78.5 Hyperlipidemia, unspecified; E53.8 Deficiency of other specified B group vitamins; Z79.84 Long term (current) use of oral hypoglycemic drugs
CPT/HCPCS: 36415; 80053; 80061; 82607; 83036; 84439; 84443; 85025; 93270

== ENCOUNTER 2024-03-08 08:56 | Outpatient (CLI) | payer MEDICARE, SELFPAY ==
--- NOTE | 2024-03-08 08:56 | US_ITS ---
FINAL REPORT TECHNIQUE: Ultrasound images of the abdominal aorta were obtained. CLINICAL HISTORY: abnormal chest x-ray COMPARISON: None FINDINGS: ULTRASOUND OF THE ABDOMINAL AORTA The aorta measures up to 2.2 cm. The bifurcation is normal. IMPRESSION: No evidence of abdominal aortic aneurysm. Reviewed, Interpreted and Dictated by Daniel Jean MD Transcribed by Mi Bowman Authenticated and [facility]
--- NOTE | 2024-03-08 09:20 | CA_ITS ---
APPROVED REPORT EXAM: Comprehensive 2D, Doppler, and color-flow Echocardiogram [employer] Machine Operator: Ruth Jean Baptiste CRT Ht: 5 ft 6 in Wt: 178lbs BSA: 1.90 BP: 145/46 mmHg Indications: Murmur, Diabetes, Hyperlipidemia, Hypertension/HDD, PHTN, SVT, CAD 2D Dimensions LA Volume 37.60 mL LA Volume Index 19.30 mL/m2 (M/F) 16-34 M-Mode Dimensions RVDd 2.78 cm (0.9-2.6) LA Diam 3.26 cm (1.9-4.0) LVDd 4.17 cm (3.5-5.7) LVDs 2.50 cm (3.5-5.7) IVSd 2.10 cm (0.6-1.1) PWd 0.82 cm (0.6-1.1) EF (Teich) 71.20% FS 40.00% EDV (Teich) 77.30 mL TAPSE 2.12 (<1.7) ESV (Teich) 22.30 mL LV Diastology E Decel Time 240 (160-240 msec) E/A Ratio 0.85 MED A' 8.30 cm/s LAT A' 8.90 cm/s Aortic Valve AO Peak GR. 10.80 mmHg Mitral Valve MV A Velocity 90.0 (40-130 cm/s) E/A Ratio 0.85 Pulmonary Valve PV Peak Velocity 143.0 (50-150 cm/s) Tricuspid Valve TR P. Velocity 260.00 cm/s RAP Estimate 10.00 mmHg RVSP 37.10 mmHg Left Ventricle The left ventricle is normal size. The left ventricular systolic function is normal. The left ventricular ejection fraction is within the normal range. There is increased LV wall thickness. There is normal LV segmental wall motion. Diastolic function is indeterminate. LVEF is 60%. Right Ventricle The right ventricle is well-visualized, but is grossly normal in size and function. Atria Left atrium is mildly dilated. The right atrium size is normal. There is no Doppler evidence of interatrial shunt. Aortic Valve The aortic valve is mildly thickened. There is no aortic valvular stenosis. No aortic regurgitation is present. Mitral Valve The mitral valve leaflets are mildly thickened. Mild mitral regurgitation. No evidence of mitral valve stenosis. Tricuspid Valve Tricuspid valve leaflets are thin and pliable. Mild tricuspid regurgitation. RVSP is 30-30 mmHg. Pulmonic Valve The pulmonary valve is normal in structure. Mild pulmonic regurgitation. Great Vessels The aortic root is normal in size. The ascending aorta is borderline dilated, measuring 3.7 cm in diameter. IVC is normal in size and collapses >50% with inspiration. Pericardium There is no pericardial effusion. Other Information Study Quality: Fair Conclusion Normal biventricular systolic function. Mild LA dilation. Mild MR, mild TR, mild PI. RVSP 30-35 mmHg. Borderline dilated ascending aorta, 3.7 cm in diameter. Electronically signed by : Laurie Barakat MD 03/10/2024 13:42:29
== END 2024-03-08 23:59 | disposition home or self-care (01) ==
LOC: RAD 08:56
PROVIDERS: PCP Family Medicine; Visit Provider Nurse Practitioner
DX: R93.89 Abnormal findings on diagnostic imaging of other specified body structures (principal); I27.20 Pulmonary hypertension, unspecified; I34.0 Nonrheumatic mitral (valve) insufficiency; I10 Essential (primary) hypertension; E11.42 Type 2 diabetes mellitus with diabetic polyneuropathy; E78.2 Mixed hyperlipidemia; I11.9 Hypertensive heart disease without heart failure; I25.10 Atherosclerotic heart disease of native coronary artery without angina pectoris; G47.33 Obstructive sleep apnea (adult) (pediatric); I65.23 Occlusion and stenosis of bilateral carotid arteries; R00.0 Tachycardia, unspecified; R00.2 Palpitations; Z79.84 Long term (current) use of oral hypoglycemic drugs
CPT/HCPCS: 76770; 93306

== ENCOUNTER 2024-04-26 16:01 | Outpatient (CLI) | payer MEDICARE, SELFPAY | END 2024-04-26 23:59 | disposition home or self-care (01) | LOC: LAB.DROPOF 16:02 | PROVIDERS: PCP Nurse Practitioner; Visit Provider Nurse Practitioner | DX: L60.3 Nail dystrophy (principal); L84 Corns and callosities; E11.40 Type 2 diabetes mellitus with diabetic neuropathy, unspecified | CPT/HCPCS: 87102; 87206; 87220 ==

== ENCOUNTER 2024-09-12 15:31 | Emergency (ER) | payer MEDICARE, SELFPAY ==
[2024-09-12 15:50] VITALS: BP 127/50; PULSE 69; RESP 19; TEMP 36.9; O2SAT 96; BMI 27.9
--- NOTE | 2024-09-12 16:03 | EXP.UTC ---
Discharge Plan Disposition Patient Disposition: Home, Self-Care Condition: Good Prescriptions Prescriptions: New azithromycin [Zithromax Z-Harvey] 250 mg tablet See Rx Instructions .ROUTE .COMPLEX 5 Days Qty: 6 0RF Rx Instructions: For 250 mg dose pack: take 500 mg today (day 1), then 250 mg for 4 days (days 2-5) benzonatate 100 mg capsule 100 mg PO TID PRN (Reason: cough) Qty: 30 0RF No Action primidone 50 mg tablet 50 mg PO DAILY omeprazole 40 mg capsule,delayed release(DR/EC) 40 mg PO DAILY glimepiride 1 mg tablet 1 mg PO DAILY losartan-hydrochlorothiazide 100-25 mg tablet 1 tab PO DAILY doxazosin 8 mg tablet 8 mg PO DAILY metformin 1,000 mg tablet 1,000 mg PO DAILY diltiazem HCl 120 mg capsule,extended release 24hr 120 mg PO DAILY montelukast 10 mg tablet 10 mg PO DAILY furosemide 20 mg tablet 20 mg PO DAILY paroxetine HCl 40 mg tablet 40 mg PO DAILY buspirone 15 mg tablet 15 mg PO DAILY rosuvastatin 5 mg tablet 5 mg PO HS metoprolol tartrate 25 mg tablet 25 mg PO DAILY Patient Comments: TAKE 1 TABLET TWICE DAILY FOR BLOOD PRESSURE dapagliflozin propanediol [Farxiga] 10 mg tablet 10 mg PO DAILY Referrals Follow up/Referrals: Ramos Betts MD [Primary Care Provider] - See instructions Activity Restrictions/Add. Instructions Additional Instructions/Restrictions: *Monitor Temp, Over the counter Motrin or Tylenol as directed/as needed Tylenol every 4 hours and Motrin every 6 hours (as long as your family doctor has told you that you can take it) for fever or pain. and straight to ER if unable to lower temp less than 101.0 after medication given *Warm salt water gargles may help to soothe the throat *Throat Lozenges? *Warm fluids like tea with honey may help to soothe the throat? *Sleep elevated *Humidifier/Vaporizer Take medication as prescribed Follow up IMMEDIATELY for new or worsening symptoms or no Noticeable improvement over the next 48-72 hours. 911 for difficulty breathing or swallowing Your COVID test should be back later today or in the morning and will be available on the [facility] My Health Portal Clinical Impressions Clinical Impression: Sinusitis Qualifiers: Sinusitis location: unspecified location Chronicity: unspecified Qualified Code(s): J32.9 - Chronic sinusitis, unspecified Instructions Patient Instructions: Sinusitis, DI for Sinusitis Print Language Print Language: Citizen Of [place] Discharge ED Provider: Cassy López [facility] HPI General Stated complaint: TILLMAN body aches Mode of Arrival: Ambulatory Source of Information: Patient Limitations: No Limitations Time Seen by Provider: 09/12/24 16:03 Description of Symptoms (Recalled from Triage Doc. by RN): PATIENT C/O BODY ACHES, HEADACHE, LOW-GRADE FEVER, CONGESTION, AND PAIN TO LEFT UPPER CHEST AND UPPER BACK WITH A DEEP BREATH THAT STARTED THURSDAY HEENT Symptoms (Recalled from RN notes): Yes Resp Symptoms (Recalled from RN notes): No Skin Symptoms (Recalled from RN notes): No MS Symptoms (Recalled from RN notes): No Functional Status (Recalled from RN notes): WNL History of Present Illness Provider Complaint: Patient states that she has been sick since last week with sinus congestion and pressure, body aches, chills, headache, pressure behind her eyes, not much of cough but at times with have some pain with deep breath States today she was still not feeling well so she came in to get checked Related Data Home Medications ?Medication ?Instructions ?Recorded ?Confirmed buspirone 15 mg tablet 15 mg PO DAILY 09/12/24 09/12/24 dapagliflozin propanediol 10 mg 10 mg PO DAILY 09/12/24 09/12/24 tablet (Farxiga) diltiazem HCl 120 mg 120 mg PO DAILY 09/12/24 09/12/24 capsule,extended release 24 hr doxazosin 8 mg tablet 8 mg PO DAILY 09/12/24 09/12/24 furosemide 20 mg tablet 20 mg PO DAILY 09/12/24 09/12/24 glimepiride 1 mg tablet 1 mg PO DAILY 09/12/24 09/12/24 losartan 100 1 tab PO DAILY 09/12/24 09/12/24 mg-hydrochlorothiazide 25 mg tablet metformin 1,000 mg tablet 1,000 mg PO DAILY 09/12/24 09/12/24 metoprolol tartrate 25 mg tablet 25 mg PO DAILY 09/12/24 09/12/24 montelukast 10 mg tablet 10 mg PO DAILY 09/12/24 09/12/24 omeprazole 40 mg capsule,delayed 40 mg PO DAILY 09/12/24 09/12/24 release paroxetine HCl 40 mg tablet 40 mg PO DAILY 09/12/24 09/12/24 primidone 50 mg tablet 50 mg PO DAILY 09/12/24 09/12/24 rosuvastatin 5 mg tablet 5 mg PO HS 09/12/24 09/12/24 Previous Rx's ?Medication ?Instructions ?Recorded azithromycin 250 mg tablet See Rx Instructions PO .COMPLEX 5 09/12/24 (Zithromax Z-Harvey) days #6 tabs benzonatate 100 mg capsule 100 mg PO TID PRN cough #30 caps 09/12/24 Allergies Allergy/AdvReac Type Severity Reaction Status Date / Time adhesive Allergy Unknown ITCHING Verified 08/04/24 13:30 Sulfa (Sulfonamide Allergy Unknown Unknown Verified 08/04/24 13:30 Antibiotics) (SULFA allergy (SULFONAMIDE ANTIBIOTICS)) reaction Worker's Comp Is this a Worker's Comp case?: No [facility] Disclaimer: The information contained in this section may have been updated after the patient was seen, as this information can be updated by other users. Medical History MDD (major depressive disorder), recurrent episode Generalized anxiety disorder Diverticulosis History of left heart catheterization Obstructive sleep apnea Hyperlipidemia, mixed Iron deficiency anemia Cervical disc disease with myelopathy Hx gestational diabetes GERD (gastroesophageal reflux disease) Diabetes Depressed Anxiety Asthma Right shoulder injury Fall Carotid artery disease Pincer nail deformity Neuropathy History of suspected underlying diabetic neuropathy Overweight (BMI 25.0-29.9) Diabetic foot Acquired hammertoes of both feet Hallux valgus, acquired, bilateral IVANNA (cerebral atherosclerosis) Equivocal stress test Left carotid bruit SVT (supraventricular tachycardia) Holter monitor, abnormal HLD (hyperlipidemia) HTN (hypertension) Mitral valve regurgitation Pulmonary HTN Pre-ulcerative calluses Surgical History History of esophagogastroduodenoscopy (EGD) Hx of LASIK History of colonoscopy History of breast biopsy H/O local excision of skin lesion H/O ureteroscopy Family History Other Diabetes Family history of cancer Glaucoma Social History Smoking Status: Never smoker second hand exposure: No alcohol intake: never substance use type: denies use current occupational status: employed Travel in the last 8 weeks: None household members: none housing: house marital status: number of children: 4 current occupational exposures/hazards: No caffeine: Yes ROS Obtained: Yes All systems reviewed & no additional complaints except as documented and Yes Systems reviewed as appropriate & no additional complaints except as documented Constitutional Constitutional: Reports system reviewed and no additional complaints, except as documented, Reports as per HPI, Reports body ache, Reports chills, Reports fever(s) and Reports headache(s) ENT Ears, Nose, Mouth, and Throat: Reports system reviewed and no additional complaints, except as documented, Reports as per HPI, Reports headache(s), Reports sinus pain, Reports sinus pressure and Reports sore throat (scratchy) Cardiovascular Cardiovascular: Reports system reviewed and no additional complaints, except as documented, Reports as per HPI and Denies chest pain Respiratory Respiratory: Reports system reviewed and no additional complaints, except as documented, Reports as per HPI, Denies shortness of breath, Denies chest congestion and Reports cough (on and off and at times pain with cough) Gastrointestinal Gastrointestingal: Reports system reviewed and no additional complaints, except as documented and as per HPI Neurologic Neurologic: Reports headache(s) Physical Exam General General appearance: alert and in no apparent distress ENT ENT exam: Present mucous membranes moist Expanded ENT Exam Nose exam: Present sinus tenderness Throat exam: Present other (mild pharyngeal erythema noted with PND) Respiratory Respiratory exam: Present normal lung sounds bilaterally; Absent respiratory distress or wheezes Cardiovascular Cardiovascular exam: Present regular rate, normal rhythm and normal heart sounds Abdominal Exam Abdominal exam: Present soft and normal bowel sounds; Absent distention or tenderness Neurological Exam Neurological exam: Present alert, oriented X3 and normal gait Medical Decision Making Medical Records Screening: Per USPSTF and CDC recommendations, given the prevalence of disease in our region, it is our hospital?s policy to screen for HIV and viral Hepatitis for all patients aged 18 and over and those with ongoing risk factors. Gagan Inquiry Pt receiving controlled substance: No Gagan was queried for this patient: No Vital Signs: 09/12/24 15:50 Temperature 98.4 F Temperature Source Oral Pulse Rate [Left Brachial] 69 Respiratory Rate 19 Blood Pressure [Left Arm] 127/50 L Blood Pressure Mean [Left Arm] 75 Blood Pressure Source [Left Arm] Automatic Cuff Blood Pressure Position [Left Arm] Sitting 02 Sat by Pulse Oximetry 96 Oxygen Delivery Method Room Air Lab Data Lab results reviewed: Yes I reviewed the patient's lab results. Medical Decision Narrative: Patient states that she has taken azithromycin in the past without complications or reactions
[2024-09-12 16:21] VITALS: BP 127/50; PULSE 69; RESP 19; TEMP 36.9; O2SAT 96
[2024-09-12 16:22] LABS: UTC Influenza A Antigen Negative (Negative); UTC Influenza B Antigen Negative (Negative)
== END 2024-09-12 16:26 | disposition home or self-care (01) ==
PROVIDERS: Nurse Practitioner Family; Emergency Provider Nurse Practitioner; PCP Family Medicine
DX: J32.9 Chronic sinusitis, unspecified (principal); R50.9 Fever, unspecified; R51.9 Headache, unspecified; M79.10 Myalgia, unspecified site; R09.81 Nasal congestion; R07.89 Other chest pain
CPT/HCPCS: 87635; 87804; 99212; G0381

== ENCOUNTER 2025-01-24 19:31 | Emergency (ER) | payer MEDICARE, SELFPAY ==
--- OUTSIDE RECORDS SUMMARY | 2025-01-24 19:45 | XMS_ITS ---
Author Organization Unknown Problems Date Problem Result OnSetDate Icd10 SnomedCode Severity 02/02/2022 00:00:00 PTSD (post-traumatic stress disorder) F43.10 02/01/2023 00:00:00 Asthma J45.909 03/02/2023 00:00:00 Urinary incontinence R32 09/02/2023 00:00:00 Vitamin B12 deficiency E53.8 [id number] 09/30/2023 00:00:00 Diabetic neuropathy E11.40
--- OUTSIDE RECORDS SUMMARY | 2025-01-24 19:45 | XMS_ITS | Data Portability ---
Author Organization [place] - [facility] [place] Address [address] [place] [address] Care Team Providers Care Comic Writer Name Role Phone BETHANY CARTWRIGHT Primary Care Provider Assessment No assessment recorded. Plan of Treatment Reminders Order Date Submit Date Provider Last Modified By Organization Details Last Modified Time Details Appointments None recorded. Lab urinalysis , dipstick 2021 [email or web address] [facility], [address] [place] [address], [phone], 17:15:49 bun (blood urea nitrogen), serum or plasma 2021 [facility] (Lab Registration) , [address] [place] [address] [place], [address], 12:20:45 creatinine , serum or plasma 2021 [facility] (Lab Registration) , [address] [place] [address] [place], [address], 12:20:45 Referral None recorded. Procedures None recorded. Surgeries None recorded. Imaging XR, pyelogram - Delayed images 30-60 mins [email or web address] [place] [address] (Central Scheduling), [address] [place] [address] [place], [address], 09:36:33 Medication Orders None recorded. Patient TargetsNo targets recorded. Patient InstructionsNo instructions recorded. Reason for Referral None Reported. Results Created Date Observation Date Name Description Value Unit Range Abnormal Flag Note LastModifiedBy Organization Detail LastModifiedTime 08/28/20 22 08/28/2022 urina lysis , dipst ick Leukocytes (reference range) negati ve Not Available [facility] [address] [place] [address], [phone], 08/28/2022 11:46:21 08/28/20 22 08/28/2022 urina lysis , dipst ick Nitrite (reference range:) negati ve Not Available [address], [address], 08/28/2022 11:46:21 08/28/20 22 08/28/2022 urina lysis , dipst ick Urobilinogen (reference range) 0.2 Not Available [address], [address], 08/28/2022 11:46:21 08/28/20 22 08/28/2022 urina lysis , dipst ick Protein (reference range) negati ve Not Available [address], [address], 08/28/2022 11:46:21 08/28/20 22 08/28/2022 urina lysis , dipst ick pH (reference range 5-8.5) 5.5 Not Available [facility] [address] [place] [address], [address], 08/28/2022 11:46:21 08/28/20 22 08/28/2022 urina lysis , dipst ick Blood (reference range:) negati ve Not Available [address], [address], 08/28/2022 11:46:21 08/28/20 22 08/28/2022 urina lysis , dipst ick Specific [place] (reference range) 1.015 Not Available [facility] [address] [place] [address], [address], 08/28/2022 11:46:21 08/28/20 22 08/28/2022 urina lysis , dipst ick Ketone (reference range) negati ve Not Available [facility] [address] [place] [address], [address], 08/28/2022 11:46:21 08/28/20 22 08/28/2022 urina lysis , dipst ick Bilirubin (reference range) negati ve Not Available [facility] [address] [place] [address], [phone], 08/28/2022 11:46:21 08/28/20 22 08/28/2022 urina lysis , dipst ick Glucose (reference range) negati ve Not Available [facility] [address] [place] [address], [phone], 08/28/2022 11:46:21 08/05/20 22 07/31/2022 XR, abdom en, 1 view No observ ation record ed. [email or web address] [facility] [address] [place] [address] [address], [place], [address], 08/26/2022 07:37:12 Result Notes None recorded. Problems Name Problem SNOMED Code Status Onset Date Resolution Date Notes Provider Name and Address Organization Details Recorded Time Hypertensive disorder 21796221 Active 2021 ARUN Cat - [facility] - [place] & [place] 2 11:05:54 Anemia 223398586 Active 2021 ARUN Cat [facility] [place] 2 11:06:02 Diabetes mellitus 39686865 Active 2021 ARUN Cat [facility] [place] [facility] [place] 2 11:06:06 Gastroesophage al reflux disease 002625603 Active 2021 ARUN Cat - [facility] [place] [facility] [place] 2 11:06:11 Environmental allergy 415304726 Active 2021 Liss felix, ARUN - [facility] - [place] [facility] [place] 2 11:06:20 Kidney stone 28870744 Active 2021 ARUN Cat [facility] [place] [facility] [place] 2 11:06:30 Problem Notes None recorded. Procedures Surgical History Date Name Laterality Status Provider Name and Address Organization Details Recorded Time 2 Other completed Liss Harris [facility] [place] 08/20/2022 11:04:42 0 completed Liss Harris [facility] [place] 08/20/2022 11:04:27 0 Date of Last Colonoscopy completed Liss Harris [facility] [place] 08/20/2022 11:04:27 0 Colonoscopy completed Liss Harris [facility] [place] [facility] [place] 08/20/2022 11:04:41 3 [employer] [facility] Surgery completed Liss Harris [facility] [place] 08/20/2022 11:04:41 4 Breast Surgery completed Liss Harris [facility] [place] 08/20/2022 11:04:41 2 Tonsillectomy/A denoidectomy completed Liss Harris [facility] [place] 08/20/2022 11:04:42 Imaging Results Imaging Date Name Status LastModified by Organiz ation Details LastModified Time 07/31/2022 XR, abdomen, 1 view completed [email or web address] [address], [place], [address], 08/26/2022 07:37:12 Procedure Notes None recorded. Medical Equipment None Reported. Allergies Allergen ID Allergen Name Allergen Category Reaction Reaction Severity Criticality Documentation Date Start Date Code Code System Note Provider Name and Address Organization Details Recorded Time 84324 latex environme nt,medica tion Not available Not available Not available 08/20/2022 25528 91 RxNorm ARUN Cat [facility] [place] 2 11:04:18 18684 Substance with sulfonami de structure and antibacte rial mechanism of action (substanc e) medicatio n Not available Not available Not available 08/20/2022 53026 8003 SNOMED ARUN Cat [facility] [place] 2 11:05:01 63824 polymyxin B medicatio n Not available Not available Not available 08/20/2022 8536 RxNorm ARUN Cat [facility] [place] 2 11:05:32 14587 neomycin medicatio n Not available Not available Not available 08/20/2022 7299 RxNorm [facility] [place] 2 11:05:41 Medications Name Sig Start Date Stop Date Status Note LastModified by Organization Details LastModified Time primidone 50 mg tablet active Not Available Not Available Not Available oxazepam 10 mg capsule TAKE 1 CAPSULE BY MOUTH TWICE DAILY active Not Available Not Available No t Available ondansetron HCl 4 mg tablet TAKE ONE TABLET BY MOUTH EVERY 8 HOURS NEEDED active Not Available Not Available No t Available acetaminoph en 300 mg-codeine 30 mg tablet TAKE 1 TABLET BY MOUTH EVERY 4 TO 6 HOURS NEEDED FOR PAIN (DO NOT EXCEED 8 TABLETS IN 24 HOUR PERIOD) 08/17 completed Not Available Not Available Not Available omeprazole 40 mg capsule,del ayed release active Not Available Not Available Not Available dexamethaso ne 0.5 mg/5 mL oral solution SWISH AND swallow 10 ML (2 teaspoonf ul) BY MOUTH TWICE DAILY 08/17 completed Not Available Not Available Not Available losartan 100 mg-hydrochl orothiazide 25 mg tablet active Not Available Not Available Not Available doxazosin 8 mg tablet active Not Available Not Available No t Available metformin 1,000 mg tablet active Not Available Not Available Not Available diltiazem CD 120 mg capsule,ext ended release 24 hr active Not Available Not Available Not Available montelukast 10 mg tablet active Not Available Not Available Not Available furosemide 20 mg tablet active Not Available Not Available Not Available cefuroxime axetil 500 mg tablet TAKE ONE TABLET BY MOUTH EVERY TWELVE HOURS FOR 7 DAYS -- FINISH ALL MEDICINE -- 08/17 completed Not Available Not Available Not Available levofloxaci n 500 mg tablet TAKE ONE TABLET BY MOUTH EVERY DAY -- FINISH ALL MEDICINE -- 08/17 completed Not Available Not Available Not Available paroxetine 40 mg tablet active Not Available Not Available Not Available ondansetron 4 mg disintegrat ing tablet DISSOLVE 1 TABLET IN MOUTH TWICE DAILY NEEDED FOR NAUSEA 08/17 completed Not Available Not Available Not Available cefdinir 300 mg capsule TAKE ONE CAPSULE BY MOUTH TWICE DAILY -- FINISH ALL MEDICINE -- 08/17 completed Not Available Not Available Not Available buspirone 15 mg tablet TAKE ONE TABLET BY MOUTH TWICE DAILY FOR anxiety active Not Available Not Available No t Available moxifloxaci n 0.5 % eye drops INSTILL ONE DROP INTO AFFECTED EYE(S) TWICE DAILY FOR 7 DAYS 08/17 completed Not Available Not Available Not Available rosuvastati n 5 mg tablet active Not Available Not Available Not Available metoprolol tartrate 25 mg tablet active Not Available Not Available No t Available chlorhexidi ne gluconate 0.12 % mouthwash SWISH AND SPIT 15ML IN MOUTH TWICE DAILY FOR 30 SECONDS 08/17 completed Not Available Not Available Not Available Accu-Chek Vaishnavi Plus test strips active Not Available Not Available Not Available Vitals Date Recorded Body height Body mass index (BMI) Body weight Body temperature Provider Name and Address Organization Details Last Updated DateTime 08/20/2022 167.64 cm 24.7 kg/m2 43914.63 g 96.7 [degF] Liss Harris AYDE [facility] [place] 08/20/2022 11:04:03 Date Recorded Body height Body temperature Provider N klaus and Address Organization Details Last Updated DateTime 08/28/2022 167.64 cm 97.5 [degF] Liss GOODWIN [facility] [place] [facility] [place] 08/28/2022 11:28:43 Social History Question Answer Notes LastModified by Organizat ion Details LastModified Time Tobacco Smoking Status Never Smoker ARUN Cat [facility] [place] [facility] [place] 08/20/2022 11:04:37 Do You Have An Advance Directive? Yes [email or web address] Information not available 08/20/2022 What Is Your Level Of Alcohol Consumption? None [email or web address] Information not available 08/20/2022 Are You Blind Or Do You Have Difficulty Seeing? No [email or web address] Information not available 08/20/2022 What Was The Date Of Your Most Recent Tobacco Screening? 07/25/2022 [email or web address] Information not available 08/28/2022 Are You Passively Exposed To Smoke? No [email or web address] Information no t available 08/20/2022 Do You Feel Stressed (tense, Restless, Nervous, Or Anxious, Or Unable To Sleep At Night)? [id number] [email or web address] Information not available 08/20/2022 Do You Use Any Illicit Or Recreational Drugs? No [email or web address] Information not available 08/20/2022 Sex: Female Functional Status Question Answer Note LastModified by Organization D etails LastModified Time What is your exercise level? None Information not available 08/20/2022 Mental Status None recorded. Family History Relationship Description Onset Age of this Age Resolved Age Notes LastModified by Organization Details LastModified Time Father Suicide dec [email or web address] Not available 08/20/2022 11:07:36 Brother Suicide dec [email or web address] Not availabl e 08/20/2022 11:07:36 Mother Family history unknown Not available 2021 11:07:47 Sister Family history unknown [email or web address] Not available 2021 11:07:47 Medical History Condition Response Diabetes Y Vision or Eye Problems Y Anemia Y Reflux/GERD Y High Cholesterol Y Obstructive Sleep Apnea Y Hypertension Y Gynecological History Statement/Question Response Abnormal Pap N Date of Last Colonoscopy 07/12/2020 07/12/2020 Sexually Active? N Obstetrics History GPAL:G 0 P 0 0 0 0 Past Encounters Encounter ID Performer Location Encounter Start Date Encounter Closed Date Diagnosis/Indication Diagnosis SNOMED-CT Code Diagnosis ICD10 Code Diagnosis Note [id number] Jose Gee Jr, MD [facility] ARUN WALDROP [address] 08/20/2022 10:40:42 08/20/2022 11:48:53 Kidney stone 76484249 N20.0 Patient with history of 1.2 cm stone status post right ureterosco py, lithotrips y, stone extraction stent placement. Scans have shown no residual stone fragments as she does have some continuing right hydronephr osis and hydrourete r. Hydronephrosis 10277800 N13.30 patient with continued hydronephr osis and hydrourete r down to the mid ureter. There appears to be a tapered segment which was with the previous stone was noted. Patient was asymptomat ic from her previous stone and we discussed possible reasons for the continued hydronephr osis. One could be a ureteral stricture at the point of where the previous stone was. She could also have some chronic hydro nephrosis and hydrourete r due to longstandi ng swelling prior to the stone extraction . We discussed further workup with IVP to determine function of that kidney verses cystoscopy with retrograde pyelogram, possible ureterosco py and repeat stent placement. I favor that is probably more of a chronic problem will likely remain that way for the rest of her life. We will begin with an IVP and I will see her back after that to review the results and determine if anything else needs to be done. She is a little reluctant to undergo any further surgical procedures as she had a bad infection after her previous stone extraction . [id number] Jose Gee Jr, MD [facility] [address] [place] [id number] 08/28/2022 11:26:11 08/28/2022 11:36:57 Kidney stone 68683406 N20.0 Patient with history of 1.2 cm stone status post right ureterosco py, lithotrips y, stone extraction stent placement. Scans have shown no residual stone fragments as she does have some continuing right hydronephr osis and hydrourete r. Hydronephrosis 77880759 N13.30 patient's IVP was reviewed. There was excretion on the right at 3 minutes. She does have some caliectasi s and hydronephr osis and delayed excretion on the right side and the distal ureters are not visualized on either side. Postvoid film shows emptying of the right renal pelvis and ureter however. This kidney appears to be functionin g adequately with some delayed excretion but complete emptying of the right-side d collecting system upon urination. Believe the hydrourete lauren s was from long-stand ing obstructio n due to the large mid ureteral stone that was asymptomat ic. No further workup is recommende d. Have asked the patient to return if she should experience any right flank pain, nausea, hematuria or fever. Health Concerns Section Related Observation LastModified by Organization Detai ls LastModified Time None Recorded Concern Status LastModified by Organization Details LastModified Time None Recorded Advance Directives Directive Y: Payers Encounter Date Sequence Insurance Name Policy Number Policy [place] Covered Member ID [place] Member ID Guarantor Name 08/20/2022 1 [employer] (MEDICARE REPLACEMENT/A DVANTAGE - HMO) Nani Alex [id number] Nani Alex 08/28/2022 1 [employer] (MEDICARE REPLACEMENT/A DVANTAGE - HMO) Nani Alex [id number] Nani Alex Notes Date Note Type Note Provider Name and Address Organization Details Recorded Time 08/20/2022 text/html patient is due [age] white female referred for right-sided hydronephrosis and possible ureteral stricture. I saw this patient in sent in a and she underwent right ureteroscopy, lithotripsy of a 1.2 cm stone, stone extraction and stent placement at the end of June. The stent was removed about 5 days later per the patient. She states the evening after the stent was removed she began having mild of confusion and went to the hospital and was hospitalized for 6 days with a reported Pseudomonas infection. Patient had no symptoms of right renal colic from the 1.2 cm stone that had been present. Her preoperative scan showed right-sided hydronephrosis and hydroureter to the level of the stone. A CT scan was performed while in the hospital that continued to show right hydronephrosis and hydroureter down to level of for the previous stone was noted. No calcifications were noted in the area. Another CT was performed on July 31 which was unchanged from the previous. She is now referred for possible ureteral stricture. She denies any flank pain, fever, nausea, vomiting or chills. Jose Gee Jr, MD [address] [place] [address], [address], [place], [address], [facility] 08/20/2022 14:15:50 08/28/2022 text/html patient is a 72-year-old white female with recent finding of right-sided hydroureteronephrosi s. Patient does have a history of a large 1.2 cm stone in the mid ureter status post stone extraction and stent placement at the end of June. Her course was complicated by Pseudomonas urinary tract infection postop. She did have a stent for about 5 days after the surgery. Her preoperative scan showed right-sided hydronephrosis and hydroureter to the level of the stone. Postoperative scan showed the same. An IVP was performed earlier this week and she brings in for review. Continues to have no flank pain, fever, chills or hematuria. Her recent creatinine was 1.2. Jose Gee Jr, MD [address] [place] [address], [address], [place], [address], [place] - [facility] - [facility] 08/28/2022 12:53:27 OBGyn Episode No OBEpisode recorded.
[2025-01-24 20:05] VITALS: BP 160/63; PULSE 71; RESP 18; TEMP 37.4; O2SAT 93; BMI 27.4
[2025-01-24 20:45] VITALS: BP 138/45; PULSE 77; O2SAT 96
--- NOTE | 2025-01-24 20:45 | XR_ITS ---
PROCEDURE INFORMATION: Exam: XR Chest Exam date and time: 01/24/2025 8:46 PM Age: 74 years old Clinical indication: Other: Weakness; Additional info: General weakness TECHNIQUE: Imaging protocol: Radiologic exam of the chest. Views: 2 views. COMPARISON: CR XR CHEST 2V 02/05/2024 12:39 PM FINDINGS: Lungs: Unremarkable. No consolidation. Pleural spaces: Unremarkable. No pleural effusion. No pneumothorax. Heart/Mediastinum: Unremarkable. No cardiomegaly. Bones/joints: Unremarkable. IMPRESSION: No acute findings.
[2025-01-24 20:57] LABS: Microscopic, Urine URINE MICROSCOPIC (MICROSCOPIC)
[2025-01-24 20:58] LABS: Basophils # 0.1 K/mm3 (0-0.2); Basophils % 0.8 % (0.1-2.0); Eosinophils # 0.2 K/mm3 (0.0-0.4); Eosinophils % 3.1 % (0.1-12.0); Hematocrit 33.6 % (37.0-47.0); Hemoglobin 10.8 g/dL (12.2-16.2); Lymphocytes # 1.1 K/mm3 (0.7-4.5); Lymphocytes % 17.6 % (10-50); Mean Corpuscular HGB Conc 32.1 g/dL (31.8-35.4); Mean Corpuscular Hemoglobin 26.7 pg (27.0-31.2); Mean Corpuscular Volume 83.2 fl (81-99); Mean Platelet Volume 9.6 fl (7.4-10.4); Monocytes # 0.5 K/mm3 (0.1-1.0); Monocytes % 8.7 % (1.7-9.3); Neutrophils # 4.2 K/mm3 (1.8-7.8); Neutrophils % 69.3 % (37.0-80.0); Nucleated Red Blood Cells # 0 10^3/uL; Nucleated Red Blood Cells % 0 %; Platelet Count 238 K/mm3 (142-424); Red Blood Count 4.04 M/mm3 (4.20-5.40); Red Cell Distribution Width 13.8 % (11.5-17.5); Red Cell Distribution Width-SD 41.6 fL; White Blood Count 6.1 K/mm3 (4.8-10.8)
[2025-01-24 21:02] LABS: VBG Base Excess -1.8 mmol/L (-2.4-2.3); VBG HCO3 23.1 mmol/L (23-30); VBG Oxygen Saturation 90.4 % (50-70); VBG PCO2 38.6 mmol/L (35-51); VBG PH 7.39 mmol/L (7.31-7.41); VBG PO2 62.6 mmol/L (28-40); VBG Total CO2 24.2 mmol/L (23-27)
--- NOTE | 2025-01-24 21:03 | PC.NURSE ---
Critical received from RT Lily with lactic of 4.
[2025-01-24 21:06] LABS: Alanine Aminotransferase 28 U/L (12-78); Albumin Level 4.1 g/dl (3.5-5.0); Albumin/Globulin Ratio 1.4 (1.1-1.8); Alkaline Phosphatase 70 U/L (38-126); Anion Gap 17.5 mEq/L (5-15); Aspartate Amino Transferase 31 U/L (14-36); Bilirubin,Total 0.3 mg/dl (0.2-1.3); Blood Urea Nitrogen 23 mg/dl (7-17); Calcium 8.7 mg/dl (8.4-10.2); Carbon Dioxide 24 mmol/L (22.0-30.0); Chloride 98 mmol/L (98-107); Creatinine Clearance Estimated 59 mL/min (50-200); Estimated Glomerular Filt Rate 54 ml/min (>60); GFR (African American) 65 ML/MIN (>60); Glucose 123 mg/dl (74-100); Potassium 3.5 mmoL/L (3.5-5.1); Sodium 136 mmol/L (136-145); Total Protein,Serum 7.1 g/dl (6.3-8.2)
[2025-01-24 21:08] LABS: Appearance,Urine CLEAR (Clear); Bilirubin,Urine Negative (Negative); Blood, Urine Negative (Negative); Color,Urine YELLOW (Yellow); Glucose,Urine (UA) 1+ (Negative); Ketones,Urine Negative (Negative); Leukocyte Esterase,Urine TRACE (Negative); Nitrate,Urine Negative (Negative); Protein,Urine Negative (Negative); Urobilinogen,Urine 0.2 EU/dl (0.2)
[2025-01-24 21:11] LABS: C-Reactive Protein 3.7 mg/L (0-4)
[2025-01-24 21:24] LABS: Lactic Acid 3.4 mmol/L (0.7-2.1); Troponin I < 0.01 ng/ml (0.00-0.034)
[2025-01-24 21:25] LABS: Procalcitonin 0.051 ng/mL (0.0-2.0)
[2025-01-24 21:49] LABS: Squamous Epithelial Cell,Urine Occasional #/hpf (0-5)
[2025-01-24] MEDS: LACTATED RINGERS 1000ML 1,000 ML 999 ML IV (21:53)
[2025-01-24 21:55] LABS: HIV Combo NEGATIVE (Negative)
[2025-01-24 22:00] VITALS: BP 138/57; PULSE 73; O2SAT 95
[2025-01-24 22:03] LABS: Hepatitis C Ab Qual. W/ RFX NEGATIVE (Negative)
--- NOTE | 2025-01-24 22:05 | ECG_ITS ---
APPROVED REPORT Exam: Resting ECG HR:67 bpm ECG Measurements Heart Rate 67 AXES LA 139 P 43 QRSd 91 QRS 14 QT 400 T 95 QTc 416 Conclusion SINUS RHYTHM POSSIBLE INFERIOR MYOCARDIAL INFARCTION , PROBABLY OLD [30 ms Q WAVE IN II/aVF] No STEMI Electronically signed by : MARIAELENA KAISER, 01/25/2025 06:39:28
--- NOTE | 2025-01-24 22:28 | ED_ITS ---
Discharge Plan Disposition Condition: Good Chief Complaint: Hyper/Hypoglycemia Prescriptions Prescriptions: No Action gabapentin 100 mg capsule PO primidone 50 mg tablet 50 mg PO DAILY omeprazole 40 mg capsule,delayed release(DR/EC) 40 mg PO DAILY glimepiride 1 mg tablet 1 mg PO DAILY losartan-hydrochlorothiazide 100-25 mg tablet 1 tab PO DAILY doxazosin 8 mg tablet 8 mg PO DAILY metformin 1,000 mg tablet 1,000 mg PO DAILY diltiazem HCl 120 mg capsule,extended release 24hr 120 mg PO DAILY montelukast 10 mg tablet 10 mg PO DAILY furosemide 20 mg tablet 20 mg PO DAILY paroxetine HCl 40 mg tablet 40 mg PO DAILY buspirone 15 mg tablet 15 mg PO DAILY rosuvastatin 5 mg tablet 5 mg PO HS metoprolol tartrate 25 mg tablet 25 mg PO DAILY Patient Comments: TAKE 1 TABLET TWICE DAILY FOR BLOOD PRESSURE dapagliflozin propanediol [Farxiga] 10 mg tablet 10 mg PO DAILY Referrals Follow up/Referrals: Ramos Betts MD [Primary Care Provider] - See instructions Activity Restrictions/Add. Instructions Additional Instructions/Restrictions: You were evaluated in the emergency department today. Please take your blood sugar 3 times daily at least. Make sure to eat a well-balanced diet. Follow-up closely with your primary care provider. Return to the emergency department right away for new or worsening symptoms. Clinical Impressions Clinical Impression: Hypoglycemia Instructions Patient Instructions: DI for Hypoglycemia, DI for Hyperglycemia -- Adult Print Language Print Language: Hungarian Discharge ED Provider: Allegra Adam General Adult HPI General Chief complaint: Hyper/Hypoglycemia Stated complaint: Low Blood Sugar,nausea,TILLMAN,weakness Time Seen by Provider: 01/24/25 19:56 Mode of Arrival: Ambulatory Source of Information: Patient Description of Symptoms (Recalled from ER Triage Doc. by RN): Patient to ED with complaints of low blood sugar. She states that she was doing chores around the house when she felt her sugar drop. FSBS at home was in the 80's. Patient ate cookies, and a sandwich to which sugar came up to 90's but she states that it continues to drop. Patient also complains of frequent urination. Patient only on oral T2DM medications. History of Present Illness HPI narrative: This patient is a 74-year-old female with a history of type 2 diabetes on metformin, glimepiride, and Farxiga presented to the emergency department for evaluation with concern for low blood sugar. Patient states that she was doing chores around the house when she felt her sugar dropped. She checked it at home and it was in the 80s, so she ate cookies. She states her sugar only came up to the 90s and then started to drop again. Given this, she ate 2 peanut butter and jelly sandwiches but she notes that her sugar did not come up very high. She still felt shaky and weak. Given this, she came to the ED for evaluation. She notes she has had issues with blood sugar in the past but not recently. She denies any recent changes in diet, skipping of meals, increase in activity, or changes in medications. She does note frequent urination but she attributed this to blood sugar issues. No fevers, cough, congestion, chest pain, shortness of breath, or infectious symptoms. Related Data Home Medications ?Medication ?Instructions ?Recorded ?Confirmed buspirone 15 mg tablet 15 mg PO DAILY 09/12/24 11/24/24 dapagliflozin propanediol 10 mg 10 mg PO DAILY 09/12/24 11/24/24 tablet (Kristina) diltiazem HCl 120 mg 120 mg PO DAILY 09/12/24 11/24/24 capsule,extended release 24 hr doxazosin 8 mg tablet 8 mg PO DAILY 09/12/24 11/24/24 furosemide 20 mg tablet 20 mg PO DAILY 09/12/24 11/24/24 glimepiride 1 mg tablet 1 mg PO DAILY 09/12/24 11/24/24 losartan 100 1 tab PO DAILY 09/12/24 11/24/24 mg-hydrochlorothiazide 25 mg tablet metformin 1,000 mg tablet 1,000 mg PO DAILY 09/12/24 11/24/24 metoprolol tartrate 25 mg tablet 25 mg PO DAILY 09/12/24 11/24/24 montelukast 10 mg tablet 10 mg PO DAILY 09/12/24 11/24/24 omeprazole 40 mg capsule,delayed 40 mg PO DAILY 09/12/24 11/24/24 release paroxetine HCl 40 mg tablet 40 mg PO DAILY 09/12/24 11/24/24 primidone 50 mg tablet 50 mg PO DAILY 09/12/24 11/24/24 rosuvastatin 5 mg tablet 5 mg PO HS 09/12/24 11/24/24 gabapentin 100 mg capsule mg PO 11/24/24 11/24/24 Allergies Allergy/AdvReac Type Severity Reaction Status Date / Time adhesive Allergy Unknown ITCHING Verified 11/24/24 15:38 Sulfa (Sulfonamide Allergy Unknown Unknown Verified 11/24/24 15:38 Antibiotics) (SULFA allergy (SULFONAMIDE ANTIBIOTICS)) reaction PFSH PFS Disclaimer: The information contained in this section may have been updated after the patient was seen, as this information can be updated by other users. Medical History MDD (major depressive disorder), recurrent episode Generalized anxiety disorder Diverticulosis History of left heart catheterization Obstructive sleep apnea Hyperlipidemia, mixed Iron deficiency anemia Cervical disc disease with myelopathy Hx gestational diabetes GERD (gastroesophageal reflux disease) Diabetes Depressed Anxiety Asthma Right shoulder injury Fall Carotid artery disease Pincer nail deformity Neuropathy Overweight (BMI 25.0-29.9) Diabetic foot Acquired hammertoes of both feet Hallux valgus, acquired, bilateral IVANNA (cerebral atherosclerosis) Equivocal stress test Left carotid bruit SVT (supraventricular tachycardia) Holter monitor, abnormal HLD (hyperlipidemia) HTN (hypertension) Mitral valve regurgitation Pulmonary HTN Pre-ulcerative calluses Surgical History History of esophagogastroduodenoscopy (EGD) Hx of LASIK History of colonoscopy History of breast biopsy H/O local excision of skin lesion H/O ureteroscopy Family History Other Diabetes Family history of cancer Glaucoma Social History Smoking Status: Never smoker second hand exposure: No alcohol intake: never substance use type: denies use current occupational status: employed Travel in the last 8 weeks: None household members: none housing: house marital status: number of children: 4 current occupational exposures/hazards: No caffeine: Yes Have you lived/traveled outside [place] in past 30 days?: No Contact w/someone who lives/traveled outside US past 30 days?: No Exposure to someone with infectious disease in past 14 days?: No Do you have a fever (greater than 100.4 F or 38 C)?: No Have you tested positive for COVID-19: No Exposed to someone with COVID-19 in past 14 days?: No Do you have a sore throat?: No Do you have a cough?: No Do you have any weakness?: No Do you have any diarrhea?: No Are you experiencing any unusual bleeding?: No Do you have any muscle aches/pain?: No Do you have any abdominal pain?: No Are you experiencing loss of taste or smell?: No Other Medical History Have you received the Flu Vaccine for this season: No Have you received the Pneumonia Vaccine: Yes ROS Obtained: Yes All systems reviewed & no additional complaints except as documented Physical Exam General General appearance: alert and in no apparent distress Head Head exam: atraumatic and normocephalic Eye Eye exam: Present normal appearance, PERRL and EOMI ENT ENT exam: Present normal exam, normal oropharynx, mucous membranes moist and normal external ear exam Neck Neck exam: Present normal inspection, full ROM and trachea midline; Absent tenderness Chest Chest inspection: Present normal inspection and symmetric chest wall rise; Absent tenderness Respiratory Respiratory exam: Present normal lung sounds bilaterally; Absent respiratory distress, wheezes, stridor or accessory muscle use Cardiovascular Cardiovascular exam: Present regular rate and normal rhythm Abdominal Exam Abdominal exam: Present soft; Absent distention, tenderness or guarding Extremities Exam Extremities exam: Present normal inspection, full ROM and normal capillary refill; Absent tenderness or edema Back Exam Back exam: Present normal inspection and full ROM; Absent tenderness Neurological Exam Neurological exam: Present alert, oriented X3, CN II-XII intact and normal gait; Absent motor sensory deficit Psychiatric Psychiatric exam: Present normal affect and normal mood Skin Skin exam: Present warm and dry Medical Decision Making Medical Records Medical records reviewed: Yes I reviewed the patient's medical records. Screening: Per USPSTF and CDC recommendations, given the prevalence of disease in our region, it is our hospital?s policy to screen for HIV and viral Hepatitis for all patients aged 18 and over and those with ongoing risk factors. Gagan Inquiry Pt receiving controlled substance: No Vital Signs: 01/24/25 20:05 01/24/25 20:13 Temperature 99.3 F 98.1 F Temperature Source Oral Oral Pulse Rate 52 L Pulse Rate [Left] 71 Respiratory Rate 18 16 Blood Pressure 103/64 L Blood Pressure [Right Arm] 160/63 H Blood Pressure Mean [Right Arm] 95 Blood Pressure Source Automatic Cuff Blood Pressure Position Sitting Blood Pressure Position [Right Arm] Sitting 02 Sat by Pulse Oximetry 93 L Oxygen Delivery Method Room Air Room Air Lab Data Lab results reviewed: Yes I reviewed the patient's lab results. Lab Results 01/24/25 20:18: Urine Color Yellow, Urine Appearance Clear, Urine pH 6.0, Ur Specific [place] 1.010, Urine Protein Negative, Urine Glucose (UA) 1+, Urine Ketones Negative, Urine Blood Negative, Urine Nitrate Negative, Urine Bilirubin Negative, Urine Urobilinogen 0.2, Ur Leukocyte Esterase Trace, Urine RBC None, Urine WBC 3-5, Ur Squamous Epith Cells Occasional, Urine Bacteria None 01/24/25 20:44: VBG pH 7.39, VBG pCO2 38.6, VBG pO2 62.6 H, VBG HCO3 23.1, VBG Total CO2 24.2, VBG O2 Saturation 90.4 H, VBG Base Excess -1.8, VBG Lactic Acid 4.0 H 01/24/25 : WBC 6.1, RBC 4.04 L, Hgb 10.8 L, Hct 33.6 L, MCV 83.2, MCH 26.7 L, MCHC 32.1, RDW 13.8, Plt Count 238, MPV 9.6, Neut % (Auto) 69.3, Lymph % (Auto) 17.6, [place] % (Auto) 8.7, Eos % (Auto) 3.1, Baso % (Auto) 0.8, Neut # (Auto) 4.2, Lymph # (Auto) 1.1, [place] # (Auto) 0.5, Eos # (Auto) 0.2, Baso # (Auto) 0.1, Sodium 136, Potassium 3.5, Chloride 98, Carbon Dioxide 24, Anion Gap 17.5 H, BUN 23 H, Creatinine 1.00, Estimated Creat Clear 59, Estimated GFR 54 L, Est GFR ( Amer) 65, Glucose 123 H, Lactate 3.4 H, Calcium 8.7, Total Bilirubin 0.3, AST 31, ALT 28, Alkaline Phosphatase 70, Troponin I < 0.01, C-Reactive Protein 3.7, Total Protein 7.1, Albumin 4.1, Globulin 3.0, Albumin/Globulin Ratio 1.4, Procalcitonin 0.051, HCV Ab JOHAN w/Rflx PCR Qn Negative, HIV Ag/Ab Combo Qual Negative 01/24/25 Unknown 01/24/25 Unknown Orders (Tests/Meds): ED MEDICATIONS Discontinued Medications Generic Name Dose Route Start Last Admin Trade Name Simona PRN Reason Stop Dose Admin Lactated Ringer's 1,000 mls @ 999 mls/hr 01/24/25 21:21 01/24/25 21:53 Lactated Ringer's 1000 Ml Bag IV 01/24/25 22:21 999 mls/hr .Q1H1M ONE Administration ORDERS Category Date Time Status CXR 2 view (NOT portable) [XR chest 2V] Stat Exams 01/24/25 20:45 Completed CRP [C-Reactive Protein] Stat Lab 01/24/25 Completed Complete Blood Count Auto Diff Stat Lab 01/24/25 Completed Comprehensive Metabolic Panel Stat Lab 01/24/25 Completed HIV Combo Stat Lab 01/24/25 Completed Hepatitis C Ab Qual. W/ RFX Stat Lab 01/24/25 Completed Lactic Acid Stat Lab 01/24/25 Completed Procalcitonin Stat Lab 01/24/25 Completed Trop I [Troponin I] Stat Lab 01/24/25 Completed Troponin I Q3H Lab 01/24/25 23:45 Ordered Troponin I Q3H Lab 01/25/25 02:45 Ordered UA [Urinalysis and Microscopic] Stat Lab 01/24/25 20:18 Completed Urine Culture Stat Micro 01/24/25 20:18 Received VBG [Venous Blood Gas] Stat RT 01/24/25 20:44 Completed ECG Data Tracing #1: I reviewed this ECG and interpreted as documented below: Normal sinus rhythm with a ventricular of [address] changes concerning for ischemia. Normal intervals ECG initial impression date: 01/24/25 ECG initial impression time: 22:13 Medical Decision Narrative: In summary, this patient is a 74-year-old female presenting to the Emergency Department for evaluation of symptoms of low blood sugar at home. Differential diagnoses considered include but are not limited to hypoglycemia, sepsis, urinary tract infection, medication adverse reaction, dysrhythmia. Ruling out the most morbid conditions drove assessment. It should be noted patient's history includes type 2 diabetes, hypertension, hyperlipidemia which may or may not be at goal therapy. This complicates all aspects of care by increasing patient's risk for morbidity. On exam, the patient is lying in bed in no acute distress. She is alert, neurologically intact. Vitals are reassuring on cardiac telemetry. Fingerstick blood glucose upon arrival here is in the 100s. Workup included CBC, CMP, CRP, procalcitonin, troponin, chest x-ray, EKG, urinalysis to evaluate for possible inciting factors of hypoglycemia. I independently interpreted chest x-ray prior to the radiologist read and noted no focal consolidation concerning for pneumonia. Please see their read for final interpretation. Labs were obtained that demonstrated reassuring CBC with no significant leukocytosis. She does have mild anemia. Chemistry is reassuring with the exception of mildly elevated anion gap and BUN, as well as mild lactic acidosis. This is possibly from volume depletion. Urine is not concerning for infection On reassessment, patient had good improvement after administration of a bolus of IV fluids. Her blood sugar continued to increase here without intervention after she had eaten at home prior to arrival. Given that she is feeling better with no symptoms with normal vital signs and reassuring workup against any concerns for infection or acute cardiac issue, I feel that she is appropriate for discharge home with close follow-up with PCP and instructions to monitor her glucose closely at home. Strict return precautions were given. Critical Care Critical Care Time Critical Care Time: No
[2025-01-24 22:30] VITALS: BP 134/55; PULSE 66; O2SAT 94
[2025-01-24 23:09] VITALS: BP 134/55; PULSE 67; RESP 15; TEMP 36.7; O2SAT 92
[2025-01-25 00:50] LABS: Reflex Lactic Add Lactic Reflex
--- NOTE | 2025-01-26 09:45 | PC.NURSE ---
I spoke with about urine cultures results. no changes in treatment plan at this time.
== END 2025-01-24 23:16 | disposition home or self-care (01) ==
PROVIDERS: Emergency Provider Emergency Medicine; PCP Family Medicine
DX: E11.649 Type 2 diabetes mellitus with hypoglycemia without coma (principal); R11.0 Nausea; R53.1 Weakness; Z11.59 Encounter for screening for other viral diseases; Z11.4 Encounter for screening for human immunodeficiency virus [HIV]
CPT/HCPCS: 71046; 80053; 81001; 82803; 83605; 84145; 84484; 85025; 86140; 86803; 87086; 87389; 93005; 96360; 99284; J7120

== ENCOUNTER 2025-01-26 13:35 | Outpatient (CLI) | payer MEDICARE, SELFPAY ==
--- NOTE | 2025-01-26 13:37 | MM_ITS ---
PROCEDURE INFORMATION: Exam: MG Bilateral Screening 3D Mammography Exam date and time: 01/26/2025 1:43 PM Age: 74 years old Clinical indication: Screening examination TECHNIQUE: Imaging protocol: Bilateral Screening tomosynthesis and 2D mammography including computer-aided detection (CAD) when performed. COMPARISON: 1. MG MM DIG SCREENING MAMM BI W/CAD 01/21/2024 7:57 AM 2. MG MM DIG SCREENING MAMM BI W/CAD 11/25/2022 4:39 PM FINDINGS: MAMMOGRAPHY: Breast composition: There are scattered areas of fibroglandular density. Mass: None. Architectural distortion: None. Calcifications: No suspicious calcifications. Asymmetric density: None. Skin thickening: None. Axillary adenopathy: None. IMPRESSION: No mammographic evidence of malignancy. Annual screening is recommended unless otherwise clinically indicated. ASSESSMENT: BI-RADS Category 1: Negative.
== END 2025-01-26 23:59 | disposition home or self-care (01) ==
LOC: RAD 13:35
PROVIDERS: PCP Family Medicine; Visit Provider Family Medicine
DX: Z12.31 Encounter for screening mammogram for malignant neoplasm of breast (principal)
CPT/HCPCS: 77063; 77067

== ENCOUNTER 2025-04-05 07:34 | Outpatient (CLI) | payer MEDICARE, SELFPAY ==
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
--- OUTSIDE RECORDS SUMMARY | 2025-04-03 04:28 | XMS_ITS ---
Author Organization [facility] Address [address] [facility] [address] [facility] [address] [place] [id number] Care Team Providers Care Corporate Safety Director Name Role Phone Mago Betts Primary Care Provider Bipin Gould Unavailable [phone] REASON FOR VISIT Lab Order Encounters Encounter Location Date Provider Diagnosis [facility] [address] [facility] [address] [place] [id number] 04/03/2025 Mago Betts Type 2 diabetes mellitus with diabetic peripheral angiopathy without gangrene, without long-term current use of insulin E11.51 ; Essential hypertension I10 ; Dyslipidemia E78.5 and Vitamin B12 deficiency E53.8 Assessments Encounter Date Diagnosis (ICD Code) Assessment Notes Treatment Notes Treatment Clinical Notes Section Notes 04/03/2025 Type 2 diabetes mellitus with diabetic peripheral angiopathy without gangrene, without long-term current use of insulin (ICD-10 - E11.51) 04/03/2025 Essential hypertension (ICD-10 - I10) 04/03/2025 Dyslipidemia (ICD-10 - E78.5) 04/03/2025 Vitamin B12 deficiency (ICD-10 - E53.8) Plan Of Treatment Pending Test Test Name Order Date H-CBC 04/03/2025 H-Lipid Panel 04/03/2025 H-CMP 04/03/2025 H-Glycohemoglobin A1C 04/03/2025 H-VITAMIN B12 04/03/2025 Next Appt Details Provider Name:Mago Melton, 04/06/2025 11:45:00 AM, [address], [address], [place], [place], [id number], Progress Notes * ARCHANA ALEXB:1950 (74 yo F)Acc No.[id number]:04/03/2025 Patient: LUZ MARINA MADSEN :1950 A ge:74 Y S ex:Female Address:[address] [place] [address] [address], [place] [address] Subjective: * Chief Complaints: * L ab Order * Medical History: * Surgical History: * Hospitalization/Major Diagno stic Procedure: * Medications: Objective: * Vitals: * Physical Examination: Assessment: * Assessment: 1. T ype 2 diabetes mellitus with diabetic peripheral angiopathy without gangrene, without long-term current use of insulin - E11.51 2 . E ssential hypertension - I10 ? 3 . D yslipidemia - E78.5 4 . V itamin B12 deficiency - E53.8 ? Plan: * Treatment: 2. E ssential hypertension L AB: H-CBC L AB: H-CMP 3. D yslipidemia L AB: H-Lipid Panel 4. V itamin B12 deficiency L AB: H-VITAMIN B12 * Procedure Codes: * true * Date: Generated for Robbie parker/Manny/eTransmitting on: 0 04/05/2025 07:38 AM EDT
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
--- OUTSIDE RECORDS SUMMARY | 2025-04-05 07:38 | XMS_ITS | Data Portability ---
Author Organization [place] - [facility] [place] Address [address] [place] [address] Care Team Providers Care Phthalic Acid Purifier Name Role Phone CHAYBETHANY CHACON Primary Care Provider Assessment No assessment recorded. Plan of Treatment Reminders Order Date Submit Date Provider Last Modified By Organization Details Last Modified Time Details Appointments None recorded. Lab urinalysis , dipstick 2021 [email or web address] [facility], [address] [place] [address], [phone], 17:15:49 bun (blood urea nitrogen), serum or plasma 2021 [facility] (Lab Registration) , [address] [place] [address] [place], [address], 12:20:45 creatinine , serum or plasma 2021 [facility] (Lab Registration) , [address] [place] [address] [place], [address], 12:20:45 Referral None recorded. Procedures None recorded. Surgeries None recorded. Imaging XR, pyelogram - Delayed images 30-60 mins [address] (Central Scheduling), [address] [place] [address] [place], [address], 09:36:33 Medication Orders None recorded. Patient TargetsNo targets recorded. Patient InstructionsNo instructions recorded. Reason for Referral None Reported. Results Created Date Observation Date Name Description Value Unit Range Abnormal Flag Note LastModifiedBy Organization Detail LastModifiedTime 08/28/20 22 08/28/2022 urina lysis , dipst ick Leukocytes (reference range) negati ve Not Available [facility] [address] [place] [address], [phone], 08/28/2022 11:46:21 08/28/20 22 08/28/2022 urina lysis , dipst ick Nitrite (reference range:) negati ve Not Available [address], [address], 08/28/2022 11:46:21 08/28/20 22 08/28/2022 urina lysis , dipst ick Urobilinogen (reference range) 0.2 Not Available [address], [address], 08/28/2022 11:46:21 08/28/20 22 08/28/2022 urina lysis , dipst ick Protein (reference range) negati ve Not Available [address], [address], 08/28/2022 11:46:21 08/28/20 22 08/28/2022 urina lysis , dipst ick pH (reference range 5-8.5) 5.5 Not Available [facility] [address] [place] [address], [phone], 08/28/2022 11:46:21 08/28/20 22 08/28/2022 urina lysis , dipst ick Blood (reference range:) negati ve Not Available [facility] [address] [place] [address], [phone], 08/28/2022 11:46:21 08/28/20 22 08/28/2022 urina lysis , dipst ick Specific [place] (reference range) 1.015 Not Available [facility] [address] [place] [address], [phone], 08/28/2022 11:46:21 08/28/20 22 08/28/2022 urina lysis , dipst ick Ketone (reference range) negati ve Not Available [facility] [address] [place] [address], [phone], 08/28/2022 11:46:21 08/28/20 22 08/28/2022 urina lysis , dipst ick Bilirubin (reference range) negati ve Not Available [facility] [address] [place] [address], [address], 08/28/2022 11:46:21 08/28/20 22 08/28/2022 urina lysis , dipst ick Glucose (reference range) negati ve Not Available [facility] [address] [place] [address], [phone], 08/28/2022 11:46:21 08/05/20 22 07/31/2022 XR, abdom en, 1 view No observ ation record ed. [email or web address] [facility] [address] [place] [address] [address], [place], [address], 08/26/2022 07:37:12 Result Notes None recorded. Problems Name Problem SNOMED Code Status Onset Date Resolution Date Notes Provider Name and Address Organization Details Recorded Time Hypertensive disorder 78272918 Active 2021 [facility] - [facility] - [place] 2 11:05:54 Anemia 680942246 Active 2021 [facility] - [place] 2 11:06:02 Diabetes mellitus 94893744 Active 2021 [facility] Cat - [facility] - [place] 2 11:06:06 Gastroesophage al reflux disease 348850277 Active 2021 [facility] Cat [facility] [place] 2 11:06:11 Environmental allergy 888778743 Active 2021 [facility] Cat [facility] - [place] 2 11:06:20 Kidney stone 58778629 Active 2021 [facility] Cat [facility] [place] 2 11:06:30 Problem Notes None recorded. Procedures Surgical History Date Name Laterality Status Provider Name and Address Organization Details Recorded Time 2 Other completed Liss GOODWIN [facility] & [place] 08/20/2022 11:04:42 0 completed Liss Harris [facility] [place] [facility] [place] 08/20/2022 11:04:27 0 Date of Last Colonoscopy completed Liss Harris [facility]NT [facility] & [place] 08/20/2022 11:04:27 0 Colonoscopy completed Liss Harris [facility]NT [facility] & [place] 08/20/2022 11:04:41 3 Sales And Service Associate Surgery completed Liss GOODWIN [facility] & [place] 08/20/2022 11:04:41 4 Breast Surgery completed Liss Harris [facility] & [place] 08/20/2022 11:04:41 2 Tonsillectomy/A denoidectomy completed Liss Harris LPNT [facility] & [place] 08/20/2022 11:04:42 Imaging Results None recorded. Procedure Notes None recorded. Medical Equipment None Reported. Allergies Allergen ID Allergen Name Allergen Category Reaction Reaction Severity Criticality Documentation Date Start Date Code Code System Note Provider Name and Address Organization Details Recorded Time 83640 latex environme nt,medica tion Not available Not available Not available 08/20/2022 12371 91 RxNorm [facility] Cat [facility] [place] 2 11:04:18 47499 Substance with sulfonami de structure and antibacte rial mechanism of action (substanc e) medicatio n Not available Not available Not available 08/20/2022 44885 8003 [facility]ED [facility] [place] 2 11:05:01 77110 polymyxin B medicatio n Not available Not available Not available 08/20/2022 8536 RxNorm [facility] [place] 2 11:05:32 92269 neomycin medicatio n Not available Not available Not available 08/20/2022 7299 RxNorm ARUN Cat [facility] & [place] 2 11:05:41 Medications Name Sig Start Date [...] Updated DateTime 08/20/2022 167.64 cm 24.7 kg/m2 98413.63 g 96.7 [degF] Jasonazael [place] [facility] & [place] 08/20/2022 11:04:03 Date Recorded Body height Body temperature Provider N klaus and Address Organization Details Last Updated DateTime 08/28/2022 167.64 cm 97.5 [degF] Jasonazael [place] [facility] & [place] 08/28/2022 11:28:43 Social History Question Answer Notes LastModified by Organizat ion Details LastModified Time Tobacco Smoking Status Never Smoker [facility] [place] 08/20/2022 11:04:37 Do You Have An Advance Directive? Yes [email or web address] Information not available 08/20/2022 Are You Blind Or Do You Have Difficulty Seeing? No [email or web address] Information not available 08/20/2022 What Was The Date Of Your Most Recent Tobacco Screening? 07/25/2022 [email or web address] Information not available 08/28/2022 Are You Passively Exposed To Smoke? No Information not available 08/20/2022 Sex: Female Functional Status Question Answer Note LastModified by Organizat ion Details LastModified Time Do you use any illicit or recreational drugs? No [email or web address] Information not available 08/20/2022 What is your level of alcohol consumption? None Information not available 08/20/2022 What is your exercise level? None [email or web address] Information not available 08/20/2022 Mental Status Question Answer Note LastModified by Organization D etails LastModified Time Do you feel stressed (tense, restless, nervous, or anxious, or unable to sleep at night)? [id number] [email or web address] Information not available 08/20/2022 Family History Relationship Description Onset Age of this Age Resolved Age Notes LastModified by Organization Details LastModified Time Father Suicide dec Not available 08/20/2022 11:07:36 Brother Suicide dec [email or web address] Not availabl e 08/20/2022 11:07:36 Mother Family history unknown [email or web address] Not available 2021 11:07:47 Sister Family history unknown [email or web address] Not available 2021 11:07:47 Medical History Condition Response Obstructive Sleep Apnea Y Vision or Eye Problems Y High Cholesterol Y Anemia Y Diabetes Y Reflux/GERD Y Hypertension Y Gynecological History Statement/Question Response Abnormal Pap N Date of Last Colonoscopy 07/12/2020 07/12/2020 Sexually Active? N Obstetrics History GPAL:G 0 P 0 0 0 0 Past Encounters Encounter ID Performer Location Encounter Start Date Encounter Closed Date Diagnosis/Indication Diagnosis SNOMED-CT Code Diagnosis ICD10 Code Diagnosis Note [id number] Jose Gee Jr, MD [facility] [address] [place] [phone] 08/20/2022 10:40:42 08/20/2022 11:48:53 Kidney stone 78434334 N20.0 Patient with history of 1.2 cm stone status post right ureterosco py, lithotrips y, stone extraction stent placement. Scans have shown no residual stone fragments as she does have some continuing right hydronephr osis and hydrourete r. Hydronephrosis 07139425 N13.30 patient with continued hydronephr osis and [...] infection after her previous stone extraction . [id number] Jose Gee Jr, MD [facility] [address] [place] [phone] 08/28/2022 11:26:11 08/28/2022 11:36:57 Kidney stone 13432576 N20.0 Patient with history of 1.2 cm stone status post right ureterosco py, lithotrips y, stone extraction stent placement. Scans have shown no residual stone fragments as she does have some continuing right hydronephr osis and hydrourete r. Hydronephrosis 77984608 N13.30 patient's IVP was reviewed. There was [...] collecting system upon urination. Believe the hydrourete ronephrosi s was from long-stand ing obstructio n [...] None Recorded Advance Directives Directive Y: Payers Insurance Date Sequence Insurance Name Policy Number Policy [place] Covered Member ID [place] Member ID Guarantor Name 09/02/2022 1 [employer] (MEDICARE REPLACEMENT/A DVANTAGE - HMO) Nani Alex [id number] Nani Alex Notes Date Note Type Note [...] vomiting or chills. Jose Gee Jr, MD [address] [place] [address], [address], [place], [address], [place] 08/20/2022 14:15:50 08/28/2022 text/html patient is a [...] creatinine was 1.2. Jose Gee Jr, MD [address] [place] [address], [address], [place], [address], [facility] - [place] - [place] 08/28/2022 12:53:27 OBGyn Episode No OBEpisode recorded.
[2025-04-05 08:38] LABS: Basophils # 0.1 K/mm3 (0-0.2); Basophils % 1.6 % (0.1-2.0); Eosinophils # 0.2 Kmm3 (0.0-0.4); Eosinophils % 5.9 % (0.1-12.0); Hematocrit 33.8 % (37.0-47.0); Hemoglobin 10.1 g/dL (12.2-16.2); Immature Granulocytes # 0.01 10^3uL; Immature Granulocytes % 0.3 %; Lymphocytes # 0.8 K/mm3 (0.7-4.5); Lymphocytes % 21.8 % (10-50); Mean Corpuscular HGB Conc 29.9 g/dL (31.8-35.4); Mean Corpuscular Hemoglobin 24.3 pg (27.0-31.2); Mean Corpuscular Volume 81.4 fl (81-99); Mean Platelet Volume 9.9 fl (7.4-10.4); Monocytes # 0.3 K/mm3 (0.1-1.0); Monocytes % 8.4 % (1.7-9.3); Neutrophils # 2.3 K/mm3 (1.8-7.8); Nucleated Red Blood Cells # 0 10^3/uL; Nucleated Red Blood Cells % 0 %; Platelet Count 209 K/mm3 (142-424); Red Blood Count 4.15 M/mm3 (4.20-5.40); Red Cell Distribution Width 14.1 % (11.5-17.5); Red Cell Distribution Width-SD 41.6 fL; White Blood Count 3.7 K/mm3 (4.8-10.8)
[2025-04-05 09:31] LABS: Hemoglobin A1C 9.7 % (4.0-6.0)
[2025-04-05 10:32] LABS: Alanine Aminotransferase 17 U/L (12-78); Albumin Level 3.9 g/dl (3.5-5.0); Albumin/Globulin Ratio 1.5 (1.1-1.8); Alkaline Phosphatase 62 U/L (38-126); Aspartate Amino Transferase 24 U/L (14-36); Bilirubin,Total 0.3 mg/dl (0.2-1.3); Blood Urea Nitrogen 23 mg/dl (7-17); Calcium 9.7 mg/dl (8.4-10.2); Carbon Dioxide 30 mmol/L (22.0-30.0); Chloride 96 mmol/L (98-107); Chol/HDL Ratio 3.8 (1-3.5); Cholesterol 132 mg/dl (140-200); Estimated Glomerular Filt Rate 61 ml/min (>60); GFR (African American) 74 ML/MIN (>60); Globulin 2.6 g/dL (1.3-3.2); Glucose 179 mg/dl (74-100); HDL Cholesterol 35 mg/dl (40-60); Sodium 135 mmol/L (136-145); Total Protein,Serum 6.5 g/dl (6.3-8.2); Triglycerides 140 mg/dl (30-150); VLDL Cholesterol 28 mg/dL (0-40)
[2025-04-05 10:44] LABS: Direct LDL Cholesterol 69.53 mg/dL (100-129)
[2025-04-05 11:21] LABS: Vitamin B12 236 pg/mL (239-931)
== END 2025-04-05 23:59 | disposition home or self-care (01) ==
LOC: LAB 07:36
PROVIDERS: PCP Family Medicine; Visit Provider Family Medicine
DX: E78.5 Hyperlipidemia, unspecified (principal); E11.51 Type 2 diabetes mellitus with diabetic peripheral angiopathy without gangrene; I10 Essential (primary) hypertension; E53.8 Deficiency of other specified B group vitamins
CPT/HCPCS: 36415; 80053; 80061; 82607; 83036; 85025

== ENCOUNTER 2025-06-22 11:14 | Outpatient (CLI) | payer MEDICARE, SELFPAY ==
[2025-06-22 12:03] LABS: Hematocrit 34.0 % (37.0-47.0); Hemoglobin 10.3 g/dL (12.2-16.2); Mean Corpuscular HGB Conc 30.3 g/dL (31.8-35.4); Mean Corpuscular Hemoglobin 24.8 pg (27.0-31.2); Mean Corpuscular Volume 81.9 fl (81-99); Nucleated Red Blood Cells % 0 %; Platelet Count 216 K/mm3 (142-424); Red Blood Count 4.15 M/mm3 (4.20-5.40); Red Cell Distribution Width-SD 44.7 fL; White Blood Count 4.5 K/mm3 (4.8-10.8)
[2025-06-22 12:27] LABS: Hemoglobin A1C 7.2 % (4.0-6.0)
[2025-06-22 12:59] LABS: 25-OH Vitamin D, Total 34.9 ng/mL (30-100)
== END 2025-06-22 23:59 | disposition home or self-care (01) ==
LOC: LAB 11:15
PROVIDERS: PCP Family Medicine; Visit Provider Student in an Organized Health Care Education/Training Program
DX: E11.40 Type 2 diabetes mellitus with diabetic neuropathy, unspecified (principal)
CPT/HCPCS: 36415; 82043; 82306; 83036; 85027